=== PATIENT | male | born 2000 | race African-American/Black ===

== ENCOUNTER 2020-09-26 14:11 | Outpatient (REF) | payer MEDICAID, SELFPAY | END 2020-09-26 14:12 | disposition home or self-care (01) | LOC: HO.LAB 14:11 | PROVIDERS: Visit Provider Internal Medicine | DX: Z20.828 Contact with and (suspected) exposure to other viral communicable diseases (principal) | CPT/HCPCS: C9803; U0003 ==

== ENCOUNTER 2020-10-06 12:03 | Outpatient (REF) | payer MEDICAID, SELFPAY | END 2020-10-06 12:04 | disposition home or self-care (01) | LOC: HO.LAB 12:03 | PROVIDERS: Visit Provider Internal Medicine | DX: Z20.828 Contact with and (suspected) exposure to other viral communicable diseases (principal) | CPT/HCPCS: C9803; U0003 ==

== ENCOUNTER 2020-11-24 15:35 | Outpatient (REF) | payer MEDICAID, SELFPAY | END 2020-11-24 15:36 | disposition home or self-care (01) | LOC: HO.LAB 15:35 | PROVIDERS: Visit Provider Internal Medicine | DX: Z20.828 Contact with and (suspected) exposure to other viral communicable diseases (principal) | CPT/HCPCS: 36415; C9803; U0003 ==

== ENCOUNTER 2022-03-08 12:19 | Emergency (ER) | payer MEDICAID, SELFPAY ==
--- NOTE | ~2022-03-08 | XR_ITS ---
EXAMINATION: XR CHEST CLINICAL INFORMATION: Cough for 3 weeks COMPARISON: None TECHNIQUE: 2 views of the chest were obtained. FINDINGS: No significant abnormality is noted involving the heart, lungs, mediastinum, bony thorax or soft tissues. XR/XR chest 2V IMPRESSION: No acute disease.
[2022-03-08 12:31] VITALS: BP 144/88; PULSE 64; RESP 16; TEMP 36.3; O2SAT 100; BMI 41.5
[2022-03-08 13:18] LABS: COVID-19 Test Negative (Negative); IDNOW Serial# 16C4AD1C; Influenza A Negative (Negative); Influenza B2 Negative (Negative)
--- NOTE | 2022-03-08 13:56 | ED_ITS ---
HPI - URI/Sore Throat General Chief Complaint: Upper Respiratory Symptoms Stated Complaint: coughing Time Seen by Provider: 03/08/22 12:49 Source: patient Mode of arrival: ambulatory Limitations: no limitations History of Present Illness HPI Narrative: 22-year-old male with a past medical history of childhood asthma currently using his albuterol inhaler presenting to the ED with complaints of 3 weeks of nasal congestion/rhinorrhea with a dry cough that has now started to produce some yellow colored sputum over the past few days. He denies any recent travel or sick contacts. He denies ever being intubated or hospitalized for his asthma. He denies any measured fevers, headaches, neck pain/stiffness, chest pain, shortness of breath, dyspnea on exertion, orthopnea, nausea/vomiting/diarrhea constipation, abdominal pain, back pain, lower extremity edema or calf tenderness or any other symptoms complaints or concerns at this time. MD elicited complaint: cough, rhinorrhea and nasal congestion Pertinent past history: asthma Onset (ago): week(s) (3) Consistency: constant and progressively worsening Severity: moderate Description of mucous: clear and yellow Able to tolerate fluids by mouth: Yes Exacerbating factors: nothing Relieving factors: nothing Associated symptoms: rhinorrhea and nasal congestion Treatments prior to arrival: other ([id number] medicine and his albuterol inhaler) Related Data Previous Rx's Medication Instructions Recorded albuterol sulfate 0.63 mg/3 mL 0.63 mg (3 mL) INHALATION QID PRN 03/08/22 solution for nebulization #75 ml albuterol sulfate 90 mcg/actuation 1 inh INHALATION QID PRN #8.5 g 03/08/22 aerosol inhaler azithromycin 250 mg tablet See Rx Instructions PO .COMPLEX #6 03/08/22 tab codeine 10 mg-guaifenesin 100 mg/5 5 ml PO Q6H PRN #120 ml 03/08/22 mL oral liquid (Guaifenesin AC) nebulizers (AeroEclipse II #1 ea 03/08/22 Nebulizer) prednisone 20 mg tablet 40 mg PO DAILY 5 Days #10 tab 03/08/22 Allergies Allergy/AdvReac Type Severity Reaction Status Date / Time animal dander Allergy Itchy Eyes Verified 03/08/22 12:38 shrimp AdvReac Intermediate Gastrointestinal Verified 03/08/22 12:38 Upset Review of Systems Review of Systems: Constitutional : denies med noncompliance, no history of PE or DVT, denies recent travel, No Fever, No Chills ENT/Mouth : + nasal congestion/rhinorrhea, No Hoarseness, No sore throat, No Sinus Pressure, No Ear Pain, No stridor, Eyes: No Redness, No Discharge, No Vision Changes Cardiovascular : No Chest Pain, No SOB, No Dyspnea on Exertion, No Edema, no pleurisy, Respiratory : + Cough, No wheezing, No Sputum, no stridor, no hemoptysis, Gastrointestinal : No Nausea, No Vomiting, No Diarrhea, No abdominal Pain Genitourinary : No Dysuria, No Hematuria Musculoskeletal : No joint pain/swelling, No Myalgias Extremities: no extremity swelling /pain Skin : No rash, no itching, no swelling Neuro : No Weakness, No Numbness, No Headache, No Dizziness, No Paresthesias Psych : No anxiety, depression Heme/Lymph: No Bruising, No Bleeding Endocrine : No Polyuria, No Polydipsia Yes all other systems are reviewed and are negative [facility] Past Medical History Attestation statement: The following information was validated with the patient. Medical History Asthma Obesity Seasonal allergies Social History Social History Advance Directives: No Advance Directives Information Provided: No Physical Exam Vital Signs: Vital Signs: Last Vital Signs Temp 97.4 F 03/08/22 12:31 Pulse 64 03/08/22 12:31 Resp 16 03/08/22 12:31 BP 144/88 H 03/08/22 12:31 Pulse Ox 100 03/08/22 12:31 BMI result Body Mass Index 41.5 vital signs have been reviewed as normal and appeared to be correct. Blood pressure 144/88 Heart rate normal. Respiration rate normal. Temperature normal. Oxygen saturation normal. Appearance: Alert. Oriented X3. No acute distress. Head: Normal external exam. Normocephalic. Atraumatic. Eyes: PERRLA. EOMI. Conjunctiva and sclera normal. Eyelids normal. ENT: EAC normal. TM's Normal. Pharynx normal. Uvula midline. Moist mucous membranes. No lesions/ulcerations or masses noted on the tongue. Normal voice. No trismus noted. No drooling noted. No muffled voice noted. Neck: Normal inspection. Neck supple. FROM. No adenopathy. Thyroid Normal. No tracheal deviation noted. No crepitus is noted. No meningeal signs. No neck mass noted. No signs of trauma noted. CVS: Normal heart rate and rhythm. Heart sound normal. Pulses normal throughout. No murmurs/rales/gallops. Respiratory: No respiratory distress. Painless inspiration. Breath sounds normal. No wheezes/rales/rhonchi noted. Chest nontender. No crepitus is noted. No signs of trauma noted. No accessory muscle usage noted or decreased air movement noted. No signs of trauma. Back: Full range of motion noted. Skin: Skin warm and dry. Normal skin color. Normal skin turgor. No rashes/lesions/lacerations noted. Extremities: No lower extremity edema. No calf tenderness is noted. Extremities exhibit normal range of motion and nontender. Neuro: Oriented X 3. No motor deficit. No sensory deficit. Reflexes normal. Normal steady gait. No focal neuro deficits noted. CN's II-XII intact bilaterally? Vascular: + radial pulses/+ 2 distal pedal pulses/+2 dorsalis pedis b/l. Normal cap refill. No cyanosis noted to upper extremity nails and lower extremity toes nails. Course Course Course Narrative: 1:30pm - 22-year-old male with a past medical history of childhood asthma currently using his albuterol inhaler presenting to the ED with complaints of 3 weeks of nasal congestion/rhinorrhea with a dry cough that has now started to produce some yellow colored sputum over the past few days. Patient negative for COVID and flu. Obtain chest x-ray. Chest x-ray negative will DC home antibiotics for bronchitis and symptomatic treatment instructions return if any new or worsening symptoms. Patient understands agrees with this plan. MDM - URI/Sore Throat Medical Records Attestation: I reviewed the patient's medical records. Lab Data Labs: Lab Results 03/08/22 03/08/22 Range/Units 12:54 12:54 COVID-19 (DONELL) Negative (Negative) COVID-19 Clin Com See Note Influenza Type A (SHERICE) Negative (Negative) Influenza Type B (SHERICE) Negative (Negative) Influenza A & B Note See Note Imaging Data Chest x-ray: Attestation: I personally reviewed and interpreted this imaging study as follows: Discharge Plan Discharge Clinical Impression: Asthma exacerbation, Bronchitis, Acute bronchitis Patient Disposition: Home, Self-Care Instructions: Asthma (DC), Acute Bronchitis (ED) Prescriptions: New azithromycin 250 mg tablet See Rx Instructions PO .COMPLEX Qty: 6 0RF Rx Instructions: take 500 mg today (day 1), then 250 mg for 4 days (days 2-5) albuterol sulfate 90 mcg/actuation HFA aerosol inhaler 1 inh inhalation QID PRN (Reason: shortness of breath or wheezing) Qty: 8.5 0RF (DME) AeroEclipse II Nebulizer Misc See Rx Instructions .ROUTE .MEDSUPPLY Qty: 1 0RF Rx Instructions: As directed albuterol sulfate 0.63 mg/3 mL solution for nebulization 0.63 mg inhalation QID PRN (Reason: shortness of breath or wheezing) Qty: 75 0RF prednisone 20 mg tablet 40 mg PO DAILY 5 Days Qty: 10 0RF codeine-guaifenesin [Guaifenesin AC] 10-100 mg/5 mL liquid 5 ml PO Q6H PRN (Reason: cold symptoms) Qty: 120 0RF Referrals: Physician,None [Primary Care Provider] - (your pcp) Stand Alone Forms: Work/School Release Print Language: Burmese
== END 2022-03-08 14:09 | disposition home or self-care (01) ==
PROVIDERS: Physician Assistant Medical; Emergency Provider Student in an Organized Health Care Education/Training Program
DX: J20.9 Acute bronchitis, unspecified (principal); J45.901 Unspecified asthma with (acute) exacerbation; R05.9 Cough, unspecified; Z20.822 Contact with and (suspected) exposure to COVID-19; Z79.899 Other long term (current) drug therapy
CPT/HCPCS: 71046; 87502; 87635; 99283

== ENCOUNTER 2022-12-11 09:22 | Emergency (ER) | payer MEDICAID, SELFPAY ==
[2022-12-11 09:28] VITALS: BP 140/85; PULSE 77; RESP 18; TEMP 35.9; O2SAT 100; BMI 42.3
[2022-12-11 09:30] VITALS: BP 140/85; PULSE 77; RESP 18; TEMP 35.9; O2SAT 100
--- NOTE | 2022-12-11 09:38 | ED_ITS ---
HPI - Back Pain/Injury General Chief Complaint: Back Pain/Injury Stated Complaint: L neck/shoulder pain Time Seen by Provider: 12/11/22 09:28 Source: patient Mode of arrival: ambulatory Limitations: no limitations History of Present Illness MD elicited complaint: back pain Onset (ago): day(s) (2) Timing: constant and progressively worsening Severity: mild Similar Symptoms Previously: Yes Quality: aching Location: thoracic spine Radiation: none Exacerbating factors: other ( certain movements) Relieving factors: none Context: other ( patient reports he was just sitting and had a pain and he stretched his back and since then the pain worsened) Associated symptoms: denies other symptoms Work related injury: No Related Data Previous Rx's Medication Instructions Recorded albuterol sulfate 0.63 mg/3 mL 0.63 mg (3 mL) inhalation QID PRN 03/08/22 solution for nebulization shortness of breath or wheezing #75 mL albuterol sulfate 90 mcg/actuation 1 inh inhalation QID PRN shortness 03/08/22 aerosol inhaler of breath or wheezing #8.5 grams azithromycin 250 mg tablet See Rx Instructions PO .COMPLEX #6 03/08/22 tabs codeine 10 mg-guaifenesin 100 mg/5 5 ml PO Q6H PRN cold symptoms #120 03/08/22 mL oral liquid (Guaifenesin AC) mL nebulizers (AeroEclipse II #1 ea 03/08/22 Nebulizer) prednisone 20 mg tablet 40 mg PO DAILY rash 5 days #10 tabs 03/08/22 cyclobenzaprine 10 mg tablet 10 mg PO Q8H #14 tabs 12/11/22 lidocaine 5 % topical patch 1 patch topical DAILY pain #15 ea 12/11/22 (Lidoderm) naproxen 500 mg tablet 500 mg PO BID PRN pain #14 tabs 12/11/22 Allergies Allergy/AdvReac Type Severity Reaction Status Date / Time animal dander Allergy Itchy Eyes Verified 03/08/22 12:38 shrimp AdvReac Intermediate Gastrointestinal Verified 03/08/22 12:38 Upset Review of Systems Review of Systems: Constitutional : No trauma, No Weight loss, No Fever, No Chills, ENT/Mouth : No Hearing loss, No Ear Pain, No Nasal Congestion, No Sinus Pain, No Hoarseness, No sore throat, No Rhinorrhea, No Swallowing Difficulty Cardiovascular : No Chest Pain, No SOB Respiratory : No Cough, No Dyspnea Gastrointestinal : No Nausea, No Vomiting, No Diarrhea, No abdominal Pain, No Hematochezia, No Melena Genitourinary : No Dysuria, No Urinary Frequency, No Hematuria, No Urinary or Bowel Incontinence/retention Musculoskeletal : + Back pain, No neck pain, No joint stiffness, No joint swelling Skin : No Skin Lesions, No rash or signs of infection Neuro : No Weakness, No radiation, No Numbness, No Paresthesias, No headache, no loss of bowel or bladder incontinence, no saddle anesthesia, Focal weakness, No radiation Denies history of IV drug usage. Yes all other systems are reviewed and are negative [facility] Past Medical History Attestation statement: The following information was validated with the patient. Source: old records reviewed and nursing notes reviewed Medical History Asthma Obesity Seasonal allergies Social History Social History Smoked in Last 30 Days: Yes Use of substances other than those prescribed or required for medical reasons: No Physical Exam Vital Signs: Vital Signs: Last Vital Signs Temp 96.7 F L 12/11/22 09:30 Pulse 77 12/11/22 09:30 Resp 18 12/11/22 09:30 BP 140/85 H 12/11/22 09:30 Pulse Ox 100 12/11/22 09:30 O2 Del Method 12/11/22 09:30 BMI result Body Mass Index 42.3 vital signs have been reviewed as normal and appeared to be correct. Blood pressure 140/85. Heart rate normal. Respiration rate normal. Temperature normal. Oxygen saturation normal. Appearance: Alert. Oriented X3. No acute distress. Head: Normal external exam. Normocephalic. Atraumatic. Eyes: PERRLA. EOMI. Conjunctiva and sclera normal. Eyelids normal. ENT: Pharynx normal. Uvula midline. Moist mucous membranes. No trismus noted. No drooling noted. No muffled voice noted. Neck: Normal inspection. Neck supple. FROM. No adenopathy. Thyroid Normal. No meningeal signs. No neck mass noted. CVS: Normal heart rate and rhythm. Respiratory: No respiratory distress. Painless inspiration. Back: Full range of motion noted. No obvious deformities, or edema. Mild para- spinal muscular tenderness at left thoracic region. No mid thoracic cervical or lumbar tenderness noted. Full ROM in back and lower extremities. 5/5 strength hip extension/flexion, abduction, adduction. Straight leg raise test negative on right; Straight leg raise test negative on left; Reflexes normal ankle and knee bilaterally; EHL motor strength normal bilaterally. No rashes/lesion/induration/fluctuance or signs infection noted. Skin: Skin warm and dry. Normal skin color. Normal skin turgor. No rashes/lesions/lacerations noted. Extremities: Extremities exhibit normal range of motion. Extremities nontender. Neuro: Oriented X 3. No motor deficit. No sensory deficit. Reflexes normal. Patient has a normal steady gait. Course Course Course Narrative: Pt c likely muscular pain, but could be herniated disc. Neuro exam shows no deficits. Not c/w AAA/epidural abscess/dissection.No high risk Hx (Incont, fever, immunosupp, recent surgery/LP, coag, signif trauma, wt loss, puls mass, hx/o Ca, TB, or IVDU) to warrant MRI/CT today. Not c/w Pyelo/UTI/kidney stone/spinal fx. Not cauda equina syndrome. Imaging not currently indicated. DC c meds and f/u. Discharge Plan Discharge Clinical Impression: Strain of thoracic region Patient Disposition: Home, Self-Care Instructions: Muscle Strain (ED) Prescriptions: New naproxen 500 mg tablet 500 mg PO BID PRN (Reason: pain) Qty: 14 0RF cyclobenzaprine 10 mg tablet 10 mg PO Q8H Qty: 14 0RF lidocaine [Lidoderm] 5 % adhesive patch,medicated 1 patch topical DAILY Qty: 15 0RF Rx Instructions: leave on most painful area for up to 12 hrs. May be substituted No Action azithromycin 250 mg tablet See Rx Instructions PO .COMPLEX Qty: 6 0RF Rx Instructions: take 500 mg today (day 1), then 250 mg for 4 days (days 2-5) albuterol sulfate 90 mcg/actuation HFA aerosol inhaler 1 inh inhalation QID PRN (Reason: shortness of breath or wheezing) Qty: 8.5 0RF (DME) AeroEclipse II Nebulizer Misc See Rx Instructions .ROUTE .MEDSUPPLY Qty: 1 0RF Rx Instructions: As directed albuterol sulfate 0.63 mg/3 mL solution for nebulization 0.63 mg inhalation QID PRN (Reason: shortness of breath or wheezing) Qty: 75 0RF prednisone 20 mg tablet 40 mg PO DAILY 5 Days Qty: 10 0RF codeine-guaifenesin [Guaifenesin AC] 10-100 mg/5 mL liquid 5 ml PO Q6H PRN (Reason: cold symptoms) Qty: 120 0RF Referrals: Physician,None [Primary Care Provider] - 2 days ( your PCP as needed) Stand Alone Forms: Work/School Release
== END 2022-12-11 10:09 | disposition home or self-care (01) ==
PROVIDERS: Emergency Provider Emergency Medicine
DX: M54.6 Pain in thoracic spine (principal); M54.50 Low back pain, unspecified; Z79.899 Other long term (current) drug therapy
CPT/HCPCS: 99283; 99284

== ENCOUNTER 2023-05-29 19:49 | Emergency (ER) | payer OTHER, SELFPAY ==
[2023-05-29 20:03] VITALS: BP 130/75; PULSE 86; RESP 18; TEMP 36.4; O2SAT 99; BMI 45.3
--- NOTE | 2023-05-29 20:03 | ED_ITS ---
HPI - General Adult General Chief complaint: Abdominal Pain Stated complaint: Abd pain/n/d Time Seen by Provider: 05/29/23 22:15 Source: patient Mode of arrival: ambulatory History of Present Illness HPI narrative: 23-year-old male who has a positive sick contact as well as stating he may have the in a bed sandwich yesterday as he has had multiple episodes of watery diarrhea as well as nausea, vomiting prevented him from eating or drinking anything. He denies any fevers, chills, urinary symptoms and has no other past medical history. Related Data Previous Rx's Medication Instructions Recorded albuterol sulfate 0.63 mg/3 mL 0.63 mg (3 mL) inhalation QID PRN 03/08/22 solution for nebulization shortness of breath or wheezing #75 mL albuterol sulfate 90 mcg/actuation 1 inh inhalation QID PRN shortness 03/08/22 aerosol inhaler of breath or wheezing #8.5 grams azithromycin 250 mg tablet See Rx Instructions PO .COMPLEX #6 03/08/22 tabs codeine 10 mg-guaifenesin 100 mg/5 5 ml PO Q6H PRN cold symptoms #120 03/08/22 mL oral liquid (Guaifenesin AC) mL nebulizers (AeroEclipse II #1 ea 03/08/22 Nebulizer) prednisone 20 mg tablet 40 mg PO DAILY rash 5 days #10 tabs 03/08/22 cyclobenzaprine 10 mg tablet 10 mg PO Q8H #14 tabs 12/11/22 lidocaine 5 % topical patch 1 patch topical DAILY pain #15 ea 12/11/22 (Lidoderm) naproxen 500 mg tablet 500 mg PO BID PRN pain #14 tabs 12/11/22 ondansetron HCl 4 mg tablet 4 mg PO Q8H PRN nausea and 05/29/23 vomiting 4 days #7 tabs Allergies Allergy/AdvReac Type Severity Reaction Status Date / Time animal dander Allergy Itchy Eyes Verified 03/08/22 12:38 shrimp AdvReac Intermediate Gastrointestinal Verified 03/08/22 12:38 Upset Review of Systems Review of Systems: Pertinent positives and negatives as stated in HPI PMFSH Past Medical History Source: nursing notes reviewed Medical History Asthma Obesity Seasonal allergies Social History Social History Alcohol intake: current Alcohol intake frequency: holidays/special occasions only Smoked in Last 30 Days: Yes Use of substances other than those prescribed or required for medical reasons: No Advance Directives: No Advance Directives Information Provided: No Physical Exam ED Vital Signs: Vital Signs - 24 hr 05/29/23 20:03 05/29/23 22:21 05/29/23 23:46 Temperature 97.6 F 99.9 F 98.4 F Pulse Rate 86 73 66 Respiratory Rate 18 17 16 Blood Pressure 130/75 126/70 133/71 Pulse Oximetry 99 98 98 Oxygen Delivery Method Room Air Room Air Room Air BMI result Body Mass Index 45.3 VITAL SIGNS: Reviewed. GENERAL: Well developed, well nourished, in no acute distress. HEAD: Normocephalic/atraumatic EYES: PERRLA, EOMI EARS: Ext canals without abnormality NOSE: Nares patent bilateral OROPHARYNX: no oral lesions noted, posterior pharynx clear NECK: Supple, no adenopathy LUNGS: Normal breath sounds. No adventitious sounds or accessory muscle use. SpO2<98> CARDIOVASCULAR: Regular rate and rhythm without noted murmurs ABDOMEN: Soft, non-tender, non-distended with bowel sounds. MUSCULOSKELETAL: No tenderness, deformities, or effusions noted on gross inspec tion. EXTREMITIES: No cyanosis, clubbing or edema. SKIN: Inspection of the skin reveals no rashes NEUROLOGIC: Alert and oriented x 4. Strength and sensation to light touch were grossly intact x 4. Course Course Course Narrative: This is a rapid medical exam: Additional HPI, ROS, PE not included below will be deferred to primary provider. Patient is a 23-year-old male with history of asthma presenting with complaint of epigastric abdominal pain since noon yesterday, as well as associated diarrhea, today developed nausea and vomiting. Denies recent antibiotic use. States father had similar symptoms last week. States symptoms began immediately after eating lunch at [employer] yesterday. [place] es fever/chills. Denies urinary symptoms. Abdomen soft and nontender, normoactive bowel sounds. Plan: labs, UA, GI panel Medications Administered Discontinued Medications Generic Name Dose Route Start Last Admin Trade Name Freq PRN Reason Stop Dose Admin Sodium Chloride 1,000 mls @ 999 mls/hr 05/29/23 22:30 05/29/23 22:50 Ns IV 05/29/23 23:30 999 mls/hr .Q1H1M BRIT Administration Ondansetron HCl 4 mg 05/29/23 22:29 05/29/23 22:50 Ondansetron Hcl 4 Mg/2 Ml Vial IVPUSH 05/29/23 22:30 4 mg ONCE ONE Administration Medical Decision Making Medical Decision Making [facility] Narrative: 23-year-old male with history and clinical presentation, DDX: Gastroenteritis, IBS, No suspicion for cholecystitis, pancreatitis, SBO, gastritis. I reviewed all investigations, patient is currently tolerating oral intake without difficulty, he has been unable to provide any urine or stool sample at this time. Hematologic indices are grossly within normal limits with the exception of a monocytosis. Chemistry indices are grossly within normal limits. Patient is otherwise discharged home with presumptive gastroenteritis/possible food contamination and instructed to keep well hydrated and given recommendation s for nutritional/dietary changes to help with the diarrhea and also prescribed antinausea medication. Differential Diagnosis Differential Diagnoses: The differential diagnosis associated with the presentation includes Please see the discussion above Lab Data [facility] Lab Attestation statement: I reviewed the patient's lab results. Please see the discussion above 05/29/23 20:13 05/29/23 20:13 Labs: Lab Results 05/29/23 05/29/23 Range/Units 20:13 20:13 WBC 7.3 (4.8-10.8) X10*3/uL RBC 5.05 (4.60-5.80) X10*6/uL Hgb 14.4 (14.0-18.0) g/dl Hct 43.2 (42.0-52.0) % MCV 85.5 (80.0-98.0) fL MCH 28.5 (27.0-33.0) pg MCHC 33.3 (31.0-36.0) g/dl RDW 13.3 (11.0-16.0) % Plt Count 254 (160-400) X10*3/uL MPV 9.1 L (9.4-12.4) fL Immature Gran % (Auto) 0.1 (0.0-0.4) % Neut % (Auto) 54.3 (45-73) % Lymph % (Auto) 26.2 (20-40) % [place] % (Auto) 17.4 H (2-11) % Eos % (Auto) 1.7 (0-4) % Baso % (Auto) 0.3 (0-2) % Lymph # (Auto) 1.9 (1.2-4.9) X10*3/uL [place] # (Auto) 1.3 H (0.1-1.2) X10*3/uL Eos # (Auto) 0.1 (0.0-0.4) X10*3/uL Baso # (Auto) 0.0 (0.0-0.2) X10*3/uL Abs Immat Gran (auto) 0.01 (0.00-0.03) X10*3/uL Absolute Neuts (auto) 3.9 (2.0-8.3) x10*3/uL Absolute Nucleated RBC 0.000 (0.0-0.012) X10*3/uL Nucleated RBC % (auto) 0.0 (0.0-0.2) /100WBC Sodium 138 (135-145) mmol/L Potassium 3.8 (3.3-5.1) mmol/L Chloride 107 (96-108) mmol/L Carbon Dioxide 22 (22-29) mmol/L Anion Gap 13 (12-20) BUN 11 (9-16) mg/dL Creatinine 0.83 (0.5-1.4) mg/dL Estim Creat Clear Calc 194.4 Estimated GFR > 60 Random Glucose 95 (60-115) mg/dL Calcium 9.4 (8.4-10.2) mg/dL Magnesium 2.1 (1.6-2.6) mg/dL Total Bilirubin 0.9 (0.0-1.0) mg/dL AST 44 H (5-37) U/L ALT 34 (0-40) U/L Alkaline Phosphatase 72 (39-117) U/L Total Protein 7.7 (6.5-8.0) g/dL Albumin 3.9 (3.5-5.0) g/dL External Record Review External record reviewed: Outpatient record and Prior outpatient labs Discharge Plan Discharge Clinical Impression: Gastroenteritis Patient Disposition: Home, Self-Care Instructions: Gastroenteritis (ED), Nutrition Tips for Relief of Diarrhea (ED) Additional Instructions: 1. Resume all home medications as prescribed. 2. Increase your fluid hydration, especially with water. I would recommend a bland diet for the next 1-2 days. Please review the information for dietary changes to help alleviate diarrhea. 3. Follow-up with your primary care provider. Return to the ER for any worsening symptoms. Prescriptions: New ondansetron HCl 4 mg tablet 4 mg PO Q8H PRN (Reason: nausea and vomiting) 4 Days Qty: 7 0RF No Action naproxen 500 mg tablet 500 mg PO BID PRN (Reason: pain) Qty: 14 0RF cyclobenzaprine 10 mg tablet 10 mg PO Q8H Qty: 14 0RF lidocaine [Lidoderm] 5 % adhesive patch,medicated 1 patch topical DAILY Qty: 15 0RF Rx Instructions: leave on most painful area for up to 12 hrs. May be substituted azithromycin 250 mg tablet See Rx Instructions PO .COMPLEX Qty: 6 0RF Rx Instructions: take 500 mg today (day 1), then 250 mg for 4 days (days 2-5) albuterol sulfate 90 mcg/actuation HFA aerosol inhaler 1 inh inhalation QID PRN (Reason: shortness of breath or wheezing) Qty: 8.5 0RF (DME) AeroEclipse II Nebulizer Misc See Rx Instructions .ROUTE .MEDSUPPLY Qty: 1 0RF Rx Instructions: As directed albuterol sulfate 0.63 mg/3 mL solution for nebulization 0.63 mg inhalation QID PRN (Reason: shortness of breath or wheezing) Qty: 75 0RF prednisone 20 mg tablet 40 mg PO DAILY 5 Days Qty: 10 0RF codeine-guaifenesin [Guaifenesin AC] 10-100 mg/5 mL liquid 5 ml PO Q6H PRN (Reason: cold symptoms) Qty: 120 0RF
[2023-05-29 20:19] LABS: Basophils Percent Auto 0.3 % (0-2); Eosinophils Absolute Auto 0.1 X10*3/uL (0.0-0.4); Eosinophils Percent Auto 1.7 % (0-4); Hematocrit 43.2 % (42.0-52.0); Hemoglobin 14.4 g/dl (14.0-18.0); Imm Gran Abs Auto 0.01 X10*3/uL (0.00-0.03); Imm Gran Pct Auto 0.1 % (0.0-0.4); Lymphocytes Absolute Auto 1.9 X10*3/uL (1.2-4.9); Lymphocytes Percent Auto 26.2 % (20-40); MANUAL DIFF FLAG NO; Mean Corpuscular HGB Conc 33.3 g/dl (31.0-36.0); Mean Corpuscular Hemoglobin 28.5 pg (27.0-33.0); Mean Corpuscular Volume 85.5 fL (80.0-98.0); Mean Platelet Volume 9.1 fL (9.4-12.4); Monocytes Absolute Auto 1.3 X10*3/uL (0.1-1.2); Monocytes Percent Auto 17.4 % (2-11); Neutrophils Absolute Auto 3.9 x10*3/uL (2.0-8.3); Neutrophils Percent Auto 54.3 % (45-73); Platelet Count 254 X10*3/uL (160-400); Red Blood Count 5.05 X10*6/uL (4.60-5.80); Red Cell Distribution Width 13.3 % (11.0-16.0); White Blood Count 7.3 X10*3/uL (4.8-10.8)
[2023-05-29 20:38] LABS: Alanine Aminotransferase 34 U/L (0-40); Albumin Level 3.9 g/dL (3.5-5.0); Alkaline Phosphatase 72 U/L (39-117); Anion Gap 13 (12-20); Aspartate Amino Transferase 44 U/L (5-37); Bilirubin Total 0.9 mg/dL (0.0-1.0); Blood Urea Nitrogen 11 mg/dL (9-16); Calcium 9.4 mg/dL (8.4-10.2); Carbon Dioxide 22 mmol/L (22-29); Chloride 107 mmol/L (96-108); Creatinine Clr Calc Pharmacy 194.4; Estimated Glomerular Filt Rate > 60; Glucose Random 95 mg/dL (60-115); Magnesium 2.1 mg/dL (1.6-2.6); Potassium 3.8 mmol/L (3.3-5.1); Sodium 138 mmol/L (135-145); Total Protein 7.7 g/dL (6.5-8.0)
[2023-05-29 22:21] VITALS: BP 126/70; PULSE 73; RESP 17; TEMP 37.7; O2SAT 98
[2023-05-29] MEDS: ondansetron HCL 4 MG/2 ML VIAL IVPUSH (22:50)
[2023-05-29] MEDS: 0.9 % Sodium Chloride 1,000 ML 999 ML IV (22:50)
[2023-05-29 23:01] LABS: Appearance Urine Clear; Color Urine Yellow; Glucose Urine UA Negative (Negative); Leukocyte Esterase Urine Negative (Negative); Nitrite Urine Negative (Negative); PH 6.5 (5.0-9.0); Specific Gravity - Urine >= 1.030 (1.005-1.025); Urine Blood Negative (Negative); Urine Ketones Negative (Negative); Urine Protein Trace mg/dL (Neg-Trace)
--- NOTE | 2023-05-29 23:39 | MHC.EDTECH ---
PATIENT WAS TRIED ON P/O CHALLENGE AND TOLERATED WELL ,LUKAS RIBEIRO AND PROVIDER DANIELLE AWARE .
[2023-05-29 23:46] VITALS: BP 133/71; PULSE 66; RESP 16; TEMP 36.9; O2SAT 98
== END 2023-05-30 00:29 | disposition home or self-care (01) ==
PROVIDERS: Registered Nurse Emergency; Emergency Provider Student in an Organized Health Care Education/Training Program
DX: K52.9 Noninfective gastroenteritis and colitis, unspecified (principal); Z79.899 Other long term (current) drug therapy
CPT/HCPCS: 36415; 80053; 81003; 83735; 85025; 96361; 96374; 99284; J2405

== ENCOUNTER 2023-11-07 09:07 | Outpatient (AMB) | payer OTHER, SELFPAY ==
--- NOTE | 2023-11-07 09:07 | A.OFFPC_ITS ---
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 Patient states that that when he went to donate plasma he was told that there was a murmur and was denied the ability to donate. Patient would like to discuss a weightloss plan and would like to know if gastric sleeve is an option. Patient states that he would like to be referred to get allergy test done as well. Patient states that dairy products upsets his stomach and he experiences stomach upset quite often. 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 Required: No Accompanied by: Self / Same As Patient Allergies animal dander Allergy (Verified 11/07/23 09:26) Itchy Eyes house dust Adverse Reaction (Intermediate, Verified 11/07/23 09:26) Sneezing Medication List - Last Reconciled 11/07/23 by Randa Light CNP albuterol sulfate 0.63 mg (3 mL) inhalation QID PRN albuterol sulfate 90 mcg/actuation 1 inh inhalation QID PRN cyclobenzaprine 10 mg PO Q8H fexofenadine (Staci Allergy) 180 mg PO DAILY naproxen 500 mg PO BID PRN nebulizers (AeroEclipse II Nebulizer) As directed oxymetazoline 0.05% (Afrin (oxymetazoline)) 2 sprays intranasal Q12H PRN Tobacco use date assessed: 11/07/23 Dental Screening Dental Screen Date: 11/07/23 Did you have a dental visit in the last 12 months?: Yes Did you have a dental problem in the last 6 months where you did not have access to dental care?: No Was dental information given to patient?: Patient has dentist HPI HPI Comments History of Present Illness Details New patient Prior PCP: In [place]. Relocated to the [facility] in 2018 Last office visit/CPE: About 7 years Last blood work in May, Acute issue(s): Seasonal Allergy -He is on fexofenadine 180 mg daily and afrin Asthma -He has an albuterol inhaler and nebuliz er -No acute symptoms since 2013 PMHx: Asthma, obesity, seasonal allergy SurgHx: None FHx: Mom: DM, HTN, thyroid disease. Dad: Asthma SocHx: Nonsmoker. Drinks alcohol occasional. No recreational drugs He notes that he exercises at the gym 2-3 times monthly. He is busy with work and helping his parents. He has not been making healthy dietary choices She notes that he is sexually active, in a monogamous relationship, and has no concerns for STD [facility] Medical History (Updated 11/07/23 @ 09:55 by Randa Light CNP) Sinusitis Seasonal allergies Obesity Asthma Surgical History (Updated 11/07/23 @ 09:28 by Latasha Pat MA) No pertinent past surgical history Family History (Updated 11/07/23 @ 09:29 by Latasha Pat MA) Mother High blood pressure Diabetes Thyroid disorder Father Asthma Social History Housing: Apartment Alcohol intake: current Alcohol intake frequency: holidays/special occasions only Patient Tobacco Use Status: Never used Tobacco e-Cigarette/Vaping Use: Currently Using service: No Current occupational status: employed 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 1. Little interest or pleasure in doing things: not at all 2. Feeling down, depressed, or hopeless: not at all 3. Trouble falling or staying asleep, or sleeping too much: not at all 4. Feeling tired or having little energy: several days 5. Poor appetite or overeating: not at all 6. Feeling bad about yourself - or that you are a failure or have let yourself or your family down: not at all 7. Trouble concentrating on things, such as reading the newspaper or watching television: several days 8. Moving or speaking so slowly that other people could have noticed. Or the opposite - being so fidgety or restless that you have been moving around a lot more than usual: not at all 9. Thoughts that you would be better off or of hurting yourself in some way: not at all Total score: 2 Depression Screening Interpretation: Negative Depression Screening Done: Yes 97380 - PHQ-9 Billing: Yes Source: Developed by Drs. Brandon Levin, Felicia Hernández, John Oliver and colleagues, with an educational papi from [employer]. Thrive Questionnaire Date Thrive assessed: 11/07/23 I am a: Patient What is your living situation today?: I have a steady place to live Within the past 12 months, did the food you bought not last and you didn't have the money to get more?: Never true Within the past 12 months, did you worry whether your food would run out before you got money to buy more?: Never true Do you have trouble paying for medicines?: No Do you have trouble getting transportation to medical appointments?: No Do you have trouble paying your heating and electricity bill?: No Do you have trouble taking care of your child, family member or friend?: No Do you have trouble with day-to-day activities such as bathing, preparing meals, shopping, managing finances, etc.?: No Are you currently unemployed and looking for a job?: No Are you interested in more education?: No Please select the resources that you would like help with: None Currently or been in a relationship where the following occur: no concerns reported AUDIT C Alcohol Use Questionnaire (AUDIT-C) 1. How often do you have a drink containing alcohol?: Monthly or less 2. How many drinks containing alcohol do you have on a typical day when you are drinking?: 3 or 4 3. How often do you have six or more drinks on one occasion?: Less than monthly Total Score: 3 PALMER-7 AMB Questionnaire PALMER-7 Date PALMER - 7 assessed: 11/07/23 Feeling nervous, anxious, or on edge: 0 = Not at all Not being able to stop or control worryin = Not at all Worrying too much about different things: 1 = Several days Trouble relaxin = Not at all Being so restless that it is hard to sit still: 0 = Not at all Becoming easily annoyed or irritable: 1 = Several days Feeling afraid as if something awful might happen: 0 = Not at all Total PALMER-7 score (0-4 normal; 5-9 mild; 10-14 moderate; 15-21 severe): 2 Source: Developed by Drs. Brandon Levin, Felicia Hernández, John Oliver and colleagues, with an educational papi from [employer]. PALMER-7 Assessment Billing PALMER-7 Assessment Tool: PALMER-7 Assessment 17803 ACT Questionnaire In the past 4 weeks, how much of the time did your asthma keep you from getting as much done at work, school or at home?: None of the time During the past 4 weeks, how often have you had shortness of breath?: Not at all During the past 4 weeks, how often did your asthma symptoms wake you up at night or earlier than usual in the morning?: Not at all During the past 4 weeks, how often have you had to use your rescue inhaler or nebulizer medication?: Not at all How would you rate your asthma control during the past 4 weeks?: Completely controlled ACT Interpretation: Negative Score: 25 Review of Systems Const Details: Denies chills, Denies fatigue, Denies fever(s), Denies headache(s) and Denies weakness HEENT Denies change in vision, Denies dizziness, Denies headache(s), Denies hearing loss, Denies nasal congestion, Denies sinus pain, Denies sinus pressure and Denies sore throat Card Denies chest pain, Denies lightheadedness, Denies dyspnea and Denies other (palpitations) Resp Denies cough, Denies dyspnea and Denies wheezing GI Denies abdominal pain, Denies melena, Denies hematochezia, Denies change in bowel habits, Denies dyspepsia and Denies nausea Denies hematuria and Denies dysuria Musc Denies abnormal gait, Denies myalgias, Denies arthralgias, Denies numbness and Denies tingling Skin/Breast Denies rash, Denies unusual bruising and Denies wounds Neuro Denies abnormal gait, Denies dizziness, Denies headache(s), Denies memory loss, Denies numbness, Denies Sensory deficit (Neuro), Denies tingling and Denies weakness Psych Denies anxiety, Denies depression and Denies memory loss Endo Denies cold intolerance, Denies fatigue, Denies heat intolerance, Denies polydipsia and Denies polyuria David/Lymph Denies easy bleeding and Denies easy bruising Aller/Immun Denies wheezing Physical exam (Primary Care) Vital Signs: Last Vital Signs Temp 97.6 F 11/07/23 09:08 Pulse 77 11/07/23 09:08 Resp 13 11/07/23 09:08 BP 128/76 11/07/23 09:08 Pulse Ox 99 11/07/23 09:08 Oxygen Delivery Method Room Air 11/07/23 09:08 BMI result Body Mass Index 44.8 Depression Screening Interpretation: Negative Currently or been in a relationship where the following occur: no concerns reported Const Other: General: no acute distress, well developed, alert and awake Nutritional Appearance: well nourished Orientation/consciousness: patient oriented x3 HENMT Head: Yes normocephalic and Yes atraumatic Ears: hearing grossly normal bilaterally and TM's normal bilaterally General nose exam: Normal external nose present and Normal nares present Mouth: Normal oral and palatal mucosa present and moist mucous membranes Teeth and gingiva: dentition normal Throat: Yes oropharynx normal Eyes Pupils: Equal, round and reactive pupils present and Pupil accommodation reflex normal EOM: EOMs intact bilaterally Neck Neck: Yes normal visual inspection, Yes no lymphadenopathy and Yes trachea midline Thyroid: Thyroid normal Carotids: no bruits Lymphatic: no lymphadenopathy noted Chest Chest palpation & inspection: normal inspection of the chest Resp Effort & Inspection: normal respiratory effort Auscultation: clear to auscultation bilaterally Cardio Rate: regular rate Rhythm: regular rhythm Heart sounds: S1 normal heart sound present, S2 normal heart sound present, no gallops, no murmurs and no rubs Bruits: no abdominal aortic bruits and no carotid bruits GI Palpation (GI): No Abdominal aortic bruit present, Soft to palpation, nontender, No hepatosplenomegaly present and No Rebound tenderness present Auscultation: normal bowel sounds General: Yes no CVA tenderness Back/Spine/Pelvis Back: no CVA tenderness Cervical Spine: cervical ROM normal and No Cervical spine tenderness Thoracic/Lumbar Spine: thoraco-lumbar ROM normal, No pain with thoraco-lumbar ROM, No thoracic spinal tenderness and No lumbar spinal tenderness Skin General: warm and dry. Normal skin color. Normal skin turgor Lesions: no lesions Rashes: no rashes Trauma: no lacerations or abrasions Wounds: no wounds Nails: normal Neuro General: patient oriented x3, gait normal and CN's II-XI intact bilaterally Cranial nerves: Yes Equal, round and reactive pupils present Cognition (Neuro): normal cognition Gait exam (Neuro): Normal gait present Motor exam (neuro): 5/5 motor strength present throughout Sensory Exam: No Sensory deficit (Neuro) Deep tendon reflexes (DTR's): Right patellar reflex intensity grade: 2+ and Left patellar reflex intensity grade: 2+ Extrem General: Yes normal to inspection, No edema and No calf tenderness Psych Appearance: grossly normal Affect: normal affect Attitude: cooperative Thought process: Normal thought process present Assessment and Plan Assessment & Plan (1) Normal physical examination, routine: Code(s): Z00.00 - Encounter for general adult medical examination without abnormal findings Plan: No significant physical restrictions or limitations noted Advised to get fasting blood work done and schedule a telehealth visit for labs review Follow-up with symptoms or concerns Verbalized understanding and agreed with treatment plan (2) Asthma: Code(s): J45.909 - Unspecified asthma, uncomplicated Plan: No acute symptoms since 2013 ACT score is 25, well-controlled asthma Continue current treatment regimen Follow-up with symptoms or concerns Verbalized understanding and agreed with treatment plan (3) Obesity: Code(s): E66.9 - Obesity, unspecified Plan: He exercise at the gym 2-3 times monthly. He is busy with work and helping his parents. He has not been making healthy dietary choices He currently weighs 312 lb, BMI is 44.8 Healthy diet and routine exercise encouraged Referred to pump technician/dietitian Follow-up with symptoms or concerns Verbalized understanding and agreed with the treatment plan (4) Laboratory tests ordered as part of a complete physical exam (CPE): Code(s): Z00. - Encounter for general adult medical examination without abnormal findings Plan: Fasting labs ordered as part of a complete physical exam. Advised to fast for at least 10 hours before getting labs drawn. May drink water Verbalized understanding and agreed with treatment plan. Orders: Orders Lipid Panel Today Z00.00 - Encounter for general adult medical examination without abnormal findings TSH reflex Free T4 Today Z00.00 - Encounter for general adult medical examination without abnormal findings Coding Level of Care Code New Pt Prev Care 18-39yr(00190 Diagnoses Normal physical examination, routine Z00. Asthma J45.909 Obesity E66.9 Laboratory tests ordered as part of a complete physical exam (CPE) Z00. Additional Codes PALMER-7 Assessment Billing - PALMER-7 Assessment Tool: PALMER-7 Assessment [id number] ([id number])
[2023-11-07 09:08] VITALS: BP 128/76; PULSE 77; RESP 13; TEMP 36.4; O2SAT 99; BMI 44.8
== END 2023-11-07 09:56 | disposition home or self-care (01) ==
PROVIDERS: PCP Nurse Practitioner Family; Visit Provider Nurse Practitioner Family
DX: Z00.00 Encounter for general adult medical examination without abnormal findings (principal); J45.909 Unspecified asthma, uncomplicated; E66.9 Obesity, unspecified; Z68.42 Body mass index [BMI] 45.0-49.9, adult
CPT/HCPCS: 99385

== ENCOUNTER 2023-12-05 12:43 | Outpatient (REF) | payer OTHER, SELFPAY ==
[2023-12-05 14:19] LABS: Cholesterol 147 mg/dL (<200); HDL Cholesterol 47 mg/dL (>40); LDL Cholesterol Calculated 86 mg/dL (<100); Triglycerides 74 mg/dL (<150)
[2023-12-05 14:27] LABS: TSH reflex Free T4 0.66 uIU/mL (0.32-4.0)
== END 2023-12-05 12:44 | disposition home or self-care (01) ==
LOC: HO.LAB 12:43
PROVIDERS: PCP Nurse Practitioner Family; Visit Provider Nurse Practitioner Family
DX: Z00.00 Encounter for general adult medical examination without abnormal findings (principal); Z13.29 Encounter for screening for other suspected endocrine disorder
CPT/HCPCS: 36415; 80061; 84443

== ENCOUNTER 2024-02-18 14:18 | Outpatient (AMB) | payer OTHER, SELFPAY ==
[2024-02-18 14:25] VITALS: BP 132/84; PULSE 98; RESP 13; TEMP 36.6; O2SAT 99; BMI 45.2
--- NOTE | 2024-02-18 14:25 | MHC.PC.OV ---
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 Required: No Accompanied by: Self / Same As Patient Allergies animal dander Allergy (Verified 02/18/24 15:08) Itchy Eyes house dust Adverse Reaction (Intermediate, Verified 02/18/24 15:08) Sneezing Medication List - Last Reconciled 02/18/24 by Randa Light CNP albuterol sulfate 0.63 mg (3 mL) inhalation QID PRN albuterol sulfate 90 mcg/actuation 1 inh inhalation QID PRN cyclobenzaprine 10 mg PO Q8H fexofenadine (Staci Allergy) 180 mg PO DAILY naproxen 500 mg PO BID PRN nebulizers (AeroEclipse II Nebulizer) As directed oxymetazoline 0.05% (Afrin (oxymetazoline)) 2 sprays intranasal Q12H PRN Tobacco use date assessed: 02/18/24 Dental Screening Dental Screen Date: 02/18/24 Did you have a dental visit in the last 12 months?: Yes Did you have a dental problem in the last 6 months where you did not have access to dental care?: No Was dental information given to patient?: Patient has dentist HPI HPI Comments History of Present Illness Details 23-year-old male presents for asthma and review of recent blood work follow-up He admits to taking his medications as prescribed without adverse reactions He states that he has been making healthy dietary choices but has not been exercising He offers no complaints and denies acute symptoms at this time [facility] Medical History Sinusitis Seasonal allergies Obesity Asthma Surgical History (Updated 11/07/23 @ 09:28 by BONITA Wright) No pertinent past surgical history Family History (Updated 11/07/23 @ 09:29 by BONITA Wright) Mother High blood pressure Diabetes Thyroid disorder Father Asthma Social History Housing: Apartment Alcohol intake: current Alcohol intake frequency: holidays/special occasions only Patient Tobacco Use Status: Never used Tobacco e-Cigarette/Vaping Use: Currently Using service: No Current occupational status: employed 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 Brandon Levin, Felicia Hernández, John Oliver and colleagues, with an educational papi from [employer]. ACT Questionnaire In the past 4 weeks, how much of the time did your asthma keep you from getting as much done at work, school or at home?: None of the time During the past 4 weeks, how often have you had shortness of breath?: Not at all During the past 4 weeks, how often did your asthma symptoms wake you up at night or earlier than usual in the morning?: Not at all During the past 4 weeks, how often have you had to use your rescue inhaler or nebulizer medication?: Not at all How would you rate your asthma control during the past 4 weeks?: Well controlled ACT Interpretation: Negative Score: 24 Review of Systems Const Details: Const Denies chills, Denies fatigue, Denies fever(s), Denies headache(s) and Denies weakness ENT Denies dizziness and Denies headache(s) Card Denies chest pain, Denies lightheadedness, Denies dyspnea and Denies other (Palpitations) Resp Denies cough, Denies dyspnea, Denies wheezing and Denies other ( shortness of breath) GI Denies abdominal pain, Denies melena, Denies hematochezia, Denies change in bowel habits, Denies dyspepsia and Denies nausea Denies hematuria and Denies dysuria Musc Denies abnormal gait, Denies myalgias, Denies arthralgias, Denies numbness and Denies tingling Skin/Breast Denies rash, Denies unusual bruising and Denies wounds Neuro Denies abnormal gait, Denies dizziness, Denies headache(s), Denies memory loss, Denies numbness, Denies Sensory deficit (Neuro), Denies tingling and Denies weakness Psych Denies anxiety, Denies depression, Denies memory loss Endo Denies cold intolerance, Denies fatigue, Denies heat intolerance, Denies polydipsia and Denies polyuria Aller/Immun Denies wheezing Physical exam (Primary Care) Vital Signs: Last Vital Signs Temp 97.8 F 02/18/24 14:25 Pulse 98 02/18/24 14:25 Resp 13 02/18/24 14:25 BP 132/84 02/18/24 14:25 Pulse Ox 99 02/18/24 14:25 Oxygen Delivery Method Room Air 02/18/24 14:25 BMI result Body Mass Index 45.2 Tobacco/Smoking Status: Tobacco use Status Tobacco use date assessed 02/18/24 02/18/24 14:39 Patient Tobacco Use Status Never used Tobacco 02/18/24 14:29 e-Cigarette/Vaping Use Currently Using 02/18/24 14:29 Thrive Assessment: Date of Thrive Assessment Date Thrive assessed 02/18/24 02/18/24 14:39 Const Other: General: no acute distress and well developed Nutritional Appearance: well nourished Orientation/consciousness: patient oriented x3 HENMT Head: Yes normocephalic and Yes atraumatic Eyes General: appearance normal, both eyes and all related structures Pupils: Equal, round and reactive pupils present EOM: EOMs intact bilaterally Resp Effort & Inspection: normal respiratory effort Auscultation: clear to auscultation bilaterally Cardio Rate: regular rate Rhythm: regular rhythm Heart sounds: S1 normal heart sound present, S2 normal heart sound present, no gallops, no murmurs and no rubs GI Palpation (GI): No Abdominal aortic bruit present, Soft to palpation, nontender, No hepatosplenomegaly present and No Rebound tenderness present Auscultation: normal bowel sounds General: Yes no CVA tenderness Back/Spine/Pelvis Back: no CVA tenderness Cervical Spine: cervical ROM normal and No Cervical spine tenderness Thoracic/Lumbar Spine: thoraco-lumbar ROM normal, No pain with thoraco-lumbar ROM, No thoracic spinal tenderness and No lumbar spinal tenderness Extrem General: Yes normal to inspection, No edema and No calf tenderness Skin General: warm and dry. Normal skin color. Normal skin turgor Neuro General: patient oriented x3, gait normal and no focal neuro deficit Cranial nerves: Yes Equal, round and reactive pupils present Cognition (Neuro): normal cognition Gait exam (Neuro): Normal gait present Sensory Exam: No Sensory deficit (Neuro) Psych Appearance: grossly normal Affect: normal affect Attitude: cooperative Thought process: Normal thought process present Assessment and Plan Assessment & Plan (1) Asthma: Code(s): J45.909 - Unspecified asthma, uncomplicated Plan: Well control asthma. ACT score is 24 Continue current treatment regimen Recent labs reviewed with the patient; unrevealing findings Healthy diet and routine exercise encouraged Advised to get fasting labs and urinalysis done before his next visit Follow-up in eight months for an extended physical exam or return sooner with symptoms or concerns Verbalized understanding and agreed with treatment plan Orders: Orders Complete Blood Count Auto Diff 8 Months Z00.00 - Encounter for general adult medical examination without abnormal findings Lipid Panel 8 Months Z00.00 - Encounter for general adult medical examination without abnormal findings UA CC w/rflx Micro + Cult 8 Months Z00.00 - Encounter for general adult medical examination without abnormal findings Comprehensive Twining. Panel Fast 8 Months Z00.00 - Encounter for general adult medical examination without abnormal findings TSH reflex Free T4 8 Months Z00.00 - Encounter for general adult medical examination without abnormal findings Coding Level of Care Code Est Pt Level 3 (24012) Diagnoses Asthma J45.909
== END 2024-02-18 15:20 | disposition home or self-care (01) ==
PROVIDERS: PCP Nurse Practitioner Family; Visit Provider Nurse Practitioner Family
DX: J45.909 Unspecified asthma, uncomplicated (principal)
CPT/HCPCS: 99213

== ENCOUNTER 2024-05-05 15:05 | Outpatient (AMB) | payer OTHER, SELFPAY ==
--- NOTE | 2024-05-05 15:12 | A.OFFPC_ITS ---
Vital Signs 05/05/24 15:13 Height 5 ft 10 in Weight 325 lb BMI 46.6 BP 122/88 Blood Pressure Location Rt brachial Position Sitting Pulse 81 Pulse Source Pulse Oximeter Pulse Oximetry (%) 98 Oxygen Delivery Method Room Air Intake Visit Reasons: Facial twitching Intake Note: pt here c/o his left side on facetwitching. Measurement Department Chief Clerk Required: No Allergies animal dander Allergy (Verified 02/18/24 15:08) Itchy Eyes house dust Adverse Reaction (Intermediate, Verified 02/18/24 15:08) Sneezing Tobacco use date assessed: 02/18/24 Dental Screening Dental Screen Date: 02/18/24 Did you have a dental visit in the last 12 months?: No Did you have a dental problem in the last 6 months where you did not have access to dental care?: No HPI HPI Comments History of Present Illness Details This is a 24-year-old male with a past medical history of asthma, obesity and seasonal allergies presenting for evaluation of facial twitching. The symptoms began 1-1/2 weeks ago. The twitching is located on the left nasolabial fold. It is worse when he is holding conversations with people. He has become self-conscious about it at work because someone asked him why he was sneering. A month or 2 ago he started taking ashwaganda and a multivitamin to help with some of his stress. Since these were the only new things he stopped them when the twitching began, but the symptoms continue. He wonders if the twitching is related to stress. He started a new position at work recently. He sleeps 10:30pm to 6 am. He feels well rested. He vapes occasionally. He drinks alcohol occasionally. No illicit drug use. He has not on stimulants. Denies tick bites, rashes or redness. He would also like a referral to weight loss management for obesity. He is interested in bariatric surgery. 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 Brandon Levin, Felicia Hernández, John Oliver and colleagues, with an educational papi from [employer]. ACT Questionnaire In the past 4 weeks, how much of the time did your asthma keep you from getting as much done at work, school or at home?: None of the time During the past 4 weeks, how often have you had shortness of breath?: Not at all During the past 4 weeks, how often did your asthma symptoms wake you up at night or earlier than usual in the morning?: Not at all During the past 4 weeks, how often have you had to use your rescue inhaler or nebulizer medication?: Not at all How would you rate your asthma control during the past 4 weeks?: Completely controlled Score: 25 Review of Systems Const Details: Constitutional: No unexplained weight loss, fever, chills, fatigue or night sweats. Eyes: No vision changes, blurry vision, double vision, eye pain, eye redness, eye discharge. ENT: No hearing loss, sneezing, congestion, runny nose or sore throat. Neurologic: No headache, dizziness, syncope, unilateral weakness, ataxia, numbness or tingling in the extremities. No extremity tremors. No seizures. No facial drooping or slurred speech. Physical exam (Primary Care) Vital Signs: Last Vital Signs Pulse 81 05/05/24 15:13 BP 122/88 05/05/24 15:13 Pulse Ox 98 05/05/24 15:13 Oxygen Delivery Method Room Air 05/05/24 15:13 BMI result Body Mass Index 46.6 Tobacco/Smoking Status: Tobacco use Status Tobacco use date assessed 02/18/24 05/05/24 15:22 Patient Tobacco Use Status Never used Tobacco 05/05/24 15:22 e-Cigarette/Vaping Use Currently Using 05/05/24 15:22 Thrive Assessment: Date of Thrive Assessment Date Thrive assessed 02/18/24 05/05/24 15:22 Const Other: Constitutional: Alert, in no distress. Head: Normocephalic. Eyes: Pupils are equal, round and reactive to light. Extraocular muscles intact. Mouth/Throat: No nasal discharge. No oral lesions. Neck: Supple, Full range of motion. No lymphadenopathy. No palpable thyroid masses. Respiratory: Clear to auscultation. Cardiovascular: S1 S2 regular. No murmurs Neurologic:?Alert and oriented x 3, no focal deficits observed, CN 2-12 intact, [id number] normal, sensation equal and symmetric, strength UE and LE 5/5 bilaterally, reflexes equal and symmetric.? Normal gait.? Patient able to heel walk, toe walk and walk heel-to-toe across the floor.? No pronator drift.? Negative Romberg. Patient has occasional spasm of the left nasolabial fold. Skin: No rashes Musculoskeletal: No gross deformities. Normal range of motion. 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 Lifestyle modifications reviewed. Check TSH. Plan Patient advised that twitching is usually benign and could be related to stress, dehydration, insufficient sleep. Will check labs today for underlying causes. Increase fluids, work on stress reduction when possible, make sure you get adequate sleep. Warning signs warranting further evaluation reviewed. T/C neuroimaging and referral to neurology if symptoms persist. Follow up TBD based on results. Orders: Orders TSH reflex Free T4 Today E66.9 - Obesity, unspecified, G51.4 - Facial myokymia Basic Metabolic Panel Today G51.4 - Facial myokymia Lyme IgG/IgM w/reflex to WB Today G51.4 - Facial myokymia Complete Blood Count no Diff Today G51.4 - Facial myokymia Magnesium Today G51.4 - Facial myokymia Referrals Medical Weight Management Referral E66.01 - Morbid (severe) obesity due to excess calories Coding Level of Care Code Est Pt Level 4 (86439) Complex EM visit Add On G2211 Diagnoses Facial twitching G51.4 Morbid obesity due to excess calories E66.01
[2024-05-05 15:13] VITALS: BP 122/88; PULSE 81; O2SAT 98; BMI 46.6
== END 2024-05-05 16:11 | disposition home or self-care (01) ==
PROVIDERS: PCP Physician Assistant Medical; Visit Provider Physician Assistant Medical
DX: G51.4 Facial myokymia (principal); E66.01 Morbid (severe) obesity due to excess calories; Z68.42 Body mass index [BMI] 45.0-49.9, adult
CPT/HCPCS: 99213; G2211

== ENCOUNTER 2024-05-06 08:44 | Outpatient (REF) | payer OTHER, SELFPAY ==
[2024-05-06 11:31] LABS: Hematocrit 44.9 % (42.0-52.0); Hemoglobin 14.7 g/dl (14.0-18.0); Mean Corpuscular HGB Conc 32.7 g/dl (31.0-36.0); Mean Corpuscular Hemoglobin 28.3 pg (27.0-33.0); Mean Corpuscular Volume 86.3 fL (80.0-98.0); Mean Platelet Volume 9.8 fL (9.4-12.4); Platelet Count 292 X10*3/uL (160-400); Red Cell Distribution Width 13.5 % (11.0-16.0); White Blood Count 6.2 X10*3/uL (4.8-10.8)
[2024-05-06 12:10] LABS: Anion Gap 9 (12-20); Blood Urea Nitrogen 11 mg/dL (9-16); Calcium 9.9 mg/dL (8.4-10.2); Carbon Dioxide 28 mmol/L (22-29); Chloride 106 mmol/L (96-108); Estimated Glomerular Filt Rate > 60; Glucose Random 95 mg/dL (60-115); Magnesium 1.9 mg/dL (1.6-2.6); Potassium 4.4 mmol/L (3.3-5.1); Sodium 139 mmol/L (135-145)
[2024-05-06 12:28] LABS: TSH reflex Free T4 0.63 uIU/mL (0.32-4.0)
[2024-05-07 17:28] LABS: Lyme Abs Screen <0.90 index
== END 2024-05-06 08:45 | disposition home or self-care (01) ==
LOC: HO.WFDLDS 08:44
PROVIDERS: Visit Provider Physician Assistant Medical
DX: E66.9 Obesity, unspecified (principal); G51.4 Facial myokymia
CPT/HCPCS: 36415; 80048; 83735; 84443; 85027; 86617; 86618

== ENCOUNTER → 2024-06-19 08:43 | Outpatient (BNVA) | payer OTHER, SELFPAY | PROVIDERS: PCP Physician Assistant Medical; Visit Provider Physician Assistant Surgical ==

== ENCOUNTER 2024-07-20 08:13 | Emergency (ER) | payer OTHER, SELFPAY ==
--- NOTE | ~2024-07-20 | CT_ITS ---
EXAMINATION: CT ABDOMEN AND PELVIS WITH CONTRAST CLINICAL INFORMATION: Lower abdominal pain status post trauma COMPARISON: None available. TECHNIQUE: Multidetector volumetric images were obtained from the superior aspect of the liver through the pubic symphysis following administration 85 mL of Omnipaque 350 intravenous contrast. Sagittal and coronal reformatted images were obtained on the technologist's workstation. Oral contrast: No This CT examination was performed using dose optimization techniques as appropriate, variously including the following: *Automated exposure control *Adjustment of mA and/or kV according to patient size (this includes techniques or standardized protocols for targeted exams where dose is matched to indication/reason for exam; i.e. extremities or head) *Use of iterative reconstruction technique DLP: 1230 mGy-cm FINDINGS: LUNG BASES: Bibasilar atelectasis. ABDOMINAL AND PELVIC WALL: Tiny fat-containing umbilical hernia. LIVER AND BILIARY TREE: Few scattered subcentimeter hepatic cysts. Calcified right hepatic lobe granuloma. GALLBLADDER: Unremarkable. PANCREAS: Unremarkable. SPLEEN: Unremarkable. ADRENAL GLANDS: Unremarkable. KIDNEYS AND URETERS: Unremarkable. GASTROINTESTINAL TRACT: Colonic diverticulosis without evidence of diverticulitis. Circumscribed appearance of mesenteric fat with some soft tissue abutting the descending colon, 3:66 measuring 0.9 cm which may reflect a focus of prior fat necrosis. Appendix is normal in caliber. Adjacent to the tip of the appendix is circumscribed appearance of the mesenteric fat measuring 2.4 cm with some surrounding inflammatory stranding suggestive of epiploic appendagitis. VASCULAR: Unremarkable. LYMPH NODES/PERITONEUM: No lymphadenopathy. FREE FLUID: None. BLADDER: There is mild asymmetric thickening of the anterolateral bladder wall. PELVIC VISCERA: Unremarkable. OSSEOUS STRUCTURES: Unremarkable. CT/CT abdomen pelvis w IV con IMPRESSION: 1. Adjacent to the tip of the appendix is circumscribed appearance of the mesenteric fat measuring 2.4 cm with some surrounding inflammatory stranding suggestive of epiploic appendagitis. The appendix itself is normal in caliber. 2. Circumscribed appearance of mesenteric fat with some soft tissue abutting the descending colon measuring 0.9 cm which may reflect a focus of prior fat necrosis. 3. There is mild asymmetric thickening of the anterolateral bladder wall. Recommend correlation with urinalysis and any symptoms of cystitis, and given asymmetry consider urologic evaluation to ensure no underlying lesion. Electronically signed by: Ada Agarwal MD 07/20/2024 10:53 AM EDT RP
[2024-07-20 08:17] VITALS: BP 140/83; PULSE 75; RESP 18; TEMP 37.1; O2SAT 100; BMI 46.0
[2024-07-20 08:30] LABS: MANUAL DIFF FLAG NO
[2024-07-20 08:31] LABS: Basophils Absolute Auto 0.1 X10*3/uL (0.0-0.2); Basophils Percent Auto 0.7 % (0-2); Eosinophils Absolute Auto 0.1 X10*3/uL (0.0-0.4); Hematocrit 45.2 % (42.0-52.0); Hemoglobin 14.7 g/dl (14.0-18.0); Imm Gran Abs Auto 0.02 X10*3/uL (0.00-0.03); Imm Gran Pct Auto 0.3 % (0.0-0.4); Lymphocytes Absolute Auto 2.7 X10*3/uL (1.2-4.9); Lymphocytes Percent Auto 36.1 % (20-40); Mean Corpuscular HGB Conc 32.5 g/dl (31.0-36.0); Mean Corpuscular Hemoglobin 28.4 pg (27.0-33.0); Mean Corpuscular Volume 87.4 fL (80.0-98.0); Mean Platelet Volume 9.2 fL (9.4-12.4); Monocytes Absolute Auto 0.7 X10*3/uL (0.1-1.2); Monocytes Percent Auto 9.8 % (2-11); Neutrophils Absolute Auto 3.8 x10*3/uL (2.0-8.3); Neutrophils Percent Auto 52.1 % (45-73); Platelet Count 265 X10*3/uL (160-400); Red Blood Count 5.17 X10*6/uL (4.60-5.80); Red Cell Distribution Width 13.2 % (11.0-16.0); White Blood Count 7.3 X10*3/uL (4.8-10.8)
[2024-07-20 08:46] LABS: Alanine Aminotransferase 17 U/L (0-40); Albumin Level 3.7 g/dL (3.5-5.0); Alkaline Phosphatase 70 U/L (39-117); Anion Gap 9 (12-20); Aspartate Amino Transferase 20 U/L (5-37); Bilirubin Total 0.7 mg/dL (0.0-1.0); Blood Urea Nitrogen 11 mg/dL (9-16); Calcium 9.4 mg/dL (8.4-10.2); Carbon Dioxide 27 mmol/L (22-29); Chloride 107 mmol/L (96-108); Creatinine Clr Calc Pharmacy 181.3; Estimated Glomerular Filt Rate > 60; Glucose Random 100 mg/dL (60-115); Potassium 4.3 mmol/L (3.3-5.1); Sodium 139 mmol/L (135-145); Total Protein 7.3 g/dL (6.5-8.0)
[2024-07-20 09:06] VITALS: BP 133/65; PULSE 68; RESP 17; TEMP 37.2; O2SAT 98
[2024-07-20] MEDS: 0.9 % Sodium Chloride 1,000 ML 999 ML IV (09:40)
--- NOTE | 2024-07-20 09:49 | PC.NURSE ---
Pt is a 24 y/o male who presents from home for evaluation of abd pain. Pain is located in the midddle/lower portion, described as dull but constant, and is rated a 1/10. Pt reports pain started after moving some furniture with a family member and falling into the edge of a refridgerator. Incident occured approximately 1 week ago and pain has been increasing over time. Pt reports trying OTC meds at home to help with the pain without relief, has tried motrin and tylenol. Pain is increased with a full bladder and palpation to the area. No blood noted in urine or stool. No fever and no nausea/vomiting. Food and fluid intake with WNL for pt. Denies any other symptoms or concerns at this time.
[2024-07-20 09:51] LABS: Appearance Urine Clear; Color Urine Yellow; Glucose Urine UA Negative (Negative); Leukocyte Esterase Urine Negative (Negative); Nitrite Urine Negative (Negative); PH 5.5 (5.0-9.0); Urine Blood Negative (Negative); Urine Ketones Negative (Negative); Urine Protein Negative (Neg-Trace)
[2024-07-20 09:54] LABS: Lipase 14 U/L (8-78); Magnesium 2.1 mg/dL (1.6-2.6)
--- NOTE | 2024-07-20 09:54 | PC.NURSE ---
20G IV access established in right AC, tolerated well with no verbalized pain and no signs of infiltration.
[2024-07-20 09:56] LABS: Bacteria Urine None Seen (None Seen); Hyaline Casts Urine 0-2 /LPF (0-2); RBC Urine 0-2 /HPF (0-2); Squamous Epithelial Cell Urine 0-2 /HPF (0-2); WBC Urine 0-5 /HPF (0-5)
--- NOTE | 2024-07-20 10:05 | ED_ITS ---
HPI - Abdominal Pain General Chief Complaint: Abdominal Pain Stated Complaint: LRQ pain Time Seen by Provider: 07/20/24 09:12 Source: patient, RN notes reviewed and old records reviewed Mode of arrival: ambulatory History of Present Illness ED Provider: Daniela Boone PA-C HPI narrative: 24-year-old male with a past medical history of asthma, obesity, presenting to the ED complaining of RLQ/lower abdominal pain worsening over the past week S/P caring heavy AC unit up the stairs, tripping and AC unit hitting him directly in abdomen. Reports pain worse with movement and when 1st wakes up in the morning. Denies fever, chills, nausea, vomiting, diarrhea/constipation. Has been taking ibuprofen at home with relief. Denies dysuria/hematuria Related Data Home Medications ?Medication ?Instructions ?Recorded ?Confirmed fexofenadine 180 mg tablet 180 mg PO DAILY 11/07/23 06/19/24 (Staci Allergy) oxymetazoline 0.05 % nasal spray 2 spray intranasal Q12H PRN 11/07/23 06/19/24 (Afrin (oxymetazoline)) multivitamin 1 tab PO DAILY 06/19/24 06/19/24 Previous Rx's ?Medication ?Instructions ?Recorded albuterol sulfate 0.63 mg/3 mL 0.63 mg (3 mL) inhalation QID PRN 03/08/22 solution for nebulization shortness of breath or wheezing #75 mL albuterol sulfate 90 mcg/actuation 1 inh inhalation QID PRN shortness 03/08/22 aerosol inhaler of breath or wheezing #8.5 grams nebulizers (AeroEclipse II #1 ea 03/08/22 Nebulizer) ibuprofen 600 mg tablet 600 mg PO Q6-8H PRN fever or pain 07/20/24 7 days #20 tabs Allergies Allergy/AdvReac Type Severity Reaction Status Date / Time lactose Allergy Mild Flatulence Verified 07/20/24 08:17 animal dander Allergy Itchy Eyes Verified 07/20/24 08:17 house dust AdvReac Intermediate Sneezing Verified 07/20/24 08:17 Review of Systems Review of Systems Yes all other systems are reviewed and are negative Constitutional: Reports as per HPI [facility] Past Medical History Attestation statement: The following information was validated with the patient. Source: old records reviewed Medical History Sinusitis Seasonal allergies Obesity Asthma Surgical History H/O wisdom tooth extraction No pertinent past surgical history Family History Family History Mother High blood pressure Diabetes Thyroid disorder Father Asthma Social History Social History Housing: Apartment Alcohol intake: current Alcohol intake frequency: holidays/special occasions only Patient Tobacco Use Status: Never used Tobacco e-Cigarette/Vaping Use: Currently Using Advance Directives: No Advance Directives Information Provided: Yes service: No Current occupational status: employed 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 [employer] Cognitive needs: No Hearing needs: No Vision needs: No Physical Exam ED Vital Signs: Vital Signs - 24 hr 07/20/24 08:17 07/20/24 09:06 07/20/24 12:00 Temperature 98.7 F 98.9 F 98.8 F Pulse Rate 75 68 59 Respiratory Rate 18 17 17 Blood Pressure 140/83 H 133/65 135/73 Pulse Oximetry 100 98 100 Oxygen Delivery Method Room Air Room Air Room Air 07/20/24 13:07 Temperature 98.8 F Pulse Rate 59 Respiratory Rate 17 Blood Pressure 135/73 Pulse Oximetry 100 Oxygen Delivery Method Room Air BMI result Body Mass Index 46.0 Const General: cooperative, healthy appearing and no acute distress Orientation/consciousness: patient oriented x3 Limitations: no limitations HENMT Head: Yes normal to inspection and Yes atraumatic Ears: hearing grossly normal bilaterally General nose exam: Normal external nose present Face and sinus: Yes normal facial exam Eyes General: appearance normal, both eyes and all related structures EOM: EOMs intact bilaterally Neck Neck: Yes normal visual inspection and Yes no meningeal signs Resp Effort & Inspection: normal respiratory effort and no respiratory distress Auscultation: clear to auscultation bilaterally Cardio Rate: regular rate Heart sounds: S1 normal heart sound present and S2 normal heart sound present GI Other: No ecchymosis/erythema or rash Inspection: Yes normal to inspection Palpation (GI): Soft to palpation, Tenderness to palpation present (GI) (Lower abdomen) in the RLQ; with no rebound tenderness, no guarding and not rigid General: Yes no CVA tenderness Back/Spine/Pelvis Back: no CVA tenderness Skin Rashes: no rashes Wounds: no wounds Neuro General: patient oriented x3, tone normal and no meningeal signs Cranial nerves: Yes CN's II-XII intact bilaterally Gait exam (Neuro): Normal gait present Extrem General: Yes normal to inspection Course Course Course Narrative: -1141--labs reassuring. UA negative CT abdomen pelvis w IV con IMPRESSION: 1. Adjacent to the tip of the appendix is circumscribed appearance of the mesenteric fat measuring 2.4 cm with some surrounding inflammatory stranding suggestive of epiploic appendagitis. The appendix itself is normal in caliber. 2. Circumscribed appearance of mesenteric fat with some soft tissue abutting the descending colon measuring 0.9 cm which may reflect a focus of prior fat necrosis. 3. There is mild asymmetric thickening of the anterolateral bladder wall. Recommend correlation with urinalysis and any symptoms of cystitis, and given asymmetry consider urologic evaluation to ensure no underlying lesion. > this is likely from patients abdominal trauma, but will refer to urology > initiate patient on NSAIDs with general surgery follow-up as needed. Results discussed with patient including worrisome signs and symptoms and strict return precautions, and when to return to the emergency department. They verbalized understanding and feel safe for discharge at this time. Medical Decision Making Medical Decision Making [facility] Narrative: 24-year-old male with a past medical history of asthma, obesity, presenting to the ED complaining of RLQ/lower abdominal pain worsening over the past week S/P caring heavy AC unit up the stairs, tripping and AC unit hitting him directly in abdomen. On exam vital signs stable, NAD, nontoxic appearing, abdomen soft with lower tenderness to palpation, no rebound or guarding, no evidence of trauma. No CVAT. Concern for abdominal contusion vs colitis vs diverticulitis vs appendicitis vs hernia. Low suspicion for incarcerated/strangulated hernia, testicular torsion, GI bleed, pancreatitis or cholecystitis Plan: Labs, UA, CT, pain control, IVF Please refer to course for remaining clinical decision making, interpretation of labs/imaging results, and discussions with consultants and/or family members. Differential Diagnosis Differential Diagnoses: The differential diagnosis associated with the presentation includes As above Admission/Observation Consideration of admission/observation: Escalation of care including admission/observation considered Lab Data MDM Lab Attestation statement: I reviewed the patient's lab results. 07/20/24 08:25 07/20/24 08:25 Labs: Lab Results 07/20/24 07/20/24 Range/Units 08:25 09:36 WBC 7.3 (4.8-10.8) X10*3/uL RBC 5.17 (4.60-5.80) X10*6/uL Hgb 14.7 (14.0-18.0) g/dl Hct 45.2 (42.0-52.0) % MCV 87.4 (80.0-98.0) fL MCH 28.4 (27.0-33.0) pg MCHC 32.5 (31.0-36.0) g/dl RDW 13.2 (11.0-16.0) % Plt Count 265 (160-400) X10*3/uL MPV 9.2 L (9.4-12.4) fL Immature Gran % (Auto) 0.3 (0.0-0.4) % Neut % (Auto) 52.1 (45-73) % Lymph % (Auto) 36.1 (20-40) % [place] % (Auto) 9.8 (2-11) % Eos % (Auto) 1.0 (0-4) % Baso % (Auto) 0.7 (0-2) % Lymph # (Auto) 2.7 (1.2-4.9) X10*3/uL [place] # (Auto) 0.7 (0.1-1.2) X10*3/uL Eos # (Auto) 0.1 (0.0-0.4) X10*3/uL Baso # (Auto) 0.1 (0.0-0.2) X10*3/uL Abs Immat Gran (auto) 0.02 (0.00-0.03) X10*3/uL Absolute Neuts (auto) 3.8 (2.0-8.3) x10*3/uL Absolute Nucleated RBC 0.000 (0.0-0.012) X10*3/uL Nucleated RBC % (auto) 0.0 (0.0-0.2) /100WBC Sodium 139 (135-145) mmol/L Potassium 4.3 (3.3-5.1) mmol/L Chloride 107 (96-108) mmol/L Carbon Dioxide 27 (22-29) mmol/L Anion Gap 9 L (12-20) BUN 11 (9-16) mg/dL Creatinine 0.89 (0.5-1.4) mg/dL Estim Creat Clear Calc 181.3 Estimated GFR > 60 Random Glucose 100 (60-115) mg/dL Calcium 9.4 (8.4-10.2) mg/dL Magnesium 2.1 (1.6-2.6) mg/dL Total Bilirubin 0.7 (0.0-1.0) mg/dL AST 20 (5-37) U/L ALT 17 (0-40) U/L Alkaline Phosphatase 70 (39-117) U/L Total Protein 7.3 (6.5-8.0) g/dL Albumin 3.7 (3.5-5.0) g/dL Lipase 14 (8-78) U/L Urine Color Yellow Urine Appearance Clear Urine pH 5.5 (5.0-9.0) Ur Specific [place] 1.020 (1.005-1.025) Urine Protein Negative (Neg-Trace) mg/dL Urine Glucose (UA) Negative (Negative) mg/dL Urine Ketones Negative (Negative) mg/dL Urine Blood Negative (Negative) Urine Nitrite Negative (Negative) Ur Leukocyte Esterase Negative (Negative) Urine RBC 0-2 (0-2) /HPF Urine WBC 0-5 (0-5) /HPF Ur Squamous Epith Cells 0-2 (0-2) /HPF Urine Bacteria None Seen (None Seen) Hyaline Casts 0-2 (0-2) /LPF Independent Interpretation I performed an independent interpretation of an: CT Scan Radiology Impression Discussion of test interpretation with radiology: I have reviewed the radiologist's reading. External Record Review External record reviewed: Inpatient record, Office record, Outpatient record, Prior outpatient labs, Prior outpatient radiology, Primary care record and Outside ED record Tests considered The following testing was considered but not selected: As above Prescription Management I considered prescription management with: Pain Medication Medications Administered Discontinued Medications Generic Name Dose Route Start Last Admin Trade Name Freq PRN Reason Stop Dose Admin Sodium Chloride 1,000 mls @ 999 mls/hr 07/20/24 09:30 07/20/24 13:07 Ns IV 07/20/24 10:30 Infused .Q1H1M BRIT Infusion Iohexol 100 ml 07/20/24 10:09 07/20/24 10:10 Iohexol 350 Mg/Ml 100 Ml Infus..Btl IV 07/20/24 10:10 85 ml ONCE ONE Administration Ketorolac Tromethamine 15 mg 07/20/24 09:22 07/20/24 10:19 Ketorolac Tromethamine 15 Mg/Ml Vial IVPUSH 07/20/24 09:23 15 mg ONCE ONE Administration Discharge Plan Discharge Clinical Impression: Epiploic appendagitis, Bladder wall thickening Patient Disposition: Home, Self-Care Additional Instructions: Your CT scans shows epiploic appendagitis, this is inflammation > treatment is NSAIDs, please take ibuprofen 600 mg every 6 hours for the next 10 days. Please follow-up with her doctor. Make sure you are taking food with ibuprofen. If symptoms persist or worsen, pain becomes unbearable, you develop fever, persistent nausea or vomiting return to the emergency department Your CT scan also shows bladder wall thickening, we suspect this is from the AC unit however please follow-up with urology Prescriptions: New ibuprofen 600 mg tablet 600 mg PO Q6-8H PRN (Reason: fever or pain) 7 Days Qty: 20 0RF No Action albuterol sulfate 90 mcg/actuation HFA aerosol inhaler 1 inh inhalation QID PRN (Reason: shortness of breath or wheezing) Qty: 8.5 0RF (DME) AeroEclipse II Nebulizer Misc See Rx Instructions .ROUTE .MEDSUPPLY Qty: 1 0RF Rx Instructions: As directed albuterol sulfate 0.63 mg/3 mL solution for nebulization 0.63 mg inhalation QID PRN (Reason: shortness of breath or wheezing) Qty: 75 0RF fexofenadine [Staci Allergy] 180 mg tablet 180 mg PO DAILY oxymetazoline [Afrin (oxymetazoline)] 0.05 % spray,non-aerosol 2 spray intranasal Q12H PRN multivitamin Tablet 1 tab PO DAILY Referrals: [facility] General Surgeons [Provider Group] (as needed) [facility] Urology Services [Provider Group] - 1 week Alejandra Odell PA [Primary Care Provider] - 1 week Interventions: ED Discharge Assessment Last Done: 07/20/24 13:07 Discharge Date/Time: 07/20/24 12:30 Print Language: Irish
[2024-07-20] MEDS: iohexoL 350 MG/ML 100 ML INFUS..BTL IV (10:10)
[2024-07-20] MEDS: Ketorolac Tromethamine 15 MG/ML VIAL IVPUSH (10:19)
[2024-07-20 12:00] VITALS: BP 135/73; PULSE 59; RESP 17; TEMP 37.1; O2SAT 100
[2024-07-20 13:07] VITALS: BP 135/73; PULSE 59; RESP 17; TEMP 37.1; O2SAT 100
== END 2024-07-20 12:30 | disposition home or self-care (01) ==
PROVIDERS: Physician Assistant; Emergency Provider Emergency Medicine; PCP Physician Assistant Medical
DX: K63.89 Other specified diseases of intestine (principal); R10.31 Right lower quadrant pain; Z91.81 History of falling
CPT/HCPCS: 36415; 74177; 80053; 81001; 83690; 83735; 85025; 96361; 96374; 99284; J1885; Q9967

== ENCOUNTER 2024-07-27 07:57 | Outpatient (AMB) | payer OTHER, SELFPAY ==
--- NOTE | 2024-07-27 08:41 | MHC.OFFVISWM ---
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 BMI 46.0 Allergies lactose Allergy (Mild, Verified 07/27/24 08:41) Flatulence animal dander Allergy (Verified 07/27/24 08:41) Itchy Eyes house dust Adverse Reaction (Intermediate, Verified 07/27/24 08:41) Sneezing Medication List - Last Reconciled 07/27/24 by Ryan Schmidt MD albuterol sulfate 0.63 mg (3 mL) inhalation QID PRN albuterol sulfate 90 mcg/actuation 1 inh inhalation QID PRN fexofenadine (Staci Allergy) 180 mg PO DAILY multivitamin 1 tab PO DAILY nebulizers (AeroEclipse II Nebulizer) As directed oxymetazoline 0.05% (Afrin (oxymetazoline)) 2 sprays intranasal Q12H PRN HPI HPI TV [employer]IED CROPS II [employer] SWL BMI 46.0: Details: Start time: 8.30am, End time: 9.07am ?I spent 32 minutes speaking with the patient on the phone plus an additional 5 minutes reviewing and updating records for a total of 37 minutes HPI Comments Details: Previous weight loss efforts: exercise and self diets Wakes up: 6am, Sleeps: 10.30pm Breakfast: 9am (cereal sometimes) Lunch: 2pm (pork chops) Dinner: 7pm (rice, beans and chicken) Snacks: none Exercise: Gym membership Fluids: Coffee: none, tea: 3/wk, soda: Sprite: 2 cups/day. 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 Cognitive needs: No Hearing needs: No Vision needs: No Telehealth Telehealth Telehealth Platform: Telephone Location of provider rendering services: practice address Location of patient: address on file Patient Identification confirmed using: Name, : Yes Telehealth method: voice only Patient verbally consented to treatment: Yes Patient verbally consented to billing insurance company: Yes Patient informed of any privacy concerns related to visit: Yes Minutes spent on Phone/Video with Pt.: 37 Assessment & Plan Assessment & Plan (1) Morbid obesity: Code(s): E66.01 - Morbid (severe) obesity due to excess calories Category: Medical Plan: 1.? Plan for lap sleeve gastrectomy. If diaphragmatic or ventral hernias are present at time of surgery, these will be repaired laparoscopically as well. Risks and complications were discussed in detail including possible conversion to an open procedure, anastomotic leak, bleeding requiring transfusion, small bowel obstruction, , DVT and pulmonary embolism, cardiac, or pulmonary complications, as director long term care complications such as anastomotic ulcer, insufficient weight loss and vitamin deficiencies. I emphasized the importance of close follow-up, adherence to instructions and good communication. 2. You will receive a link of our software maribel to generate an individualized nutritional and exercise plan specific for you. Please send me a screenshot of the plans you will generate Meal to include lean meat (beef, fish, pork, turkey, chicken), or south [place] yogurt, or egg whites, or beans with a salad with olive oil and fruits (berries, pears, apples, kiwi). Avoid salt, breads, potatoes, rice, pasta, desserts. ?3. If you choose shakes, each shake would be drunk slowly, like coffee in a period of 2 hours. ?4. If you choose bars, cut each bar in 4 pieces and eat each piece in 30min ?to make each bar last 2 hours. ?5. I emphasized the importance of measuring accurately the food portion and measure it when serving the food in plate ?6. The meal portions include a specific number of forks of meat and salad. You always eat the meat portion but you can replace up to half of salad/vegetables portion with rice, potatoes or pasta, or a fruit ?if you like. The less you do it the better weight loss will be. ?7. One full-size fork is what it can be scooped on the fork without falling aside and not what can be bit with the fork. Use regular forks like those you find in a typical restaurant. ?8.? Please send me weight measurements as soon as possible and then once a week. Always include your diet and exercise plan. 9. The best choice would be to purchase a stationary bike, elliptical or treadmill at home that can track calories. Let me know if you do so I can give you an exercise plan. ?10.?Goal is to lose at least 1.5-2lbs per week ?11. Goal to lose 10% of your weight before surgery, which is about 32lbs. Ultimate weight goal: 288lbs before surgery 12. Please follow the diet plan exactly without any change. If you don't like something about the plan or you feel hungry you need to communicate with me so I can help you revise the plan. You should not change the plan yourself. 13. To be scheduled for EGD due to assess the anatomy of the stomach. The possibility of biopsies was discussed. Patient needs to avoid use of NSAIDs and aspirin for 1 week prior to EGD. Risks of perforation and bleeding was discussed with the patient. This will be an outpatient procedure with IV sedation. Orders: Orders Insulin Today E66.01 - Morbid (severe) obesity due to excess calories, J45.909 - Unspecified asthma, uncomplicated Lipid Panel Today E66.01 - Morbid (severe) obesity due to excess calories, J45.909 - Unspecified asthma, uncomplicated Vitamin B1 Today E66.01 - Morbid (severe) obesity due to excess calories, J45.909 - Unspecified asthma, uncomplicated Vitamin A Today E66.01 - Morbid (severe) obesity due to excess calories, J45.909 - Unspecified asthma, uncomplicated TSH reflex Free T4 Today E66.01 - Morbid (severe) obesity due to excess calories, J45.909 - Unspecified asthma, uncomplicated Hemoglobin A1c Today E66.01 - Morbid (severe) obesity due to excess calories, J45.909 - Unspecified asthma, uncomplicated H Pylori Breath Test Today E66.01 - Morbid (severe) obesity due to excess calories, J45.909 - Unspecified asthma, uncomplicated Complete Blood Count Auto Diff Today E66.01 - Morbid (severe) obesity due to excess calories, J45.909 - Unspecified asthma, uncomplicated IRON PROFILE Today E66.01 - Morbid (severe) obesity due to excess calories, J45.909 - Unspecified asthma, uncomplicated Comprehensive Met. Panel Today E66.01 - Morbid (severe) obesity due to excess calories, J45.909 - Unspecified asthma, uncomplicated Vitamin B12 and Folate Today E66.01 - Morbid (severe) obesity due to excess calories, J45.909 - Unspecified asthma, uncomplicated Zinc Today E66.01 - Morbid (severe) obesity due to excess calories, J45.909 - Unspecified asthma, uncomplicated C Reactive Protein Today E66.01 - Morbid (severe) obesity due to excess calories, J45.909 - Unspecified asthma, uncomplicated Ferritin Today E66.01 - Morbid (severe) obesity due to excess calories, J45.909 - Unspecified asthma, uncomplicated Vitamin D 25-OH Total Today E66.01 - Morbid (severe) obesity due to excess calories, J45.909 - Unspecified asthma, uncomplicated US abdomen comp w elastography Today E66.01 - Morbid (severe) obesity due to excess calories, J45.909 - Unspecified asthma, uncomplicated XR chest 2V Today E66.01 - Morbid (severe) obesity due to excess calories, J45.909 - Unspecified asthma, uncomplicated ECG 12 lead EKG Today E66.01 - Morbid (severe) obesity due to excess calories, J45.909 - Unspecified asthma, uncomplicated FL upper GI w air Today E66.01 - Morbid (severe) obesity due to excess calories, J45.909 - Unspecified asthma, uncomplicated Referrals Behavioral Health Referral E66.01 - Morbid (severe) obesity due to excess calories, J45.909 - Unspecified asthma, uncomplicated Nutrition/Dietitian Referral E66.01 - Morbid (severe) obesity due to excess calories, J45.909 - Unspecified asthma, uncomplicated
[2024-07-27 08:52] VITALS: BMI 46.0
== END 2024-07-27 09:08 | disposition home or self-care (01) ==
LOC: HO.HBS 07:57
PROVIDERS: PCP Physician Assistant Medical; Visit Provider Surgery
DX: E66.01 Morbid (severe) obesity due to excess calories (principal); Z68.42 Body mass index [BMI] 45.0-49.9, adult
CPT/HCPCS: 99204

== ENCOUNTER → 2024-07-27 07:57 | Outpatient (BNVA) | payer OTHER, SELFPAY | PROVIDERS: PCP Physician Assistant Medical; Visit Provider Surgery ==

== ENCOUNTER 2024-08-14 07:36 | Outpatient (REF) | payer OTHER, SELFPAY ==
--- NOTE | ~2024-08-14 | US_ITS ---
EXAMINATION: US COMPLETE ABDOMEN WITH LIVER ELASTOGRAPHY CLINICAL INFORMATION: Obesity COMPARISON: CT abdomen/pelvis 07/20/2024. TECHNIQUE: Real-time imaging of the abdominal viscera. Noninvasive ultrasound liver fibrosis assessment is performed using Jabari ElastPQ point quantification shear wave elastography (pSWE) with a C5-2 MHz transducer. Multiple elastography samples are obtained. FINDINGS: PANCREAS: The visualized portions of the pancreas are unremarkable but a large portion of the gland is obscured by bowel gas. ABDOMINAL AORTA: The proximal, middle, and distal aortic segments are normal in caliber. INFERIOR VENA CAVA: Visualized portions are normal. LIVER: The liver demonstrates normal size and contour but with increased echogenicity suggesting steatosis. No ntrahepatic biliary duct dilatation. There is a 1.0 x 0.7 x 0.9 cm brightly echogenic mass seen adjacent to the gallbladder with imaging characteristics of a benign hemangioma. The right lobe measures 15.3 cm in length. The left lobe measures 8.7 cm in length. Portal flow is towards the liver (hepatopetal). Shear wave liver elastography median stiffness is 1.4 m/s (reference: normal median stiffness is 1.3 m/s or less). IQR/median stiffness to assess sampling precision is 0.14 (reference: good quality data set is IQR/median stiffness of 0.15 or less). GALLBLADDER: The gallbladder is physiologically distended without evidence of stones, sludge, polyps, wall thickening or pericholecystic fluid. COMMON BILE DUCT: Could not be seen. RIGHT KIDNEY: No hydronephrosis. No renal calculi or focal parenchymal lesions. The kidney measures 11.4 cm in maximum dimension. LEFT KIDNEY: No hydronephrosis. No renal calculi or focal parenchymal lesions. The kidney measures 11.3 cm in maximum dimension. SPLEEN: Normal. The spleen measures 10.9 cm in maximum dimension. FREE FLUID: None. US/US abdomen comp w elastography IMPRESSION: 1. Echogenic liver consistent with hepatic steatosis. 2. Echogenic liver mass consistent with a hemangioma. If absolute certainty of diagnosis is needed, MRI would be the exam of choice. 3. Liver elastography: In the absence of other known clinical signs, measurements rule out compensated advanced chronic liver disease. If there are known clinical signs, further testing may be needed for confirmation. REFERENCE: Society of Radiologists in Ultrasound Liver Stiffness Thresholds (2020): LIVER STIFFNESS THRESHOLDS: *Liver Stiffness equal or less than 1.3 m/s: High probability of being normal. *Liver Stiffness less than 1.7 m/s: In the absence of other known clinical signs, rules out compensated advanced chronic liver disease. *Liver Stiffness 1.7-2.1 m/s: Suggestive of compensated advanced chronic liver disease but need further test for confirmation. *Liver Stiffness over 2.1 m/s: Rules in compensated advanced chronic liver disease. *Liver Stiffness over 2.4 m/s: Suggestive of clinically significant portal hypertension. QUALITY OF DATA SET: *IQR/Median value equal or less than 0.15 implies a quality data set. *IQR/Median value over 0.15 implies a poor quality data set. SIGNIFICANT CHANGE FROM PRIOR EXAM: Significant change if liver stiffness measurement is 10% or greater from prior exam. OTHER CONSIDERATIONS: The stage of liver fibrosis may be overestimated in the setting of acute hepatitis, liver inflammation, elevated liver function tests, hepatic vascular congestion, obstructive cholestasis, non-fasting state, and infiltrative diseases such as amyloidosis and lymphoma. In some patients with NAFLD, the liver stiffness thresholds for compensated advanced chronic liver disease may be lower. In causes other than viral hepatitis and NAFLD, liver stiffness thresholds are not well established. Electronically signed by: Holland Adkins MD 10/01/2024 01:45 PM [facility]
--- NOTE | ~2024-08-14 | XR_ITS ---
EXAMINATION: XR CHEST 2 VIEW CLINICAL INFORMATION: Morbid obesity COMPARISON: 03/08/2022 TECHNIQUE: PA and lateral views of the chest obtained. FINDINGS: The lungs are clear. There are no pleural effusions. The cardiomediastinal silhouette is normal. XR/XR chest 2V IMPRESSION: No acute cardiopulmonary disease. Electronically signed by: Thomas Shane MD 08/30/2024 06:58 PM EDT RP
--- NOTE | 2024-08-14 08:33 | ECG_ITS ---
Test Reason : morbid obesity Blood Pressure : / mmHG Vent. Rate : 057 BPM Atrial Rate : 057 BPM P-R Int : 166 ms QRS Dur : 096 ms QT Int : 400 ms P-R-T Axes : 022 008 005 degrees QTc Int : 389 ms Sinus bradycardia with marked sinus arrhythmia Otherwise normal ECG No previous ECGs available Referred By: Ryan Schmidt Electronically Signed By:KENRICK GREGORY
[2024-08-14 08:43] LABS: MANUAL DIFF FLAG NO
[2024-08-14 09:04] LABS: Basophils Absolute Auto 0.1 X10*3/uL (0.0-0.2); Basophils Percent Auto 0.9 % (0-2); Eosinophils Absolute Auto 0.1 X10*3/uL (0.0-0.4); Eosinophils Percent Auto 0.9 % (0-4); Hematocrit 45.2 % (42.0-52.0); Imm Gran Abs Auto 0.02 X10*3/uL (0.00-0.03); Imm Gran Pct Auto 0.4 % (0.0-0.4); Lymphocytes Absolute Auto 2.3 X10*3/uL (1.2-4.9); Lymphocytes Percent Auto 42.5 % (20-40); Mean Corpuscular HGB Conc 33.2 g/dl (31.0-36.0); Mean Corpuscular Hemoglobin 28.5 pg (27.0-33.0); Mean Corpuscular Volume 85.9 fL (80.0-98.0); Mean Platelet Volume 9.5 fL (9.4-12.4); Monocytes Absolute Auto 0.6 X10*3/uL (0.1-1.2); Monocytes Percent Auto 11.1 % (2-11); Neutrophils Absolute Auto 2.4 x10*3/uL (2.0-8.3); Neutrophils Percent Auto 44.2 % (45-73); Platelet Count 274 X10*3/uL (160-400); Red Blood Count 5.26 X10*6/uL (4.60-5.80); White Blood Count 5.5 X10*3/uL (4.8-10.8)
[2024-08-14 09:32] LABS: Estimated Average Glucose 97 mg/dL; Hemoglobin A1C 115.5048 umol/L; Total Hemoglobin (HGBA1C) 3675.0295 umol/L
[2024-08-14 09:38] LABS: Alanine Aminotransferase 20 U/L (0-40); Albumin Level 4.1 g/dL (3.5-5.0); Alkaline Phosphatase 68 U/L (39-117); Anion Gap 9 (12-20); Aspartate Amino Transferase 24 U/L (5-37); Bilirubin Total 0.8 mg/dL (0.0-1.0); Blood Urea Nitrogen 12 mg/dL (9-16); C Reactive Protein 0.37 mg/dL (< or = 0.50); Calcium 9.7 mg/dL (8.4-10.2); Carbon Dioxide 28 mmol/L (22-29); Chloride 105 mmol/L (96-108); Cholesterol 148 mg/dL (<200); Estimated Glomerular Filt Rate > 60; Glucose Random 89 mg/dL (60-115); HDL Cholesterol 40 mg/dL (>40); Iron 86 mcg/dL (45-160); LDL Cholesterol Calculated 94 mg/dL (<100); Percent Iron Saturation 29 % (15-50); Potassium 4.2 mmol/L (3.3-5.1); Sodium 138 mmol/L (135-145); Total Iron Binding Capacity 298 mcg/dL (228-428); Total Protein 8.1 g/dL (6.5-8.0); Triglycerides 72 mg/dL (<150); Unsaturated Iron Binding 212 ug/dL
[2024-08-14 10:03] LABS: Folate 13.6 ng/mL (> or = 4.0); Vitamin B12 604 pg/mL (200-900)
[2024-08-14 10:06] LABS: Ferritin 250 ng/mL (20-250); TSH reflex Free T4 0.45 uIU/mL (0.32-4.0); Vitamin D 25-OH Total 14.1 ng/mL (>30)
[2024-08-14 11:00] LABS: Insulin 14 uU/mL (2-29)
[2024-08-18 02:13] LABS: Zinc 70 mcg/dL (60-130)
[2024-08-20 00:13] LABS: Vitamin A 50 mcg/dL (38-98)
[2024-08-21 06:28] LABS: Vitamin B1 <6 nmol/L (8-30)
== END 2024-08-14 07:37 | disposition home or self-care (01) ==
LOC: HO.US 07:36
PROVIDERS: PCP Physician Assistant Medical; Visit Provider Surgery
DX: E66.01 Morbid (severe) obesity due to excess calories (principal); J45.909 Unspecified asthma, uncomplicated
CPT/HCPCS: 36415; 71046; 76700; 76981; 80053; 80061; 82306; 82607; 82728; 82746; 83036; 83525; 83540; 84425; 84443; 84590; 84630; 85025; 86140; 93005

== ENCOUNTER 2024-09-03 08:50 | Day surgery (SDC) | payer OTHER, SELFPAY ==
--- NOTE | 2024-09-01 10:05 | P.CONAN_ITS ---
Documented by User: Suzette Zavala NP 09/01/24 10:05 HPI - Anesthesia Eval Consult details Narrative: 24yo M for Upper Endoscopy PMFSH Active Problems Active Problems: All Active Problems Vitamin D deficiency (Acute) Morbid obesity (Acute) Obesity (Acute) Asthma (Acute) Normal physical examination, routine (Acute) Laboratory tests ordered as part of a complete physical exam (CPE) (Acute) Past Medical History Medical History Bowel disease, inflammatory Morbid obesity Sinusitis Seasonal allergies Obesity Asthma Family History Family History Mother High blood pressure Diabetes Thyroid disorder Father Asthma Surgical History Surgical History H/O wisdom tooth extraction Social History Social History Housing: Apartment Alcohol intake: current Alcohol intake frequency: holidays/special occasions only Patient Tobacco Use Status: Current someday Tobacco user e-Cigarette/Vaping Use: Currently Using Use of substances other than those prescribed or required for medical reasons: No Are you DNR?: No Advance Directives: No Advance Directives Information Provided: Yes Advance Directives on File: No Recently lost weight without trying: No Nutrition Risks: No Nutritional Risk service: No Current occupational status: employed 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 Cognitive needs: No Hearing needs: No Vision needs: No Meds Allergies Allergy/AdvReac Type Severity Reaction Status Date / Time lactose Allergy Mild Flatulence Verified 07/27/24 08:41 animal dander Allergy Itchy Eyes Verified 07/27/24 08:41 house dust AdvReac Intermediate Sneezing Verified 07/27/24 08:41 Home Medications ?Medication ?Instructions ?Recorded ?Confirmed ?Last Taken ?Type fexofenadine 180 mg tablet 180 mg PO DAILY 11/07/23 09/03/24 Unknown History (Staci Allergy) oxymetazoline 0.05 % nasal spray 2 spray intranasal Q12H PRN 11/07/23 09/03/24 Unknown History (Afrin (oxymetazoline)) Allergic Symptoms multivitamin 1 tab PO DAILY 06/19/24 09/03/24 Unknown History Assessment and Plan Assessment Anesthesia Assessment: Chart Reviewed Documented by User: Jessica Toro MD 09/03/24 09:40 [facility] Past Medical History Medical History Bowel disease, inflammatory Morbid obesity Sinusitis Seasonal allergies Obesity Asthma Family History Family History Mother High blood pressure Diabetes Thyroid disorder Father Asthma Surgical History Surgical History H/O wisdom tooth extraction History of Problems with Anesthesia: No Social History Social History Housing: Apartment Alcohol intake: current Alcohol intake frequency: holidays/special occasions only Patient Tobacco Use Status: Current someday Tobacco user e-Cigarette/Vaping Use: Currently Using Use of substances other than those prescribed or required for medical reasons: No Are you DNR?: No Advance Directives: No Advance Directives Information Provided: Yes Advance Directives on File: No Recently lost weight without trying: No Nutrition Risks: No Nutritional Risk service: No Current occupational status: employed 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 Cognitive needs: No Hearing needs: No Vision needs: No Meds Allergies Allergy/AdvReac Type Severity Reaction Status Date / Time lactose Allergy Mild Flatulence Verified 07/27/24 08:41 animal dander Allergy Itchy Eyes Verified 07/27/24 08:41 house dust AdvReac Intermediate Sneezing Verified 07/27/24 08:41 Home Medications ?Medication ?Instructions ?Recorded ?Confirmed ?Last Taken ?Type fexofenadine 180 mg tablet 180 mg PO DAILY 11/07/23 09/03/24 Unknown History (Staci Allergy) oxymetazoline 0.05 % nasal spray 2 spray intranasal Q12H PRN 11/07/23 09/03/24 Unknown History (Afrin (oxymetazoline)) Allergic Symptoms multivitamin 1 tab PO DAILY 06/19/24 09/03/24 Unknown History Exam Airway Mallampati Class: III TM Dist: >3cm Neck ROM: Full Loose/Missing/Broken Teeth: No Heart: RRR Lungs: CTA Assessment and Plan Assessment Anesthesia Assessment: Anesthesia Plan Discussed Final Anesthetic Review History of Problems with Anesthesia: No NPO: Yes ASA Class: III Final Preanesthetic Review: Meds/Allgs Chart Reviewed, Consent Obtained/Reviewed and Anes Risks/Benef Reviewed Patient Risk: Intermediate Procedure Risk: Intermediate Anesthetic Plan Anesthetic Plan: MAC: Disposition: Standard PACU
[2024-09-03 09:15] VITALS: BMI 44.9
[2024-09-03 09:31] VITALS: BP 131/86; PULSE 86; RESP 16; TEMP 36.8; O2SAT 98
--- NOTE | 2024-09-03 09:44 | P.HPSUR_ITS ---
Pre-Procedural Eval Section A - 24 Hr Update-Section A only Date of Service: 09/03/24 The patient is an INPATIENT: No The patient has been examined within 24 hours of the surgical procedure. The History & Physical has been completed within 30 days and I have reviewed it.: Yes Section B - Complete if H&P > 30 days Chief Complaint: Morbid (severe) obesity due to excess calories Relevant Family History (Specify if Yes): No Relevant Social History: None Present Medications: None Medical History: No relevant PMH History of Previous Operations: No relevant previous surgery Allergies: Allergies Allergy/AdvReac Type Severity Reaction Status Date / Time lactose Allergy Mild Flatulence Verified 07/27/24 08:41 animal dander Allergy Itchy Eyes Verified 07/27/24 08:41 house dust AdvReac Intermediate Sneezing Verified 07/27/24 08:41 Review of Systems Sugical H&P ROS: Negative: Constitution, Cardiovascular, Respiratory, Neurological, Psychiatric, Hem-Onc, Allergic/Immunologic, Gastrointestinal, Genitourinary, Musculoskeletal, Integumentary, Endocrine and Eyes/Ears/Nose/Throat Exam Surgical H&P Exam: Normal: HEENT, Normal: Heart, Normal: Lungs, Normal: Extr emities, Normal: Abdomen, Normal: Skin and Normal: Neurological Plan Diagnosis/Plan: Unchanged (EGD to assess the stomach's anatomy. Risks of bleeding and perforation were discussed with the patient and he is in agreement with the plan.) I have reviewed the history and physical and performed a pertinent physical examination on my patient. No changes have occurred unless specified. Time Spent With Patient Time: Total time managing care of this patient today ____ minutes.
[2024-09-03] MEDS: Lactated Ringers 1,000 ML 80 ML IVCONT (09:48)
[2024-09-03 10:41] VITALS: BP 120/61; PULSE 88; RESP 16; TEMP 36.1; O2SAT 99
--- NOTE | 2024-09-03 10:52 | P.BOP_ITS ---
Brief Operative Note Date of Service: 09/03/24 Pre-op diagnosis: Morbid obesity Post-op diagnosis: same Procedure: PROCEDURE DATE: 09/03/2024 PREOPERATIVE DIAGNOSIS: GERD POSTOPERATIVE DIAGNOSIS: ?Same as above. Very small diaphragmatic hernia PROCEDURE: Kpnxglvy-eshqin-zqqpbtrzqimh with biopsies Surgeon: ?Everardo Schmidt M.D.. Ph.D. Strategy Analyst: None ? Anesthesia: IV sedation Estimated blood loss: ?Minimal FINDINGS AND PROCEDURE: ? OPERATIVE INDICATIONS: ?The patient is a 24 year old male known to me who is interested in bariatric surgery. Based on this information I recommended an upper endoscopy to evaluate the stomach's anatomy. Risks and complications of the surgery were discussed with the patient in advance particularly the possibility of perforation or bleeding that may require surgical intervention. The patient understood the risks and was in agreement with the plan. ? PROCEDURE: After informed consent was obtained by the patient, the patient was ?transferred to the Operating Room and was placed in the supine position.? After successful induction of IV sedation, a mouth block was inserted and the patient was placed in the left lateral decubitus position. An upper endoscopy was performed next, the oropharynx and esophagus appeared within the normal limits. There was a very hiatal hernia. The z-line was smooth. Two biopsies were obtained from the distal esophagus 2-3 cm proximal to the GE junction and two additional biopsies from the GE junction. The stomach was entered. It was very tortuous and could not ve visualized very well or be able to expand it adequately. It seems that the patient has a large gastruc fundus, There was no gastritis. There was no stricture or ulcer. A biopsy was obtained from the antrum. No significant bleeding was noted from any of the biopsy sites. Retroflexion of the scope was performed but the GE junction could not be visualized very well. A biopsy was obtained from the gastric fundus, The scope was then advanced into the duodenum which appeared to be normal as well. At that point the duodenum ?and the stomach were decompressed and the scope was withdrawn from the patient's mouth. The patient extubated and was transferred in stable condition to the Recovery Room for further care. I was present and performed all steps of the procedure. There were no residents to assist with this case. Everardo Schmitd M.D., Ph.D. Surgeon: Ryan Schmidt MD Anesthesia: GETA, local and other (TAP block) Was an Strategy Analyst used for this Procedure?: No Estimated blood loss (mL): 0 IV fluids (mL): 400 Urine output (mL): 0 (No Lozoya to record output) Pathology: other (1) antrum x1, 2) fundus x1, 3) GE junction x2, 4) distal esophagus x2) Condition: stable Disposition: PACU
[2024-09-03 10:56] VITALS: BP 123/84; PULSE 78; RESP 14; O2SAT 94
[2024-09-03 11:11] VITALS: BP 146/90; PULSE 86; RESP 18; TEMP 36.4; O2SAT 96
== END 2024-09-03 11:30 | disposition home or self-care (01) ==
PROVIDERS: PCP Physician Assistant Medical; Visit Provider Surgery
PROC: 0DJ08ZZ Inspection of Upper Intestinal Tract, Via Natural or Artificial Opening Endoscopic (ICD-10-PCS; CPT 43235; principal; 2024-09-03 11:00)
DX: E66.01 Morbid (severe) obesity due to excess calories (principal); Z68.42 Body mass index [BMI] 45.0-49.9, adult; K29.50 Unspecified chronic gastritis without bleeding; B96.81 Helicobacter pylori [H. pylori] as the cause of diseases classified elsewhere; K44.9 Diaphragmatic hernia without obstruction or gangrene; J45.909 Unspecified asthma, uncomplicated; J32.9 Chronic sinusitis, unspecified; E73.9 Lactose intolerance, unspecified; Z79.899 Other long term (current) drug therapy; F17.290 Nicotine dependence, other tobacco product, uncomplicated
CPT/HCPCS: 43239; 88305; 88313; 88342; J2250; J2704

== ENCOUNTER → 2024-09-03 08:50 | Outpatient (BNV) | payer OTHER, SELFPAY | PROVIDERS: PCP Physician Assistant Medical; Visit Provider Surgery | DX: K44.9 Diaphragmatic hernia without obstruction or gangrene (principal) | CPT/HCPCS: 43239 ==

== ENCOUNTER → 2024-09-04 08:10 | Outpatient (AMB) | payer OTHER, SELFPAY ==
--- NOTE | 2024-09-04 08:00 | A.OFFWM_ITS ---
Intake Intake Visit Reasons: VIDEO BH Intake Allergies lactose Allergy (Mild, Verified 07/27/24 08:41) Flatulence animal dander Allergy (Verified 07/27/24 08:41) Itchy Eyes house dust Adverse Reaction (Intermediate, Verified 07/27/24 08:41) Sneezing [facility] Medical History Bowel disease, inflammatory Morbid obesity Sinusitis Seasonal allergies Obesity Asthma Surgical History H/O wisdom tooth extraction Family History Mother High blood pressure Diabetes Thyroid disorder Father Asthma Social History Housing: Apartment Alcohol intake: current Alcohol intake frequency: holidays/special occasions only Patient Tobacco Use Status: Current someday Tobacco user e-Cigarette/Vaping Use: Currently Using service: No Current occupational status: employed 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 Presenting Concerns Referral Source WMP - Provider. Reason for referral Completion of behavioral health assessment as part of process for weight-loss surgery. Precipitating Event Obesity. PT started the program on 07/27 and initial weight was 320Lbs. Living Situation Current Living Situation Rent At risk of losing current housing? No Satisfied with current living situation? Yes Comments PT lives alone. Food/Weight/Diet Expectations of change Initial goal to lose 10% of your weight before surgery, which is about 32lbs. Ultimate weight goal: 288lbs before surgery. Most recent weight 313Lbs. Current meal plan:1 shake (divided in 2- in the morning), 1 bar at noon, meal at 4pm, 1 bar in the evening. Current exercise plan: attend [employer] and used the treadmill and elliptical for about 1 hr. He does 3-4 times at week. History/Relationship with food PT reports he was following a very unhealthy eating and find himself doing take out most of the days. Example of meals before started the program Breakfast: skip Lunch: fast food. The regular was [employer] double quarter pounder w/ cheese letters and tomatoes, nuggets, fries and soda. Dinner: style, cooked by his mom. @8pm, Rice, beans, pork chops. Drinks: Ice tea, Gatorade during the day. Low water intake mostly energy drinks. History/Relationship with weight PT reports she has always been overweight. The skinniest he has been when he graduated HS and he was 220Lbs. On his family most people are big and 4 family members have had bariatric sister, 3 siblings and her sister-in law. They were all morbidly obese. Maintained this weight for about 3 years as he was more active at work. 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 His highest weight was around 330Lbs couple months ago. History/Relationship with dieting Gym, playing basketball and be more active. Never set any specific plan, and patient understands that since he never did changes on eating habits he was not losing weight. Binge Eating Do you frequently eat large amounts of food in short periods of time, not feeling physically hungry? Yes Social History Family history and relationship PT never , but he has a girlfriend and they have been together for 2 years. Parents are alive, but they are . Her mother re- when he was 1 year old, and still with step-dad who raised him. Bio-father lives in [place]. He has 8 siblings. 2 siblings from his mom side, 5 from rashawn p-dad and 3 in [place] from bio-dad. PT reports he has great family dynamics. 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 Cultural/Ethnic information . Parents are from , he was born in [place]. Step-dad is from [place]. 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 1. Little interest or pleasure in doing things: not at all 2. Feeling down, depressed, or hopeless: not at all 3. Trouble falling or staying asleep, or sleeping too much: not at all 4. Feeling tired or having little energy: not at all 5. Poor appetite or overeating: not at all 6. Feeling bad about yourself - or that you are a failure or have let yourself or your family down: not at all 7. Trouble concentrating on things, such as reading the newspaper or watching television: not at all 8. Moving or speaking so slowly that other people could have noticed. Or the opposite - being so fidgety or restless that you have been moving around a lot more than usual: not at all 9. Thoughts that you would be better off or of hurting yourself in some way: not at all Total score: 0 Depression Screening Interpretation: Negative (07/28, From new PT pack.) Depression Screening Done: Yes Source: Developed by Drs. Brandon Levin, Felicia Hernández, John Oliver and colleagues, with an educational papi from [employer]. Binge Eating Scale Group 1 A. I don't feel self-conscious about my wt. or body size when I'm with others. B. I feel concerned about how I look to others, but it normally does not make me fell disappointed with myself C. I do get self-conscious about my appearance and wt. which makes me feel disappointed in myself. D. I feel very self-conscious about my wt. and frequently I feel intense shame and disgust for myself. I try to avoid social contacts because of my self- consciousness. Response Group 1: A Group 2 A. I don't have any difficulty eating slowly in the proper manner. B. Although I seem to gobble down foods, I don't end up feeling stuffed because of eating to much. C. At times, I tend to eat quickly and then, I feel uncomfortably full afterwards. D. I have the habit of bolting down my food, without really chewing it. When this happens I usually feel uncomfortably stuffed because I've eaten to much. Response Group 2: A Group 3 A. I feel capable to control my eating urges when I want to. B. I feel like I have failed to control my eating more than the average person. C. I feel utterly helpless when it comes to feeling in control of my eating urges. D. Because I feel so helpless about controlling my eating I have become very desperate about trying to get control. Response Group 3: A Group 4 A. I don't have the habit of eating when I'm bored. B. I sometimes eat when I'm bored, but often I'm able to get busy and get my mind off food. C. I have a regular habit of eating when I'm bored, but occasionally, I can use some other activity to get my mind off eating. D. I have a strong habit of eating when I'm bored. Nothing seems to help me breath the habit. Response Group 4: A Group 5 A. I'm usually physically hungry when I eat something. B. Occasionally, I eat something on impulse even though I really am not hungry. C. I have the regular habit of eating foods, that I might not really enjoy, to satisfy a hungry feeling even though physically, I don't need the food. D. Although I'm not physically hungry, I get a hungry feeling in my mouth that o nly seems to be satisfied when I eat a food, like sandwich, that fills my mouth. Sometimes, when I eat the food to satisfy my mouth hunger, I then spit the food out so I won't gain weight. Response Group 5: A Group 6 A. I don't feel any guilt or self-hate after I overeat. B. After I overeat, occasionally I feel guilt or self-hate. C. Almost all the time I experience strong guilt or self-hate after I overeat. Response Group 6: A Group 7 A. I don't lose total control of my eating when dieting even after periods when I overeat. B. Sometimes when I eat a forbidden food on a diet, I feel like I blew it and eat even more. C. Frequently, I have the habit of saying to myself, I've blown it now, why not go all the way, when I overeat on a diet. When that happens I eat more. D. I have a regular habit of starting a strict diets for myself but I break the diets by going on an eating binge. My life seems to be either a feast or famine. Response Group 7: A Group 8 A. I rarely eat so much food that I feel uncomfortably stuffed afterwards. B. Usually about once a month, I each such a quantity of food, I end up feeling very stuffed. C. I have regular periods during the month when I eat large amounts of food, either at mealtime or at snacks. D. I eat so much food that I regularly feel quite uncomfortable after eating and sometimes a bit nauseous. Response Group 8: B Group 9 A. My level of calorie intake does not go up very high or go down very low on a regular basis. B. Sometimes after I overeat, I will try to reduce my caloric intake to almost nothing to compensate for the excess calories I've eaten. C. I have a regular habit of overeating during the night. It seems that my routine is not to be hungry in the morning but overeat in the evening. D. In my adult years, I have had week-long periods where I practically starve myself. This follows periods when I overeat. It seems I live a life of either feast or famine. Response Group 9: A Group 10 A. I usually am able to stop eating when I want to. I know when enough is enough. B. Every so often, I experience a compulsion to eat which I can't seem to control. C. Frequently, I experience strong urges to eat which I seem unable to control, but at other times I can control my eating urges. D. I feel incapable of controlling urges to eat. I have a fear of not being able to stop eating voluntarily. Response Group 10: A Group 11 A. I don't have any problem stopping eating when I feel full. B. I usually can stop eating when I feel full but occasionally overeat leaving me feeling uncomfortably stuffed. C. I have a problem stopping eating once I start and usually I feel uncomfortably stuffed after I eat a meal. D. Because I have a problem not being able to stop eating when I want, I sometimes have to induce vomiting to relieve my stuffed feeling. Response Group 11: A Group 12 A. I seem to eat just as much when I'm with others, Family social gatherings as when I'm by myself. B. Sometimes, when I'm with other persons, I don't eat as much as I want to eat because I'm self-conscious about my eating. C. Frequently, I eat only a small amount of food when others are present, because I'm very embarrassed about my eating. D. I feel so ashamed about overeating that I pick times to overeat when I know no one will see me. I feel like a closet eater. Response Group 12: A Group 13 A. I eat three meals a day with only an occasional between meal snack. B. I eat 3 meals a day, but I also normally snack between meals. C. When I am snacking heavily, I get in the habit of skipping regular meals. D. There are regular periods when I seem to be continually eating, with no planned meals. Response Group 13: A Group 14 A. I don't think much about trying to control unwanted eating urges. B. At least some of the time, I feel my thoughts are pre-occupied with trying to control my eating urges. C. I feel that frequently I spend much time thinking about how much I ate or about trying not to eat anymore. D. It seems to me that most of my waking hours are pre-occupied by thoughts about eating or not eating. I feel like I'm constantly struggling not to eat. Response Group 14: A Group 15 A. I don't think about food a great deal. B. I have strong craving for food but they last only for brief periods of time. C. I have days when I can't seem to think about anything else but food. D. Most of my days seem to be pre-occupied with thoughts about food. I feel like I live to eat. Response Group 15: A Group 16 A. I usually know whether or not I'm physically hungry. I take the right portion of food to satisfy me. B. Occasionally, I feel uncertain about knowing whether or not I'm physically hungry. A these times it's hard to know how much food I should take to satisfy me. C. Even though I might know how many calories I should eat, I don't have any idea what is a normal amount of food for me. Response Group 16: A Binge Eating Score: 1 Score less than 17 Minimal Risk Score between 18-26 Moderate Risk Score between 27-46 High Risk Assessment & Plan Assessment & Plan (1) Problems related to inappropriate diet and eating habits: Code(s): Z72.4 - Inappropriate diet and eating habits (2) Eating disorder, unspecified: Code(s): F50.9 - Eating disorder, unspecified Qualifiers: Eating disorder type: unspecified eating disorder Qualified Code(s): F50.9 - Eating disorder, unspecified Plan The assessment for the patient is not yet complete. PT will follow up on 09/25/24 to continue the assessment. The PHQ-9 will be administered again at the next visit, and the BES will be reviewed with PT. Coding Level of Care Code New Pt Tele Psy Diag Marcelo ([id number]) Patient Type New Diagnoses Problems related to inappropriate diet and eating habits Z72.4 Eating disorder, unspecified type F50.9 Eating disorder type: unspecified eating disorder Time Spent (min) 60 Comment Start time: 8:00am, End time: 9:00am
== END ==
LOC: HO.HBST 08:10
PROVIDERS: PCP Physician Assistant Medical; Visit Provider Counselor Mental Health
DX: F50.9 Eating disorder, unspecified (principal)
CPT/HCPCS: 90791

== ENCOUNTER → 2024-09-04 08:10 | Outpatient (BNVA) | payer OTHER, SELFPAY | PROVIDERS: PCP Physician Assistant Medical; Visit Provider Counselor Mental Health ==

== ENCOUNTER → 2024-09-25 09:38 | Outpatient (BNVA) | payer OTHER, SELFPAY | PROVIDERS: PCP Physician Assistant Medical; Visit Provider Counselor Mental Health ==

== ENCOUNTER → 2024-09-25 09:38 | Outpatient (AMB) | payer OTHER, SELFPAY ==
--- NOTE | 2024-09-25 09:10 | A.OFFWM_ITS ---
Intake Intake Visit Reasons: VIDEO BH F/U Allergies lactose Allergy (Mild, Verified 07/27/24 08:41) Flatulence animal dander Allergy (Verified 07/27/24 08:41) Itchy Eyes house dust Adverse Reaction (Intermediate, Verified 07/27/24 08:41) Sneezing [facility] Medical History Bowel disease, inflammatory Morbid obesity Sinusitis Seasonal allergies Obesity Asthma Surgical History H/O wisdom tooth extraction Family History Mother High blood pressure Diabetes Thyroid disorder Father Asthma Social History Housing: Apartment Alcohol intake: current Alcohol intake frequency: holidays/special occasions only Patient Tobacco Use Status: Current someday Tobacco user e-Cigarette/Vaping Use: Currently Using service: No Current occupational status: employed 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 PT denied any history of mental health treatment and or past hospitalization/crisis for behavioral health. Also, denies any history or r ecent safety concerns around SI/SA and/or self-harm/other-harm, also there is no history of substance use reported. There is also no evidence for stress/emotional-eating, and scores from BES suggest low risk for binge eating behavior. PHQ- scores also showed no active symptoms/concerns with depression. On the other hand, mental status exam is within normal limits, suggesting person's functioning is not impaired. At this time patient is cleared from the behavioral health standpoint. Presenting Concerns Referral Source [facility]MP - Provider. Reason for referral Completion of behavioral health assessment as part of process for weight-loss surgery. Precipitating Event Obesity. PT started the program on 07/27 and initial weight was 320Lbs. Living Situation Current Living Situation Rent At risk of losing current housing? No Satisfied with current living situation? Yes Comments PT lives alone. Food/Weight/Diet Expectations of change Initial goal to lose 10% of his weight before surgery, which is about 32lbs. Ultimate weight goal: 288lbs before surgery. Most recent weight 310Lbs. Current meal plan:1 shake (divided in 2- in the morning), 1 bar at noon, meal at 4pm, 1 bar in the evening. Current exercise plan: attend [employer] and used the treadmill and elliptical for about 1 hr. He does 3-4 times at week. History/Relationship with food PT reports he was following a very unhealthy eating and find himself doing take out most of the days. Example of meals before started the program Breakfast: skip Lunch: fast food. The regular was [employer] double quarter pounder w/ cheese letters and tomatoes, nuggets, fries and soda. Dinner: style, cooked by his mom. @8pm, Rice, beans, pork chops. Drinks: Ice tea, Gatorade during the day. Low water intake mostly energy drinks. History/Relationship with weight PT reports she has always been overweight. The skinniest he has been when he graduated and he was 220Lbs. On his family most people are big and 4 family members have had bariatric sister, 3 siblings and her sister-in law. They were all morbidly obese. Maintained this weight for about 3 years as he was more active at work. 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 His highest weight was around 330Lbs couple months ago. History/Relationship with dieting Gym, playing basketball and be more active. Never set any specific plan, and patient understands that since he never did changes on eating habits he was not losing weight. Binge Eating Do you frequently eat large amounts of food in short periods of time, not feeling physically hungry? Yes Social History Family history and relationship PT never , but he has a girlfriend and they have been together for 2 years. Parents are alive, but they are . Her mother re- when he was 1 year old, and still with step-dad who raised him. Bio-father lives in [place]. He has 8 siblings. 2 siblings from his mom side, 5 from rashawn p-dad and 3 in [place] from bio-dad. PT reports he has great family dynamics. Parental/Familial project management obligations None. Developmental history and status None reported. Currently [facility]. Social support Girlfriend, friends, brother who had surgery. Community support PCP. Anabaptism/Spirituality Sikhism family, he doesn't attend baptist but he is a believer of God. Cultural/Ethnic information . Parents are from , he was born in [place]. Step-dad is from [place]. Legal Involvement and History Current or historical involvement with the legal system? None reported. Education Highest grade completed HS. 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 Some college. Currently enrolled in educational program? No Interested in further educational program? Yes Educational Interests/Skills Automotive. Initially he went for mechanical engineering and would like to finish at some point. 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 ) Wants help to find employment? No Meaningful activities Cars/automotive technology. Basketball. Traveling. Financial Situation Describe current financial situation Comfortable Financial assistance? None Service Service? No Mental Health and Addiction Treatment Current/Past substance abuse? No Comments Alcohol: Occasionally, 1-2 times at month, no more than 2 drinks. Cigarettes/Tobacco: Uses a vape with 3m of flavored nicotine but for the last month hasn't use it as he has been sick. Cannabis/Edibles: None. Current/Past addictive behavior concerns? No Psychiatric history PT denies ever been in crisis or inpatient for mental health. There is no history and/or current concern about SI/SA and self-harm or other harm. Medical and Physical Health Summary Additional Medical History not covered in history None reported. Sexual History concerns None reported Physical exam in the last year? Yes Pain Screening Current pain? No Pain in the last few months? No Medications Is the patient compliant with medications? Not applicable Does the patient have Marcus Guardian in place? Not applicable Does the patient use complimentary health approaches? No Trauma/Abuse History History of trauma? No Questionnaires PHQ-9 Over the last 2 weeks, how often have you been bothered by any of the following problems? 1. Little interest or pleasure in doing things: not at all 2. Feeling down, depressed, or hopeless: not at all 3. Trouble falling or staying asleep, or sleeping too much: not at all 4. Feeling tired or having little energy: several days 5. Poor appetite or overeating: not at all 6. Feeling bad about yourself - or that you are a failure or have let yourself or your family down: not at all 7. Trouble concentrating on things, such as reading the newspaper or watching television: not at all 8. Moving or speaking so slowly that other people could have noticed. Or the opposite - being so fidgety or restless that you have been moving around a lot more than usual: not at all 9. Thoughts that you would be better off or of hurting yourself in some way: not at all Total score: 1 Depression Screening Interpretation: Negative Depression Screening Done: Yes 47969 - PHQ-9 Billing: Yes Source: Developed by Drs. Brandon Levin, Felicia Hernández, John Oliver and colleagues, with an educational papi from [employer]. Binge Eating Scale Group 1 A. I don't feel self-conscious about my wt. or body size when I'm with others. B. I feel concerned about how I look to others, but it normally does not make me fell disappointed with myself C. I do get self-conscious about my appearance and wt. which makes me feel disappointed in myself. D. I feel very self-conscious about my wt. and frequently I feel intense shame and disgust for myself. I try to avoid social contacts because of my self- consciousness. Response Group 1: A Group 2 A. I don't have any difficulty eating slowly in the proper manner. B. Although I seem to gobble down foods, I don't end up feeling stuffed because of eating to much. C. At times, I tend to eat quickly and then, I feel uncomfortably full afterwards. D. I have the habit of bolting down my food, without really chewing it. When this happens I usually feel uncomfortably stuffed because I've eaten to much. Response Group 2: A Group 3 A. I feel capable to control my eating urges when I want to. B. I feel like I have failed to control my eating more than the average person. C. I feel utterly helpless when it comes to feeling in control of my eating urges. D. Because I feel so helpless about controlling my eating I have become very desperate about trying to get control. Response Group 3: A Group 4 A. I don't have the habit of eating when I'm bored. B. I sometimes eat when I'm bored, but often I'm able to get busy and get my mind off food. C. I have a regular habit of eating when I'm bored, but occasionally, I can use some other activity to get my mind off eating. D. I have a strong habit of eating when I'm bored. Nothing seems to help me breath the habit. Response Group 4: A Group 5 A. I'm usually physically hungry when I eat something. B. Occasionally, I eat something on impulse even though I really am not hungry. C. I have the regular habit of eating foods, that I might not really enjoy, to satisfy a hungry feeling even though physically, I don't need the food. D. Although I'm not physically hungry, I get a hungry feeling in my mouth that only seems to be satisfied when I eat a food, like sandwich, that fills my mouth. Sometimes, when I eat the food to satisfy my mouth hunger, I then spit the food out so I won't gain weight. Response Group 5: A Group 6 A. I don't feel any guilt or self-hate after I overeat. B. After I overeat, occasionally I feel guilt or self-hate. C. Almost all the time I experience strong guilt or self-hate after I overeat. Response Group 6: A Group 7 A. I don't lose total control of my eating when dieting even after periods when I overeat. B. Sometimes when I eat a forbidden food on a diet, I feel like I blew it and eat even more. C. Frequently, I have the habit of saying to myself, I've blown it now, why not go all the way, when I overeat on a diet. When that happens I eat more. D. I have a regular habit of starting a strict diets for myself but I break the diets by going on an eating binge. My life seems to be either a feast or famine. Response Group 7: A Group 8 A. I rarely eat so much food that I feel uncomfortably stuffed afterwards. B. Usually about once a month, I each such a quantity of food, I end up feeling very stuffed. C. I have regular periods during the month when I eat large amounts of food, either at mealtime or at snacks. D. I eat so much food that I regularly feel quite uncomfortable after eating and sometimes a bit nauseous. Response Group 8: B Group 9 A. My level of calorie intake does not go up very high or go down very low on a regular basis. B. Sometimes after I overeat, I will try to reduce my caloric intake to almost nothing to compensate for the excess calories I've eaten. C. I have a regular habit of overeating during the night. It seems that my routine is not to be hungry in the morning but overeat in the evening. D. In my adult years, I have had week-long periods where I practically starve myself. This follows periods when I overeat. It seems I live a life of either feast or famine. Response Group 9: A Group 10 A. I usually am able to stop eating when I want to. I know when enough is enough. B. Every so often, I experience a compulsion to eat which I can't seem to control. C. Frequently, I experience strong urges to eat which I seem unable to control, but at other times I can control my eating urges. D. I feel incapable of controlling urges to eat. I have a fear of not being able to stop eating voluntarily. Response Group 10: A Group 11 A. I don't have any problem stopping eating when I feel full. B. I usually can stop eating when I feel full but occasionally overeat leaving me feeling uncomfortably stuffed. C. I have a problem stopping eating once I start and usually I feel uncomfortably stuffed after I eat a meal. D. Because I have a problem not being able to stop eating when I want, I sometimes have to induce vomiting to relieve my stuffed feeling. Response Group 11: A Group 12 A. I seem to eat just as much when I'm with others, Family social gatherings as when I'm by myself. B. Sometimes, when I'm with other persons, I don't eat as much as I want to eat because I'm self-conscious about my eating. C. Frequently, I eat only a small amount of food when others are present, becau se I'm very embarrassed about my eating. D. I feel so ashamed about overeating that I pick times to overeat when I know no one will see me. I feel like a closet eater. Response Group 12: A Group 13 A. I eat three meals a day with only an occasional between meal snack. B. I eat 3 meals a day, but I also normally snack between meals. C. When I am snacking heavily, I get in the habit of skipping regular meals. D. There are regular periods when I seem to be continually eating, with no planned meals. Response Group 13: A Group 14 A. I don't think much about trying to control unwanted eating urges. B. At least some of the time, I feel my thoughts are pre-occupied with trying to control my eating urges. C. I feel that frequently I spend much time thinking about how much I ate or about trying not to eat anymore. D. It seems to me that most of my waking hours are pre-occupied by thoughts about eating or not eating. I feel like I'm constantly struggling not to eat. Response Group 14: A Group 15 A. I don't think about food a great deal. B. I have strong craving for food but they last only for brief periods of time. C. I have days when I can't seem to think about anything else but food. D. Most of my days seem to be pre-occupied with thoughts about food. I feel like I live to eat. Response Group 15: A Group 16 A. I usually know whether or not I'm physically hungry. I take the right portion of food to satisfy me. B. Occasionally, I feel uncertain about knowing whether or not I'm physically hungry. A these times it's hard to know how much food I should take to satisfy me. C. Even though I might know how many calories I should eat, I don't have any idea what is a normal amount of food for me. Response Group 16: A Binge Eating Score: 1 Score less than 17 Minimal Risk Score between 18-26 Moderate Risk Score between 27-46 High Risk Assessment & Plan Assessment & Plan (1) Problems related to inappropriate diet and eating habits: Code(s): Z72.4 - Inappropriate diet and eating habits (2) Adjustment disorder, unspecified: Code(s): F43.20 - Adjustment disorder, unspecified Qualifiers: Adjustment disorder type: unspecified type Qualified Code(s): F43.20 - Adjustment disorder, unspecified Plan PT has been cleared from standpoint. He has been advised of available resources and support at anytime while part of the program. PT agreed to be seen after surgery for support. Next maribel: 2-6 wks PO Telehealth Telehealth Telehealth Platform: Telephone Location of provider rendering services: practice address Location of patient: address on file Patient Identification confirmed using: Name, : Yes Telehealth method: voice only Patient verbally consented to treatment: Yes Patient verbally consented to billing insurance company: Yes Patient informed of any privacy concerns related to visit: Yes Minutes spent on Phone/Video with Pt.: 55 Coding Level of Care Code Established Pt Tele Psytx >53 mins (63703) Patient Type Established Diagnoses Problems related to inappropriate diet and eating habits Z72.4 Adjustment disorder, unspecified type F43.20 Adjustment disorder type: unspecified type Additional Codes PHQ-9 - 10116 - PHQ-9 Billing: Yes ([id number]) Time Spent (min) 55
== END ==
LOC: HO.HBST 09:38
PROVIDERS: PCP Physician Assistant Medical; Visit Provider Counselor Mental Health
DX: F43.20 Adjustment disorder, unspecified (principal); Z72.4 Inappropriate diet and eating habits
CPT/HCPCS: 90837

== ENCOUNTER 2024-10-02 09:47 | Outpatient (REF) | payer OTHER, SELFPAY ==
--- NOTE | ~2024-10-02 | FL_ITS ---
EXAMINATION: XR FLUOROSCOPY UPPER GI WITH AIR CLINICAL INFORMATION: Preoperative evaluation prior to bariatric surgery COMPARISON: None TECHNIQUE: Fluoroscopic air contrast upper GI examination was performed utilizing standard techniques with thin and thick barium and effervescent granules. Numerous spot images were obtained. FINDINGS: Dual and single contrast images of the esophagus demonstrate normal caliber, contour, and mucosal pattern. No evidence of stricture, mass, or ulcerations identified. Esophageal peristalsis was normal. No evidence of hiatus hernia identified. Gastroesophageal reflux is seen up to the level of the aortic arch. Dual contrast and single contrast images of the stomach demonstrated a normal contour. Evaluation of the gastric mucosa is somewhat limited due to suboptimal coating of the barium. No obvious mass, or ulcerations are seen. Contrast freely passed into the gastric antrum and duodenal bulb without delay. Single and air-contrast images of the duodenal bulb demonstrate no abnormality. The duodenal sweep has a normal appearance, course, and mucosal fold appearance. The imaged proximal jejunum has a normal fold pattern and caliber. FLUOROSCOPY TIME: 3 minutes 37 seconds Number of Spot Images: 7 Number of Cine: 13 DOSE AREA PRODUCT: [id number] uGy-m2 (microgray-meter squared) FL/FL upper GI w air IMPRESSION: 1. Moderate gastric esophageal reflux. 2. Limited evaluation of the gastric mucosa due to suboptimal coating of the barium. No obvious masses or ulcerations are seen. This procedure was performed by Aayush Whelan PA-C, and supervised by Dr. Rivera Electronically signed by: Henry Rivera MD 10/07/2024 02:39 PM [facility] Workstation: [id number]
== END 2024-10-02 09:48 | disposition home or self-care (01) ==
LOC: HO.XRAY 09:47
PROVIDERS: PCP Physician Assistant Medical; Visit Provider Surgery
DX: E66.01 Morbid (severe) obesity due to excess calories (principal); J45.909 Unspecified asthma, uncomplicated
CPT/HCPCS: 74246

== ENCOUNTER → 2024-10-02 09:49 | Outpatient (BNV) | payer OTHER, SELFPAY | PROVIDERS: PCP Physician Assistant Medical; Visit Provider Physician Assistant Surgical | DX: K21.9 Gastro-esophageal reflux disease without esophagitis (principal); E66.01 Morbid (severe) obesity due to excess calories | CPT/HCPCS: 74246 ==

== ENCOUNTER 2024-10-23 08:41 | Outpatient (REF) | payer OTHER, SELFPAY ==
[2024-10-25 11:31] LABS: H Pylori Breath Test Negative (Negative)
== END 2024-10-23 08:42 | disposition home or self-care (01) ==
LOC: HO.LNP 08:41
PROVIDERS: Surgery; PCP Physician Assistant Medical; Visit Provider Physician Assistant Surgical
DX: E66.01 Morbid (severe) obesity due to excess calories (principal); J45.909 Unspecified asthma, uncomplicated
CPT/HCPCS: 83013; 99211

== ENCOUNTER 2024-11-04 08:39 | Outpatient (AMB) | payer OTHER, SELFPAY ==
--- NOTE | 2024-11-04 15:03 | MHC.OFFVISWM ---
VS Expanded 11/04/24 15:59 Height 5 ft 10 in Weight 293 lb 8 oz BMI 42.1 Body Fat % 44.5 Body Fat Mass 130.7 Fat Free Mass 162.8 Visceral Fat Rating 24 Body Water % 40.1 Body Water Mass 117.8 Basal Metabolic Rate/Score 1,967 Intake Visit Reasons: TV Pre Op LSG 11/19/24 Allergies animal dander Allergy (Intermediate, Verified 11/04/24 15:03) Itchy Eyes lactose Allergy (Mild, Verified 11/04/24 15:03) Flatulence house dust Adverse Reaction (Intermediate, Verified 11/04/24 15:03) Sneezing Medication List - Last Reconciled 11/04/24 by Ryan Schmidt MD albuterol sulfate 0.63 mg (3 mL) inhalation QID PRN albuterol sulfate 90 mcg/actuation 1 inh inhalation QID PRN cholecalciferol (vitamin D3) 125 mcg PO DAILY fexofenadine (Staci Allergy) 180 mg PO DAILY multivitamin 1 tab PO DAILY nebulizers (AeroEclipse II Nebulizer) As directed ondansetron 4 mg PO Q12H oxymetazoline 0.05% (Afrin (oxymetazoline)) 2 sprays intranasal Q12H PRN pantoprazole 40 mg PO DAILY polyethylene glycol 3350 17 grams PO DAILY sucralfate 10 mL PO BID thiamine HCl (vitamin B1) 100 mg PO DAILY HPI HPI TV Pre Op LSG 11/19/24: Details: Start time: 2.45pm, End time: 3.15pm I spent 25 minutes speaking with the patient on the phone plus an additional 5 minutes reviewing and updating records for a total of 30 minutes HPI Comments Details: Overall weight loss: 27lbs, or 8.42% TBWL This is the preop visit for the upcoming sleeve gastrectomy [facility] Medical History (Updated 09/21/24 @ 18:01 by Ryan Schmidt MD) Bowel disease, inflammatory Morbid obesity Sinusitis Seasonal allergies Obesity Asthma Surgical History (Updated 11/03/24 @ 15:47 by Angeles Mccoy RN) History of esophagogastroduodenoscopy (EGD) H/O wisdom tooth extraction Family History Mother High blood pressure Diabetes Thyroid disorder Father Asthma Social History Housing: Apartment Alcohol intake: current Alcohol intake frequency: holidays/special occasions only Patient Tobacco Use Status: Current someday Tobacco user e-Cigarette/Vaping Use: Currently Using service: No Current occupational status: employed 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 Cognitive needs: No Hearing needs: No Vision needs: No Telehealth Telehealth Telehealth Platform: Telephone Location of provider rendering services: practice address Location of patient: address on file Patient Identification confirmed using: Name, : Yes Telehealth method: voice only Patient verbally consented to treatment: Yes Patient verbally consented to billing insurance company: Yes Patient informed of any privacy concerns related to visit: Yes Minutes spent on Phone/Video with Pt.: 30 Assessment & Plan Assessment & Plan (1) Morbid obesity: Code(s): E66.01 - Morbid (severe) obesity due to excess calories Category: Medical Plan: 1. Plan for lap sleeve gastrectomy including upper GI endoscopy. All tests has been completed and reviewed and the patient is cleared for the surgery. If diaphragmatic or ventral hernias are present at time of surgery, these will be repaired laparoscopically as well. Risks and complications were discussed in detail including possible conversion to an open procedure, anastomotic leak, bleeding requiring transfusion, small bowel obstruction, , DVT and pulmonary embolism, cardiac, or pulmonary complications, as jail complications such as anastomotic ulcer, insufficient weight loss and vitamin deficiencies. I emphasized the importance of close follow-up, adherence to instructions and good communication. So far she has proven to be an excellent communicator and very compliant with all our directions accomplishing a great weight loss. I believe that she is an excellent candidate and she is ready. 2. Preop prescriptions were provided and explained the purpose of each one. Need to be purchased preop. Start Pantoprazole now as you get it from the pharmacy, 1 pill per day. Sucralfate and Zofran are for after surgery as needed. 3. Bowel prep: please do 7 packets of Miralax mixing each one with a an 8oz glass of water, crystal light, gatorade zero, or propel on 11/17/24 and the same amount on 11/18/24. The Miralax you begin with one packet at a time in 8oz water or crystal light, gatorade zero, or propel as early in the day as you can and you do them back to back until you finish them. Continue the protein shakes during the bowel prep. 4. Needs to purchase 1oz medicine cups . 5. Needs to purchase Children's liquid Tylenol for postop pain control. 6. Avoid aspirin, motrin, Advil, Aleve, Ibuprofen, Naproxyn. Tylenol is OK. 7. She needs to purchase the Celebrate multivitamins from the hospital's coffee shop. 8. Will do basic preop blood work-up any day between Saturday11/09/24 and Saturday11/13/24 fasting for 12 hours and is scheduled to see the Anesthesiologist prior to the day of surgery. 9. Importance of adherence to postop folllow-up and recommendations was underscored and she understands that. 10. Stop food and bars as of tomorrow 11/05/24 and continue with 5 Premier powdered protein shakes (ONE scoop EACH in 8oz lactaid milk) at 7am-9am, 10am-12pm, 1pm-3pm, 4pm-6pm and at 7pm-9pm 11. No soups, broths or V8 12. The patient's medical history has been reviewed and they are considered low risk for post op DVT and therefore DVT prophylaxis is not considered necessary. Travel after surgery was reviewed. The patient has not disclosed any travel plans during the first 30 days after surgery and they have been advised that within the first 30 days after surgery any bus, plane, train or car travel over 2 hours in duration is contraindicated due to the possibility of developing blood clots from immobility. Any travel, needs to include periods of ambulation of 10 minutes in duration every 2 hours. Patient was instructed to discuss any plans for travel during this period with their bariatric surgeon. 13. Please take at the day of surgery the following medications: NONE 14. Stop any control pills and don't use them for one month after surgery 15. Absolutely no smoking or vaping, or marijuana until the surgery and for at least the first 4 weeks. Only nicotine patches are allowed. 16. Send me weight measurements on Tuesday 11/06 and 11/13 and then on 11/19/24 the day of surgery before you go to the hospital. 17. Avoid any steroids by mouth for any reason. Let me know if someone prescribes them to you 18. These instructions supersede anything else you read in the handbook, anything you watched in videos or classes or you were told by any other provider. If there is any conflict, you follow the above instructions and nothing else. Orders: Orders TSH reflex Free T4 Today E66.01 - Morbid (severe) obesity due to excess calories Prothrombin Time INR Today E66.01 - Morbid (severe) obesity due to excess calories Lipid Panel Today E66.01 - Morbid (severe) obesity due to excess calories Comprehensive Met. Panel Today E66.01 - Morbid (severe) obesity due to excess calories C Reactive Protein Today E66.01 - Morbid (severe) obesity due to excess calories Insulin Today E66.01 - Morbid (severe) obesity due to excess calories Type and Screen Today E66.01 - Morbid (severe) obesity due to excess calories Hemoglobin A1c Today E66.01 - Morbid (severe) obesity due to excess calories Partial Thromboplastin Time Today E66.01 - Morbid (severe) obesity due to excess calories Complete Blood Count Auto Diff Today E66.01 - Morbid (severe) obesity due to excess calories Medications: New sucralfate 10 mL PO BID 600 mL 2RF K21.9 - Gastro-esophageal reflux disease without esophagitis pantoprazole 40 mg PO DAILY 90 tabs 0RF K21.9 - Gastro-esophageal reflux disease without esophagitis ondansetron Only take one every 12 hours as needed if you have nausea 4 mg PO Q12H 20 tabs 0RF nausea and vomiting R11.0 - Nausea polyethylene glycol 3350 17 grams PO DAILY 238 grams 0RF Z01.818 - Encounter for other preprocedural examination
[2024-11-04 15:59] VITALS: BMI 42.1
== END 2024-11-04 16:26 | disposition home or self-care (01) ==
LOC: HO.HBS 08:39
PROVIDERS: PCP Physician Assistant Medical; Visit Provider Surgery
DX: E66.01 Morbid (severe) obesity due to excess calories (principal)
CPT/HCPCS: 99499

== ENCOUNTER → 2024-11-04 08:39 | Outpatient (BNVA) | payer OTHER, SELFPAY | PROVIDERS: PCP Physician Assistant Medical; Visit Provider Surgery ==

== ENCOUNTER 2024-11-09 08:51 | Outpatient (REF) | payer OTHER, SELFPAY ==
[2024-11-09 09:49] LABS: MANUAL DIFF FLAG NO
[2024-11-09 10:04] LABS: INTERNATIONAL NORM RATIO 1.2 (0.9-1.1); Prothrombin Time 14.3 SEC (10.9-12.4)
[2024-11-09 10:06] LABS: Partial Thromboplastin Time 33.3 SEC (26.0-36.8)
[2024-11-09 10:31] LABS: Basophils Absolute Auto 0.1 X10*3/uL (0.0-0.2); Basophils Percent Auto 0.7 % (0-2); Eosinophils Absolute Auto 0.1 X10*3/uL (0.0-0.4); Hematocrit 47.5 % (42.0-52.0); Hemoglobin 15.5 g/dl (14.0-18.0); Imm Gran Abs Auto 0.02 X10*3/uL (0.00-0.03); Imm Gran Pct Auto 0.3 % (0.0-0.4); Lymphocytes Absolute Auto 2.4 X10*3/uL (1.2-4.9); Mean Corpuscular HGB Conc 32.6 g/dl (31.0-36.0); Mean Corpuscular Volume 85.9 fL (80.0-98.0); Mean Platelet Volume 9.6 fL (9.4-12.4); Monocytes Absolute Auto 0.7 X10*3/uL (0.1-1.2); Monocytes Percent Auto 10.4 % (2-11); Neutrophils Absolute Auto 3.5 x10*3/uL (2.0-8.3); Neutrophils Percent Auto 52.6 % (45-73); Platelet Count 305 X10*3/uL (160-400); Red Blood Count 5.53 X10*6/uL (4.60-5.80); Red Cell Distribution Width 13.2 % (11.0-16.0); White Blood Count 6.7 X10*3/uL (4.8-10.8)
[2024-11-09 10:48] LABS: Estimated Average Glucose 97 mg/dL; Hemoglobin A1C 118.6641 umol/L; Total Hemoglobin (HGBA1C) 3876.2603 umol/L
[2024-11-09 11:01] LABS: Alanine Aminotransferase 20 U/L (0-40); Albumin Level 4.2 g/dL (3.5-5.0); Alkaline Phosphatase 77 U/L (39-117); Anion Gap 12 (12-20); Aspartate Amino Transferase 27 U/L (5-37); Bilirubin Total 0.8 mg/dL (0.0-1.0); Blood Urea Nitrogen 13 mg/dL (9-16); Calcium 9.6 mg/dL (8.4-10.2); Carbon Dioxide 26 mmol/L (22-29); Chloride 104 mmol/L (96-108); Cholesterol 171 mg/dL (<200); Estimated Glomerular Filt Rate > 60; Glucose Random 75 mg/dL (60-115); HDL Cholesterol 40 mg/dL (>40); LDL Cholesterol Calculated 113 mg/dL (<100); Potassium 4.1 mmol/L (3.3-5.1); Sodium 138 mmol/L (135-145); Total Protein 8.3 g/dL (6.5-8.0); Triglycerides 91 mg/dL (<150)
[2024-11-09 11:45] LABS: Insulin 13 uU/mL (2-29)
== END 2024-11-09 08:52 | disposition home or self-care (01) ==
LOC: HO.LAB 08:51
PROVIDERS: PCP Physician Assistant Medical; Visit Provider Surgery
DX: E66.01 Morbid (severe) obesity due to excess calories (principal)
CPT/HCPCS: 36415; 80053; 80061; 83036; 83525; 84443; 85025; 85610; 85730; 86140; 86850; 86900; 86901

== ENCOUNTER 2024-11-12 08:36 | Outpatient (AMB) | payer OTHER, SELFPAY ==
--- NOTE | 2024-11-12 08:39 | MHC.PC.OV ---
Vital Signs 11/12/24 08:43 Height 5 ft 10 in Weight 300 lb BMI 43.0 BP 120/72 Blood Pressure Location Lt brachial Position Sitting Respiration 13 Pulse 96 Pulse Source Pulse Oximeter Temp 98.3 F Temp Source Oral Pulse Oximetry (%) 100 Oxygen Delivery Method Room Air Intake Visit Reasons: PE Intake Note: annual physical [employer] Required: No Allergies animal dander Allergy (Intermediate, Verified 11/12/24 08:40) Itchy Eyes lactose Allergy (Mild, Verified 11/12/24 08:40) Flatulence house dust Adverse Reaction (Intermediate, Verified 11/12/24 08:40) Sneezing Tobacco use date assessed: 02/18/24 Dental Screening Dental Screen Date: 11/12/24 Did you have a dental visit in the last 12 months?: Yes Did you have a dental problem in the last 6 months where you did not have access to dental care?: No Was dental information given to patient?: Patient has dentist HPI HPI Comments History of Present Illness Details The patient is a 24-year-old male presenting for his physical exam. The patient has a history of obesity, asthma, vitamin D deficiency, and vitamin B1 deficiency. The patient successfully reduced weight from 330 pounds to 298 pounds. Dietary management includes protein shakes and bars. The patient also reported a post-endoscopy cough that persisted for about a month, treated successfully with Tessalon Perles. His upcoming bariatric surgery (gastric sleeve) is planned for November 19 to address ongoing obesity challenges. He had an endoscopy and was subsequently treated for H pylori infection and had a negative breath test to confirm eradication. Patient overdue for Tdap vaccine which is administered today. He defers flu vaccine today. The patient has no new reports of asthmatic episodes, hospital visits, or emergency room interventions since his last medical encounter. He has not required his rescue inhaler recently. Patient was informed and verbally consented to the use of an ambient scribe for clinic note documentation during this visit. He is going to schedule an eye exam and dental exam in 2024 following changes to his insurance. He is agreeable to STI screenings today including HIV testing. ROS: Constitutional: No unexplained weight loss, fever, chills, fatigue or night sweats. Eyes: No vision changes, blurry vision, double vision, eye pain, eye redness, eye discharge. ENT: No hearing loss, sneezing, congestion, runny nose or sore throat. Respiratory: No shortness of breath, cough or sputum production. Cardiovascular: No chest pain, chest pressure or chest discomfort. No palpitations or pedal edema. Gastrointestinal: No anorexia, nausea, vomiting or diarrhea. No abdominal pain or blood in stool. Genitourinary: No dysuria, hematuria, urinary frequency. Denies testicular/groin swelling, masses or pain. Neurologic: No headache, dizziness, syncope, unilateral weakness, ataxia, numbness or tingling in the extremities. Musculoskeletal: No muscle pain, back pain, joint pain or swelling. Hematologic/Lymphatics: No bleeding or bruising. No painful lymph nodes. Skin: No rash or itching. Endocrine: No cold or heat intolerance. No polyuria or polydipsia. Psychiatric: No depression or anxiety. No SI/HI. Physical exam: Constitutional: Alert, in no distress. Head: Normocephalic. Eyes: Pupils are equal, round and reactive to light. Extraocular muscles intact. Ear, Nose and Throat: Canals clear. TMs normal. Normal nasal mucosa. No nasal discharge. No oral lesions. Neck: Supple, Full range of motion. No lymphadenopathy. No palpable thyroid masses. Respiratory: Clear to auscultation. Cardiovascular: S1 S2 regular. No murmurs. Gastrointestinal: Abdomen soft, non-tender, non-distended. Normal bowel sounds. No palpable masses. Genitourinary: Patient deferred exam. Neurologic: No focal neurological deficits. Symmetric patellar reflexes. Moves all extremities spontaneously. Sensation intact bilaterally. Skin: No rashes or lesions. Musculoskeletal: No gross deformities. Normal range of motion. Extremities: Warm and well perfused. No clubbing, cyanosis or edema. 3+ peripheral pulses bilaterally. Psychiatric: Normal mood and affect [facility] Medical History (Updated 11/12/24 @ 09:25 by ALEXYS Iglesias) Routine physical examination Bowel disease, inflammatory Morbid obesity Sinusitis Seasonal allergies Obesity Asthma Surgical History (Updated 11/03/24 @ 15:47 by Angeles Mccoy RN) History of esophagogastroduodenoscopy (EGD) H/O wisdom tooth extraction Family History Mother High blood pressure Diabetes Thyroid disorder Father Asthma Social History Housing: Apartment Housing Other:: 3 family home Are you a primary child care assistant to a significant other at home: No Do you presently have visiting nurse or other home services: No Alcohol intake: current Alcohol intake frequency: holidays/special occasions only Patient Tobacco Use Status: Former Tobacco user e-Cigarette/Vaping Use: Currently Using service: No Current occupational status: employed 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 1. Little interest or pleasure in doing things: not at all 2. Feeling down, depressed, or hopeless: not at all 3. Trouble falling or staying asleep, or sleeping too much: not at all 4. Feeling tired or having little energy: not at all 5. Poor appetite or overeating: not at all 6. Feeling bad about yourself - or that you are a failure or have let yourself or your family down: not at all 7. Trouble concentrating on things, such as reading the newspaper or watching television: not at all 8. Moving or speaking so slowly that other people could have noticed. Or the opposite - being so fidgety or restless that you have been moving around a lot more than usual: not at all 9. Thoughts that you would be better off or of hurting yourself in some way: not at all Total score: 0 [id number] - PHQ-9 Billing: Yes Source: Developed by Drs. Brandon Levin, Felicia Hernández, John Oliver and colleagues, with an educational papi from [employer]. Thrive Questionnaire Date Thrive assessed: 11/12/24 I am a: Patient What is your living situation today?: I have a steady place to live Within the past 12 months, did the food you bought not last and you didn't have the money to get more?: Never true Within the past 12 months, did you worry whether your food would run out before you got money to buy more?: Never true Do you have trouble paying for medicines?: No Do you have trouble getting transportation to medical appointments?: No Do you have trouble paying your heating and electricity bill?: No Do you have trouble taking care of your child, family member or friend?: No Do you have trouble with day-to-day activities such as bathing, preparing meals, shopping, managing finances, etc.?: No Are you currently unemployed and looking for a job?: No Are you interested in more education?: No Please select the resources that you would like help with: None Currently or been in a relationship where the following occur: No concerns reported THRIVE Score: 0 PALMER-7 AMB Questionnaire PALMER-7 Date PALMER - 7 assessed: 11/12/24 Feeling nervous, anxious, or on edge: 0 = Not at all Not being able to stop or control worryin = Not at all Worrying too much about different things: 0 = Not at all Trouble relaxin = Not at all Being so restless that it is hard to sit still: 0 = Not at all Becoming easily annoyed or irritable: 0 = Not at all Feeling afraid as if something awful might happen: 0 = Not at all Total PALMER-7 score (0-4 normal; 5-9 mild; 10-14 moderate; 15-21 severe): 0 Source: Developed by Drs. Brandon Levin, Felicia Hernández, John Oliver and colleagues, with an educational papi from [employer]. PALMER-7 Assessment Billing PALMER-7 Assessment Tool: PALMER-7 Assessment 70850 Physical exam (Primary Care) Vital Signs: Last Vital Signs Temp 98.3 F 11/12/24 08:43 Pulse 96 11/12/24 08:43 Resp 13 11/12/24 08:43 BP 120/72 11/12/24 08:43 Pulse Ox 100 11/12/24 08:43 Oxygen Delivery Method Room Air 11/12/24 08:43 BMI result Body Mass Index 43.0 Tobacco/Smoking Status: Tobacco use Status Tobacco use date assessed 02/18/24 11/12/24 08:46 Patient Tobacco Use Status Former Tobacco user 11/12/24 08:46 e-Cigarette/Vaping Use Currently Using 11/12/24 08:46 PHQ-9: PHQ-9 Score PHQ-9: Total score 0 11/12/24 08:59 Thrive Assessment: Date of Thrive Assessment Date Thrive assessed 11/12/24 11/12/24 08:46 Currently or been in a relationship where the following occur: No concerns reported Coding Level of Care Code Est Pt Prev Care 18-39y(50403) Diagnoses Routine physical examination Z00.00 Additional Codes PALMER-7 Assessment Billing - PALMER-7 Assessment Tool: PALMER-7 Assessment 27001 ([id number]) PHQ-9 - 30379 - PHQ-9 Billing: Yes ([id number]) Assessment & Plan Assessment & Plan (1) Routine physical examination: Code(s): Z00.00 - Encounter for general adult medical examination without abnormal findings Category: Medical Plan Patient is seen today for a routine physical. As part of this visit we reviewed the following issues, which are considered and essential part of preventative health in this age group: - Testicular cancer screening, which includes self exam teaching - Blood pressure screening - Cholesterol screening - Nutritional and exercise counseling - Counseling of injury prevention including fire prevention, smoke alarms and seat belt usage - Screening for depression - Prevention of and/or testing for infectious diseases - Education about skin cancer - Recommendations about immunizations - Recommendation of an eye exam - Screening for substance abuse - Genetic cancer risk screening Return in 1 year for a physical exam. Orders: Orders Syphilis Screen Today Z20.2 - Contact with and (suspected) exposure to infections with a predominantly sexual mode of transmission TDaP Immunization Today Z23 - Encounter for immunization HIV Ab/Ag Today Z20.2 - Contact with and (suspected) exposure to infections with a predominantly sexual mode of transmission CT NG by PCR Today Z20.2 - Contact with and (suspected) exposure to infections with a predominantly sexual mode of transmission Hepatitis C Antibody Today Z20.2 - Contact with and (suspected) exposure to infections with a predominantly sexual mode of transmission Medications: New Boostrix Tdap (diphth,pertus(acell),tetanus) 0.5 mL IM ONCE 0.5 mL 0RF NS Z23 - Encounter for immunization
[2024-11-12 08:43] VITALS: BP 120/72; PULSE 96; RESP 13; TEMP 36.8; O2SAT 100; BMI 43.0
== END 2024-11-12 09:12 | disposition home or self-care (01) ==
PROVIDERS: PCP Physician Assistant Medical; Visit Provider Physician Assistant Medical
DX: Z23 Encounter for immunization (principal); Z00.00 Encounter for general adult medical examination without abnormal findings

== ENCOUNTER → 2024-11-12 08:36 | Outpatient (BNVA) | payer OTHER, SELFPAY | PROVIDERS: PCP Physician Assistant Medical; Visit Provider Physician Assistant Medical | DX: Z00.00 Encounter for general adult medical examination without abnormal findings (principal); Z23 Encounter for immunization; E66.9 Obesity, unspecified; Z68.41 Body mass index [BMI] 40.0-44.9, adult; J45.909 Unspecified asthma, uncomplicated; E55.9 Vitamin D deficiency, unspecified; E51.9 Thiamine deficiency, unspecified | CPT/HCPCS: 90471; 90715; 96127; 99395 ==

== ENCOUNTER 2024-11-19 07:54 | Inpatient (IN) | payer OTHER, SELFPAY ==
[2024-11-05 09:53] VITALS: BMI 42.2
--- NOTE | 2024-11-17 09:36 | P.CONAN_ITS ---
Documented by User: Suzette Zavala NP 11/17/24 09:37 HPI - Anesthesia Eval Consult details Narrative: 24yo M for Gastrectomy Sleeve,EGD,possibel Diaphragmatic Hernia,possible Ventral Hernia,possible Open PMFSH Active Problems Active Problems: All Active Problems Routine physical examination (Acute) Vitamin B1 deficiency (Acute) H. pylori infection (Acute) Vitamin D deficiency (Acute) Normal physical examination, routine (Acute) Laboratory tests ordered as part of a complete physical exam (CPE) (Acute) Morbid obesity (Acute) Obesity (Acute) Asthma (Acute) Past Medical History Medical History Routine physical examination Bowel disease, inflammatory Morbid obesity Sinusitis Seasonal allergies Obesity Asthma Family History Family History Mother High blood pressure Diabetes Thyroid disorder Father Asthma Surgical History Surgical History History of esophagogastroduodenoscopy (EGD) H/O wisdom tooth extraction History of Problems with Anesthesia: No Social History Social History Housing: Apartment Housing Other:: 3 family home Are you a primary primary health care nurse to a significant other at home: No Do you presently have visiting nurse or other home services: No Alcohol intake: current Alcohol intake frequency: holidays/special occasions only Patient Tobacco Use Status: Former Tobacco user e-Cigarette/Vaping Use: Currently Using Use of substances other than those prescribed or required for medical reasons: No Have you been hit, kicked, punched, or otherwise hurt by someone within the past year? If so, by whom?: No Spiritual Healthcare Practices: none [facility] Practices: Spiritism Cultural Healthcare Practices: none Are you DNR?: No Advance Directives: No Advance Directives on File: No Recently lost weight without trying: No Eating poorly because of decreased appetite: No Nutrition Risks: No Nutritional Risk Poor oral hygiene: No service: No Current occupational status: employed Current occupation: [employer] Cognitive needs: No Hearing needs: No Vision needs: No Meds Allergies Allergy/AdvReac Type Severity Reaction Status Date / Time animal dander Allergy Intermediate Itchy Eyes Verified 11/19/24 08:09 lactose Allergy Mild Flatulence Verified 11/19/24 08:09 house dust AdvReac Intermediate Sneezing Verified 11/19/24 08:09 Home Medications ?Medication ?Instructions ?Recorded ?Confirmed ?Last Taken ?Type fexofenadine 180 mg tablet 180 mg PO DAILY 11/07/23 11/04/24 Unknown History (Staci Allergy) oxymetazoline 0.05 % nasal spray 2 spray intranasal Q12H PRN 11/07/23 11/04/24 Unknown History (Afrin (oxymetazoline)) Allergic Symptoms multivitamin 1 tab PO DAILY 06/19/24 11/04/24 11/17/24 History Exam Height,Weight and Vital Signs: Height 5 ft 10 in Weight 133.356 kg Pertinent Lab Results Pertinent Lab Results: Laboratory Tests 11/09/24 09:37 Blood Type O Positive Antibody Screen NEGATIVE Laboratory Tests 11/09/24 09:42 WBC 6.7 Hgb 15.5 Hct 47.5 Plt Count 305 Sodium 138 Potassium 4.1 Chloride 104 Carbon Dioxide 26 BUN 13 Creatinine 1.04 Narrative Narrative: EKG 07/2024 Vent. Rate : 057 BPM Atrial Rate : 057 BPM P-R Int : 166 ms QRS Dur : 096 ms QT Int : 400 ms P-R-T Axes : 022 008 005 degrees QTc Int : 389 ms Sinus bradycardia with marked sinus arrhythmia Otherwise normal ECG No previous ECGs available Assessment and Plan Assessment Anesthesia Assessment: Chart Reviewed Final Anesthetic Review History of Problems with Anesthesia: No Documented by User: Corrie Hoang MD 11/19/24 11:51 HPI - Anesthesia Eval Consult details Narrative: 24yo M for EGD, Laparoscopic Sleeve Gastrectomy, possible Diaphragmatic Hernia repair, possible Ventral Hernia repair, possible Open PMFSH Active Problems Active Problems: All Active Problems Routine physical examination (Acute) Vitamin B1 deficiency (Acute) H. pylori infection (Acute) Vitamin D deficiency (Acute) Normal physical examination, routine (Acute) Laboratory tests ordered as part of a complete physical exam (CPE) (Acute) Morbid obesity BMI 42.1 Asthma (Acute) Rarely needs inhaler Snores but denies VINNY. Never tested Vapes. Last 2 days ago Past Medical History Medical History Routine physical examination Bowel disease, inflammatory Morbid obesity Sinusitis Seasonal allergies Obesity Asthma Family History Family History Mother High blood pressure Diabetes Thyroid disorder Father Asthma Family history of problems with anesthesia: No Surgical History Surgical History History of esophagogastroduodenoscopy (EGD) H/O wisdom tooth extraction History of Problems with Anesthesia: No Social History Social History Housing: Apartment Housing Other:: 3 family home Are you a primary primary health care nurse to a significant other at home: No Do you presently have visiting nurse or other home services: No Alcohol intake: current Alcohol intake frequency: holidays/special occasions only Patient Tobacco Use Status: Former Tobacco user e-Cigarette/Vaping Use: Currently Using Use of substances other than those prescribed or required for medical reasons: No Have you been hit, kicked, punched, or otherwise hurt by someone within the past year? If so, by whom?: No Spiritual Healthcare Practices: none [facility] Practices: Spiritism Cultural Healthcare Practices: none Are you DNR?: No Advance Directives: No Advance Directives on File: No Recently lost weight without trying: No Eating poorly because of decreased appetite: No Nutrition Risks: No Nutritional Risk Poor oral hygiene: No service: No Current occupational status: employed Current occupation: [employer] Cognitive needs: No Hearing needs: No Vision needs: No Meds Allergies Allergy/AdvReac Type Severity Reaction Status Date / Time animal dander Allergy Intermediate Itchy Eyes Verified 11/19/24 08:09 lactose Allergy Mild Flatulence Verified 11/19/24 08:09 house dust AdvReac Intermediate Sneezing Verified 11/19/24 08:09 Home Medications ?Medication ?Instructions ?Recorded ?Confirmed ?Last Taken ?Type fexofenadine 180 mg tablet 180 mg PO DAILY 11/07/23 11/04/24 Unknown History (Staci Allergy) oxymetazoline 0.05 % nasal spray 2 spray intranasal Q12H PRN 11/07/23 11/04/24 Unknown History (Afrin (oxymetazoline)) Allergic Symptoms multivitamin 1 tab PO DAILY 06/19/24 11/04/24 11/17/24 History Exam Height,Weight and Vital Signs: Height 5 ft 10 in Weight 133.356 kg Vital Signs Temp Pulse Resp BP Pulse Ox O2 Del Method 11/19/24 08:26 98.2 F 75 18 139/74 99 Room Air Pertinent Lab Results Pertinent Lab Results: Laboratory Tests 11/09/24 09:37 Blood Type O Positive Antibody Screen NEGATIVE Laboratory Tests 11/09/24 09:42 WBC 6.7 Hgb 15.5 Hct 47.5 Plt Count 305 Sodium 138 Potassium 4.1 Chloride 104 Carbon Dioxide 26 BUN 13 Creatinine 1.04 Airway Mallampati Class: II TM Dist: >3cm Neck ROM: Full Loose/Missing/Broken Teeth: No (No extraction. In process of getting crowns) Heart: RRR Lungs: CTAB Assessment and Plan Assessment Anesthesia Assessment: Anesthesia Plan Discussed and Chart Reviewed Final Anesthetic Review Family History of Problems with Anesthesia: No History of Problems with Anesthesia: No NPO: Yes ASA Class: III Final Preanesthetic Review: No Changes in Pt Med Stat, Meds/Allgs Chart Reviewed, Consent Obtained/Reviewed and Anes Risks/Benef Reviewed Patient Risk: Intermediate Procedure Risk: Intermediate Assessment/Block/Sedation in SS: Assess/Block/Sedation-SS Anesthetic Plan Anesthetic Plan: GA Disposition: Standard PACU and Inp. Admit - Standard Bed
[2024-11-19] VITALS (12 sets, daily range): BP systolic 134–163; BP diastolic 74–94; PULSE 62–97; RESP 16–26; TEMP 36.1–36.8; O2SAT 93–99; BMI 42.1; BMI 44.3
[2024-11-19] MEDS: Lactated Ringers 1,000 ML 100 ML IVCONT ×3 (08:15→23:50)
[2024-11-19] MEDS: Lactated Ringers 1,000 ML 999 ML IV (08:16)
[2024-11-19] MEDS: Aprepitant 32 MG/4.4 ML VIAL IVPUSH (08:35)
--- NOTE | 2024-11-19 10:05 | MHC.SHP ---
Pre-Procedural Eval Section A - 24 Hr Update-Section A only Date of Service: 11/19/24 The patient is an INPATIENT: Yes The patient has been examined within 24 hours of the surgical procedure. The History & Physical has been completed within 30 days and I have reviewed it.: Yes Section B - Complete if H&P > 30 days Chief Complaint: Morbid obesity Relevant Family History (Specify if Yes): No Relevant Social History: None Present Medications: None Medical History: No relevant PMH History of Previous Operations: No relevant previous surgery Allergies: Allergies Allergy/AdvReac Type Severity Reaction Status Date / Time animal dander Allergy Intermediate Itchy Eyes Verified 11/19/24 08:09 lactose Allergy Mild Flatulence Verified 11/19/24 08:09 house dust AdvReac Intermediate Sneezing Verified 11/19/24 08:09 Review of Systems Sugical H&P ROS: Negative: Constitution, Cardiovascular, Respiratory, Neurological, Psychiatric, Hem-Onc, Allergic/Immunologic, Gastrointestinal, Genitourinary, Musculoskeletal, Integumentary, Endocrine and Eyes/Ears/Nose/Throat Exam Surgical H&P Exam: Normal: HEENT, Normal: Heart, Normal: Lungs, Normal: Extremities, Normal: Abdomen, Normal: Skin and Normal: Neurological Plan Diagnosis/Plan: Unchanged I have reviewed the history and physical and performed a pertinent physical examination on my patient. No changes have occurred unless specified. Time Spent With Patient Time: Total time managing care of this patient today ____ minutes.
--- NOTE | 2024-11-19 10:11 | P.BOP_ITS ---
Brief Operative Note Date of Service: 11/19/24 Pre-op diagnosis: Morbid obesity with comorbidities (see below) Post-op diagnosis: same (& congenital abdominal adhesions) Procedure: INITIAL PATIENT BMI ON PRESENTATION AT OUR OFFICE: 46 kg/m2 LAST BMI BEFORE SURGERY: 42.3 kg/m2 COMORBIDITIES: asthma, liver steatosis, GERD ?The patient presented to the Weight Management Program with significant obesity that was negatively impacting the patient's comorbidities as listed above.? The program is a phased program with a special focus on preoperative medical weight management to promote substantial weight loss and prepare the patients for the second phase of the program: bariatric surgery. The patient participated in an intensive weekly lifestyle ?intervention and exercise program during which the patient ?has lost between the initial office visit and the last preoperative visit 32 lbs, or 8.8% of initial actual body weight. It was deemed appropriate for the patient to now have bariatric surgery. In light of the current Covid-19 pandemic and the well documented strong association of obesity and increased risk of worse outcomes if infected with Covid-19 (REFERENCES: https://pubmed.ncbi.nlm.nih.gov/65562870/ ,? https://pubmed.ncbi.nlm.nih.gov/84966412/ ), any delay in undergoing bariatric surgery may lead to the patient's worsening health condition and increased?risk of more severe Covid-19 disease if infected. In addition a recent?study from [facility] published in [facility] [employer] on 11/13/2021 ([email or web address]) found that, among patients with obesity, substantial weight loss achieved with surgery was associated with improved outcomes of COVID-19 infection. The findings suggest that obesity can be a modifiable risk factor for the severity of COVID-19 infection. In addition, the patient met the BMI-criteria for bariatric surgery based on the BMI on initial presentation. The patient should not be penalized for achieving such weight loss because ?it is not sustainable long-term without surgical intervention and it was achieved in preparation for bariatric surgery ?under my direction and based on my published research ([email or web address]).[email or web address] and? https://www.soard.org/article/I1907-9478(93)14732-X/pdf ) ?that a 10% preoperative weight loss improves long-term weight loss after surgery and reduces perioperative complications.? Insurance carriers such as [facility] have endorsed my recommendations ?and have included in their policies criteria to include a 10% preoperative weight loss requirement. PROCEDURE: Esophago-gastroscopy, laparoscopic lysis of adhesions, laparoscopic sleeve gastrectomy and laparoscopic gastropexy INDICATIONS: This is a 24 year-old male who was electively scheduled for laparoscopic, possibly open sleeve gastrectomy. The risks and complications of the procedure were discussed with the patient in advance, particularly the possibility of ; pulmonary embolism; staple line leak; bleeding; GERD; cardiac, pulmonary, or renal complications; as well as long-term problems such as insufficient weight loss, vitamin deficiency, strictures, or ulcers. The patient understood all the risks, and was in agreement to proceed with surgery. DESCRIPTION OF PROCEDURE: After informed consent was obtained from the patient, the patient was given preoperative antibiotics, and was transferred to the operating room. After successful induction of general anesthesia, pneumatic compression devices were placed on both lower extremities. An upper endoscopy was performed next. The oropharynx and esophagus appeared to be within normal limits. There was no diaphragmatic hernia present consistent with the findings of the preoperative upper GI. The stomach was entered. Then after all fluid and air were suctioned and the stomach was fully decompressed, the scope was withdrawn and secured in the mid esophagus. The patient was then prepped and draped in the usual sterile manner, and abdominal access was established at the right upper quadrant with the Christina technique. A 12 mm blunt port was inserted, and the abdomen was insufflated with CO2 to a pressure of 15 mmHg. Under direct visualization, additional ports were placed, specifically two 5 mm Versi-step ports to the left upper quadrant, and a 5 mm Versi-Step port to the right upper quadrant. 1% lidocaine plain was used to infiltrate all port sites as well as all fascia defects. Using the EndoClose suture passer device, I placed a #1 Polysorb tie across the falciform ligament in order to retract it up against the abdominal wall and prevent injury of the ligament with our instruments during the procedure. Following that, the patient was placed in a steep reverse Trendelenburg position. An additional 5 mm port was placed to the right flank for the Mediflex retractor that was used to retract the left lobe of the liver. The gastro-esophageal fat pad was opened with the ultrasonic device (Thunderbeat, Olympus) and the anterior esophagus and hiatus were exposed. The angle of His was opened with the ultrasonic device the fundus of the stomach from any diaphragmatic and splenic attachments. I then opened the gastrocolic ligament between the transverse colon and the greater curvature of the stomach with the ultrasonic device to enter the lesser sac and facilitate the ligation of the short gastric vessels. I started at a mid-point along the greater curvature and using the Thunderbeat, all short gastric vessels were divided all the way to the angle of His until the left hardik was completely dissected at its entirety. I then divided the gastro-colic ligament distally to a distance of about 3-4 cm proximal to the pylorus. There were extensive congenital adhesions between the pancreas and posterior gastric wall. Those were lysed completely with the ultrasonic device. Adhesiolysis took approximately 45 min to complete. The stomach was then divided transversely with three Endo ANNA MARIE-45 purple and three ANNA MARIE-60 articulating purple loads using the [employer] stapler and loads. Every effort was made that the gastric sleeve had a tubular shape and an even caliber throughout. Once the sleeve resection was completed, the staple line of the gastric sleeve was reinforced with Hemoclips. The resected stomach was retrieved without difficulty from the Christina port. A gastropexy was then performed in order to prevent postoperative GERD and partial gastric volvulus. Several interrupted 2.0 Surgidac sutures were placed between the sleeve's staple line and the previously divided greater omentum and gastro-colic ligament using the Endo-Stitch device. ?An upper endoscopy was performed. There was no narrowing at the GE junction. The scope was easily advanced all the way to the pylorus which was clearly visualized. There was no narrowing anywhere and the sleeve's caliber was even throughout. The sleeve's staple line was inspected and there was no evidence of ischemia, bleeding or dehiscence. At that point the gastroscope was withdrawn from the patient?s mouth while we were decompressing the bowel and the stomach from any remaining air. I looked into the lesser sac to see how the sleeve was situating and it was situating well. There was no bleeding from the staple line, spleen, or short gastric vessels. The Mediflex retractor was removed, and the undersurface of the liver was inspected and there was no bleeding. The patient was placed in supine position. I closed the fascial defect of the 12 mm port site with a figure of eight #1 Polysorb suture. Then 30cc Ropivacaine plain with 10 mg of Dexamethasone were used to infiltrate the fascial closure as well as all skin incisions. At this point, the abdomen was deflated, all ports were removed under direct vision, and no bleeding was noted from any of the port sites. The skin incisions were irrigated with saline and were closed with 4-0 absorbable monofilament sutures. Steri-Strips and OpSites were used to cover all incisions. The patient was extubated and was transferred in stable condition to the recovery room for further care. I was present and performed all freed parts of the procedure. Mr. Sim was the administrative office assistant. There were no residents to assist with this case. Everardo Schmidt MD, PhD, FACS Surgeon: Ryan Schmidt MD Anesthesia: GETA, local and other (TAP block) Was an Vamp Strap Ironer used for this Procedure?: Yes Vamp Strap Ironer: Ismael Sim Estimated blood loss (mL): 10 IV fluids (mL): 2,000 Urine output (mL): 0 (No Lozoya to record output) Pathology: other (1) Stomach, 2) gastro-esophageal fat pad) Condition: stable Disposition: PACU
--- NOTE | 2024-11-19 10:13 | P.PNGS_ITS ---
Subjective Subjective Date of Service: 11/20/24 Interval history: Feels well. Mild incisional pain. He is tolerating phase 1 bariatric diet Physical Exam 2 Vital Signs: Vital Signs: Last Vital Signs Temp 98.2 F 11/19/24 08:26 Pulse 75 11/19/24 08:26 Resp 18 11/19/24 08:26 BP 139/74 11/19/24 08:26 Pulse Ox 99 11/19/24 08:26 O2 Del Method Room Air 11/19/24 08:26 BMI result Body Mass Index 42.1 GI: Inspection: Yes normal to inspection, Yes incision (clean, dry and intact) and Yes obesity Palpation (GI): Soft to palpation Extrem: Right lower extremity: normal to inspection (no calf tenderness) L eft lower extremity: normal to inspection (no calf tenderness) Objective Data Active Medications Albuterol Sulfate (Albuterol Sulfate (0.083%) 2.5 Mg/3 Ml Vial.Neb) 2.5 mg INHALE ONCE PRN PRN Reason: Shortness of Breath/Wheezing Lactated Ringer's (Lr) 1,000 mls @ 100 mls/hr IVCONT .Q10H BRIT Last Admin: 11/19/24 08:15 Dose: 100 mls/hr Documented By: WILL Labs 11/20/24 05:23 11/20/24 05:23 Procedures Date of Service Date of Service: 11/20/24 Progress Note: A&P Assessment and plan (1) Morbid obesity: Status: Acute Assessment and Plan: s/p laparoscopic sleeve gastrectomy, lysis of adhesions and gastropexy Doing well Will check am labs and if OK the patient will be discharged home (2) Asthma: Status: Acute (3) GERD (gastroesophageal reflux disease): Status: Acute (4) Steatosis, liver: Status: Acute (5) Congenital intra-abdominal adhesions: Status: Acute (6) S/P laparoscopic sleeve gastrectomy: Status: Acute Time Spent With Patient Time: Total time managing care of this patient today ____ minutes. Quality Stroke Does the patient have a stroke diagnosis?: No VTE Prior VTE?: No VTE Risk Level:: Surgical - moderate VTE Device Contraindication: N/A - Device Ordered VTE Drug Contraindication: Treatment Not Indicated
--- NOTE | 2024-11-19 12:15 | PHA.MEDREC ---
Pharmacy Consult ? Medication Reconciliation Pharmacy has reviewed med rec done by nursing.
--- NOTE | 2024-11-19 12:56 | P.DS_ITS ---
<Statement entered by ALEXYS Cha - 11/24/24 10:06> discharge date 11/20/24 DS: Providers Provider Date of Service: 11/20/24 Date of admission: 11/19/24 07:54 Primary care physician: ALEXYS Iglesias DS: Diagnosis Discharge Diagnosis (1) Morbid obesity: Status: Acute (2) Asthma: Status: Acute (3) GERD (gastroesophageal reflux disease): Status: Acute (4) Steatosis, liver: Status: Acute DS: Summary Hospital Course Hospital Course: ADMITTING DIAGNOSIS: morbid obesity ? DISCHARGE DIAGNOSIS: same, s/p laparoscopic sleeve gastrectomy ? PAST SURGICAL HISTORY: none ? PROCEDURE: upper endoscopy, laparoscopic sleeve gastrectomy ? DISCHARGE SUMMARY: ? History of Present Illness: ? The patient is a?24 year-old male with a BMI of?46 kg/m2 and associated co- morbidities as described above. The patient had extensive work-up,lost?28.2 lbs preoperatively and was electively scheduled for laparoscopic, possible open sleeve gastrectomy and gastropexy. Risks and complications of the surgery were discussed with the patient in advance, particularly the possibility of , pulmonary embolism, anastomotic leak, bleeding, bowel injury, GERD, cardiac, renal or pulmonary complications. The patient understood all the risks and was in agreement with the surgical plan. ? Hospital Course: ? The patient underwent an uneventful laparoscopic sleeve gastrectomy with gastropexy on the day of admission. Postoperatively, the patient was transferred to the surgical floor. The patient received IV Acetaminophen and IV dilaudid for pain control. Patient was started on bariatric phase 1 diet POD #0. On postoperative day one, the patient was feeling well without nausea, vomiting, fevers, or tachycardia. The patient had some mild incisional pain and the abdomen was soft. ? On the morning of postoperative day one, the patient was continued on 1 ounce of water or ice every half hour. During the day, the patient did fairly well, having some incisional pain, but able to ambulate adequately and to tolerate liquids well. ? Since the patient is doing well, we decided that the patient was ready to be discharged. The patient was given instructions to follow-up with me next week and to call my office for any fever over 101, persistent abdominal pain, nausea, vomiting, GERD, symptoms of DVT such as calf tenderness, or leg swelling, or pulmonary embolism such as chest pain or shortness of breath. The patient was also instructed to drink 40-60 ounces of liquids per day using the 1-ounce cups. The patient had been given prescriptions for Tylenol for pain, Zofran prn for nausea, and pantoprazole and carafate previously. The patient was encouraged to ambulate and use the incentive spirometer. The patient was allowed to shower, but no baths, and encouraged to stay active at home. All of these instructions were given to the patient personally. All questions were answered and the patient understood all instructions, the instructions were also given to the patient in print. Time Attestation Total time managing care of this patient today: 25 mintues. Discharge Coordination Time (in mins): 25 Quality: Safe Use of Opioids Does Pt have an Active Cancer Diagnosis on the Problem List?: No Quality: Stroke Does the patient have a stroke diagnosis?: No Physical Exam Vital Signs: Vital Signs: Last Vital Signs Temp 98.2 F 11/19/24 08:26 Pulse 75 11/19/24 08:26 Resp 18 11/19/24 08:26 BP 139/74 11/19/24 08:26 Pulse Ox 99 11/19/24 08:26 O2 Del Method Room Air 11/19/24 08:26 BMI result Body Mass Index 42.1 DS: Data Data Completed and Pending Pending studies at discharge: Pending at discharge 11/19/24 12:10 Surgical [PTH] Routine Discharge Plan Discharge Anticipated Discharge Date/Time: 11/20/24 10:00 Patient Disposition: Home, Self-Care Discharge Diagnosis: s/p laparoscopic sleeve gastrectomy Referrals: Alejandra Odell PA [Primary Care Provider] - 1 Week Discharge Medications: Continued albuterol sulfate 90 mcg/actuation HFA aerosol inhaler 1 inh inhalation QID PRN (Reason: shortness of breath or wheezing) Qty: 8.5 0RF (DME) nebulizers [AeroEclipse II Nebulizer] Misc See Rx Instructions .ROUTE .MEDSUPPLY Qty: 1 0RF Rx Instructions: As directed albuterol sulfate 0.63 mg/3 mL solution for nebulization 0.63 mg inhalation QID PRN (Reason: shortness of breath or wheezing) Qty: 75 0RF fexofenadine [Staci Allergy] 180 mg tablet 180 mg PO DAILY oxymetazoline [Afrin (oxymetazoline)] 0.05 % spray,non-aerosol 2 spray intranasal Q12H PRN (Reason: Allergic Symptoms) pantoprazole 40 mg tablet,delayed release (DR/EC) 40 mg PO DAILY Qty: 90 0RF sucralfate 100 mg/mL suspension 10 ml PO BID Qty: 600 2RF ondansetron 4 mg tablet,disintegrating 4 mg PO Q12H Qty: 20 0RF Rx Instructions: Only take one every 12 hours as needed if you have nausea Discontinued cholecalciferol (vitamin D3) 125 mcg (5,000 unit) capsule 125 mcg PO DAILY Qty: 90 0RF thiamine HCl (vitamin B1) 100 mg tablet 100 mg PO DAILY Qty: 90 0RF multivitamin Tablet 1 tab PO DAILY Discharge Orders: Discharge Order (Routine); Ordered 11/20/24 Ordered By: Ismael Sim Activity on Discharge: No heavy lifting Stand Alone Forms: Patient Portal Discharge page Print Language: Citizen Of [place] Care Plan Goals: weight loss Health Concerns: morbid obesity Plan of Treatment: No tub baths, sex or returning to work until discussed at first post op appointment. No exercise, alcohol, tobacco or illegal drug use. Continue to use incentive spirometer hourly while awake. Walk in home for 5- 10 minutes every 2 hours during the first week. Follow all instructions in the bariatric handbook and call with any questions.Discharge Instructions 1. Please call your doctor or come back to the emergency room should any new symptoms arise. 2. You will receive a courtesy call from [facility] 24-48 hours after discharge. 3. Activity: abstain from alcohol, practice limited stair climbing, no bending, no driving, no exercise, no illicit substances, no lifting, no sex, no tub bath, no work. 4. Diet: continue as discussed with Dr. Schmidt. 5. Dressing Change/Wound Care: Your incision is covered by clear bandages and guaze underneath. If the area is tender, you may apply an ice pack for short intervals (no more than 20 minutes on, followed by at least 20 minutes off). Do not apply heat. Do not use creams, lotions, or topical antibiotics unless instructed to do so by your surgeon. These can cause infection or allergic reaction. 6. Call your doctor if: - Your temperature exceeds 101.5 F - You experience excessive pain or swelling - You have an unexpected reaction to medication - You have excessive bleeding - You experience continued vomiting/nausea - Your incision begins to separate - Your incision shows signs of infection such as increased redness, swelling, excessive pain, heat, or drainage (light blood or clear fluid is normal) 7. General instructions: No lifting greater than 5 lbs for 1 week and not more than 20lbs the next 3?weeks. No driving until seen at the office in 5-7 days after surgery. If you do not move your bowels in the next 2 days, please tell?Dr. Schmidt. Please walk around your home every hour or two to prevent blood clots from forming in your legs. You do not need to wake from sleeping to walk. Please sleep in a bed or couch to prevent kinking at the hips and knees. Please take your incentive spirometer (your lung manufacturing lab technician) home with you and use it for the next few days to prevent pneumonia. You may shower, no hot tubs, baths or swimming pools.?Please follow the post op diet instructions you are?given by Dr Schmidt? and text me daily at 5-6pm for an update.?If you have any issues or concerns or questions please communicate this to him via text.? The Celebrate shakes have all of the bariatric vitamins you need if you consume these shakes. If you are drinking other protein shakes, you will need to purchase the Celebrate multivitamins and calcium that are available in the hospital gift shop on the first floor of the main hospital.??Do not take anything without first discussing with Dr Schmidt. Please make sure you are consuming at least 40 ounces of fluids per day starting the?day AFTER your discharge from the hospital. Always drink 1-2 ml per minute using the 5ml?syringe. If you drink faster you may experience?bloating,?gas pain, burping, nausea or heartburn. In that case please slow down your pace and use the syringe to?understand better the?proper?pace and volume of drinking. Do not hesitate to contact the office with any questions at . The patient's medical history has been reviewed and they are considered low risk for post op DVT and therefore DVT prophylaxis is not considered necessary. Travel after surgery was reviewed. The patient has not disclosed any travel plans during the first 30 days after surgery and they have been advised that within the first 30 days after surgery any bus, plane, train or car travel over 2 hours in duration is contraindicated due to the possibility of developing blood clots from immobility. Any travel, needs to include periods of ambulation of 10 minutes in duration every 2 hours.? The patient was instructed to discuss any plans for travel during this period with their bariatric surgeon. Assessment: stable s/p laparoscopic sleeve gastrectomy Discharge Date/Time: 11/20/24 08:58
[2024-11-19 13:19] LABS: Hematocrit 42.7 % (42.0-52.0); Hemoglobin 14.5 g/dl (14.0-18.0)
[2024-11-19] MEDS: fentaNYL citrate/PF 100 MCG/2 ML VIAL 25 MCG IVPUSH (13:20)
[2024-11-19 13:32] LABS: Anion Gap 17 (12-20); Blood Urea Nitrogen 7 mg/dL (9-16); Calcium 9.1 mg/dL (8.4-10.2); Carbon Dioxide 21 mmol/L (22-29); Chloride 104 mmol/L (96-108); Creatinine Clr Calc Pharmacy 178.5; Estimated Glomerular Filt Rate > 60; Glucose Random 113 mg/dL (60-115); Potassium 4.3 mmol/L (3.3-5.1); Sodium 138 mmol/L (135-145)
[2024-11-19] MEDS: Acetaminophen 1,000 MG/100 ML PIGGYBACK 16.7 MG IV ×2 (14:19→20:05)
[2024-11-19] MEDS: ceFAZolin Sodium/Dextrose,Iso 2 GM/50 ML PIGGYBACK IV (15:54)
--- NOTE | 2024-11-19 16:22 | PC.NURSE ---
PT instructed on phase I diet and use of incentive spirometer . OOB to BR voided w/o difficulty . abd binder in use lap sites CDI . routine post op care
[2024-11-20] MEDS: Acetaminophen 1,000 MG/100 ML PIGGYBACK 16.7 MG IV (01:52)
[2024-11-20 04:00] VITALS: BP 139/82; PULSE 66; RESP 16; TEMP 36.3; O2SAT 98
[2024-11-20] MEDS: Pantoprazole Sodium 40 MG/10 ML VIAL IVPUSH (05:59)
[2024-11-20 06:59] LABS: MANUAL DIFF FLAG NO
[2024-11-20 07:09] LABS: Basophils Percent Auto 0.1 % (0-2); Hematocrit 41.1 % (42.0-52.0); Hemoglobin 13.7 g/dl (14.0-18.0); Imm Gran Abs Auto 0.04 X10*3/uL (0.00-0.03); Imm Gran Pct Auto 0.4 % (0.0-0.4); Lymphocytes Percent Auto 10.7 % (20-40); Mean Corpuscular HGB Conc 33.3 g/dl (31.0-36.0); Mean Platelet Volume 10.5 fL (9.4-12.4); Monocytes Absolute Auto 0.7 X10*3/uL (0.1-1.2); Monocytes Percent Auto 7.1 % (2-11); Neutrophils Absolute Auto 7.6 x10*3/uL (2.0-8.3); Neutrophils Percent Auto 81.7 % (45-73); Platelet Count 271 X10*3/uL (160-400); Red Blood Count 4.89 X10*6/uL (4.60-5.80); Red Cell Distribution Width 13.2 % (11.0-16.0); White Blood Count 9.3 X10*3/uL (4.8-10.8)
[2024-11-20 07:24] LABS: Anion Gap 15 (12-20); Blood Urea Nitrogen 6 mg/dL (9-16); Calcium 9.2 mg/dL (8.4-10.2); Carbon Dioxide 21 mmol/L (22-29); Chloride 105 mmol/L (96-108); Creatinine Clr Calc Pharmacy 185.9; Estimated Glomerular Filt Rate > 60; Glucose Random 90 mg/dL (60-115); Potassium 4.4 mmol/L (3.3-5.1); Sodium 137 mmol/L (135-145)
[2024-11-20 07:36] VITALS: BP 132/74; PULSE 55; RESP 16; TEMP 36.2; O2SAT 99
--- NOTE | 2024-11-20 08:54 | MHC.CM.PN ---
pt dcd prior to being seen by cm
--- NOTE | 2024-11-20 08:56 | MHC.CM.PN ---
pt dcd home self care pt dcd prior tobeing seen by cm
--- NOTE | 2024-11-20 10:50 | HO.POSTANES ---
Post Anesthesia Evaluation Post Anesthesia Evaluation Date of Service: 11/20/24 Vital Signs: Vital Signs Temp Pulse Resp BP Pulse Ox O2 Del Method 11/20/24 07:36 97.1 F 55 16 132/74 99 Room Air 11/20/24 04:00 97.4 F 66 16 139/82 98 Room Air 11/19/24 23:51 97.7 F 73 16 137/94 H 97 Room Air Anesthesia: General Endotracheal-GETA Mental Status: Awake Pain Control: Satisfactory Nausea/Vomiting: None Hydration: Adequate Anesthesia-Related Issues: No Anes. Related Issues
== END 2024-11-20 08:58 | disposition home or self-care (01) | DRG 403 ==
LOC: HO.SSSA 12:59 → HO.S3 13:33
PROVIDERS: Physician Assistant Surgical; Admitting Provider Surgery; PCP Physician Assistant Medical; Visit Provider Surgery
PROC: 0DB64Z3 Excision of Stomach, Percutaneous Endoscopic Approach, Vertical (ICD-10-PCS; CPT 43845; principal; 2024-11-19 10:20)
DX: E66.01 Morbid (severe) obesity due to excess calories (principal); K76.0 Fatty (change of) liver, not elsewhere classified; Q43.3 Congenital malformations of intestinal fixation; J45.909 Unspecified asthma, uncomplicated; Z68.41 Body mass index [BMI] 40.0-44.9, adult; K21.9 Gastro-esophageal reflux disease without esophagitis; Z79.899 Other long term (current) drug therapy
CPT/HCPCS: 36415; 80048; 85014; 85018; 85025; 86850; 86900; 86901; 88304; 88305; 88307; 88342; A4649; C9145; J0131; J0690; J1100; J1171; J2003; J2250; J2405; J2470; J2704; J2795; J3010; J7120

== ENCOUNTER → 2024-11-19 07:54 | Outpatient (BNV) | payer OTHER, SELFPAY | PROVIDERS: Admitting Provider Surgery; PCP Physician Assistant Medical; Visit Provider Surgery | DX: E66.01 Morbid (severe) obesity due to excess calories (principal); J45.909 Unspecified asthma, uncomplicated; K21.9 Gastro-esophageal reflux disease without esophagitis; K76.0 Fatty (change of) liver, not elsewhere classified | CPT/HCPCS: 43659; 43775; 99024; 99499 ==

== ENCOUNTER 2024-11-26 09:03 | Outpatient (AMB) | payer OTHER, SELFPAY ==
--- NOTE | 2024-11-26 09:36 | A.OFFVIS_ITS ---
VS Expanded 11/26/24 09:46 BP 123/68 Blood Pressure Location Rt brachial Blood Pressure Position Sitting Pulse 86 Pulse Source Pulse Oximeter Temp 96.8 F Temperature Source Temporal Artery Scan Pulse Oximetry 99 Oxygen Delivery Method Room Air Height 5 ft 10 in Weight 283 lb 6.4 oz BMI 40.7 Body Fat % 39.6 Body Fat Mass 112.2 Fat Free Mass 171.0 Visceral Fat Rating 19.0 Body Water % 41.9 Body Water Mass 118.6 Muscle Mass/Score 162.8 Basal Metabolic Rate/Score 2,432 Intake Visit Reasons: (OV) PO LSG 11/19/24 Allergies animal dander Allergy (Intermediate, Verified 11/26/24 09:39) Itchy Eyes lactose Allergy (Mild, Verified 11/26/24 09:39) Flatulence house dust Adverse Reaction (Intermediate, Verified 11/26/24 09:39) Sneezing HPI Comments Details: Patient is a pleasant 24-year-old male who was approximately 1 week post sleeve gastrectomy performed on 11/19/2024. Tolerating 3 premier protein shakes with 1 scoop each and approximately 50 oz of fluids. He has moved his bowels. Denies any significant pain. [facility] Medical History Routine physical examination Bowel disease, inflammatory Morbid obesity Sinusitis Seasonal allergies Obesity Asthma Surgical History History of esophagogastroduodenoscopy (EGD) H/O wisdom tooth extraction Family History Mother High blood pressure Diabetes Thyroid disorder Father Asthma Social History Household Members: Significant Other and Family Housing: Apartment Housing Other:: 3 family home Are you a primary hemodialysis patient care specialist to a significant other at home: No Do you presently have visiting nurse or other home services: No Alcohol intake: current Alcohol intake frequency: holidays/special occasions only Patient Tobacco Use Status: Never used Tobacco Tobacco use type: Smokeless Tobacco e-Cigarette/Vaping Use: Currently Using service: No Current occupational status: employed 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 Original weight on 07/27/2024 was 320.8 pounds and op weight was 292.6 pounds. Be sure to text Dr Schmidt exactly 1 week after surgery your weight from your home scale so he can adjust your meal plan. Continue meal plan until f/u shobha Guevara in 2 weeks May shower, no submersion in bath for another week Continue abdominal binder with activity and exercise for the next 2 weeks. Exercise prior to surgery was treadmill elliptical and stationary bike at the gym and may resume No abdominal exercises for 6 weeks post operatively Will be emailed link to post op video for review Reminded of the pace of drinking, 2 mL per minute, 1 oz/15 min.
[2024-11-26 09:46] VITALS: BP 123/68; PULSE 86; TEMP 36; O2SAT 99; BMI 40.7
== END 2024-11-26 10:00 | disposition home or self-care (01) ==
PROVIDERS: PCP Physician Assistant Medical; Visit Provider Physician Assistant Surgical
DX: Z98.84 Bariatric surgery status (principal)
CPT/HCPCS: 99024

== ENCOUNTER → 2024-11-26 09:03 | Outpatient (BNVA) | payer OTHER, SELFPAY | PROVIDERS: PCP Physician Assistant Medical; Visit Provider Physician Assistant Surgical | DX: Z48.815 Encounter for surgical aftercare following surgery on the digestive system (principal); Z98.84 Bariatric surgery status | CPT/HCPCS: 99212 ==

== ENCOUNTER 2024-12-11 10:04 | Outpatient (AMB) | payer OTHER, SELFPAY ==
--- NOTE | 2024-12-11 10:03 | A.OFFWM_ITS ---
Intake Intake Visit Reasons: VIDEO PO LSG 11/19/24 Allergies animal dander Allergy (Intermediate, Verified 11/26/24 09:39) Itchy Eyes lactose Allergy (Mild, Verified 11/26/24 09:39) Flatulence house dust Adverse Reaction (Intermediate, Verified 11/26/24 09:39) Sneezing [facility] Medical History Routine physical examination Bowel disease, inflammatory Morbid obesity Sinusitis Seasonal allergies Obesity Asthma Surgical History History of esophagogastroduodenoscopy (EGD) H/O wisdom tooth extraction Family History Mother High blood pressure Diabetes Thyroid disorder Father Asthma Social History Household Members: Significant Other and Family Housing: Apartment Housing Other:: 3 family home Are you a primary care associate to a significant other at home: No Do you presently have visiting nurse or other home services: No Alcohol intake: current Alcohol intake frequency: holidays/special occasions only Patient Tobacco Use Status: Never used Tobacco Tobacco use type: Smokeless Tobacco e-Cigarette/Vaping Use: Currently Using service: No Current occupational status: employed 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 Patient reports struggling with sweet products but is adhering to the post-op plan as instructed by the provider, which includes eggs, cottage cheese, and yogurt. He is losing 6 lbs per week and has not been exercising. Patient has decided to take one month off work to focus on the program. He expresses gratitude for family support and the provider's guidance, acknowledging the emotional difficulty of the process. Patient reports managing emotionally overall but is processing the recent loss of his father (not closely connected), which occurred last week. He is supporting his siblings through the loss and states he is coping well. Objective Active listening, processed challenges and non-scale vistories. Discussed adherence to post-op instruction and ways to manage mindset and remain commited. Used CPT and interpersonal approach to support client with post-op life. Pt was Supported patient in processing grief and adjusting to the loss of his father. Encourage consistent emotional check-ins and coping strategies for the ongoing adjustment to the post-op life. Assessment * Mental status: WNL * Risk factors: none reported or identified. Patient is making progress with the post-op plan despite difficulties with sweet products. Emotional functioning is stable overall, with normal grief reactions noted regarding the recent loss of his father. The patient is committed to focusing on the program by taking time off work to prioritize health. There are no signs of significant psychological distress at this time. Food/Weight/Diet Expectations of change Initial goal to lose 10% of his weight before surgery, which is about 32lbs. Ultimate weight goal: 288lbs before surgery. Most recent weight (09/24/2024) 310Lbs. Pre-surgery weight: 292.6Lbs Weight as of 01/09/2025: 270Lbs Patient's Target weight: 200Lbs Current meal plan: shakes. Can have eggs, cottage cheese and [place] yogurt. (Pt would like to try new things) Current exercise plan: none at this time. Assessment & Plan Assessment & Plan (1) Adjustment disorder, unspecified: Code(s): F43.20 - Adjustment disorder, unspecified Qualifiers: Adjustment disorder type: unspecified type Qualified Code(s): F43.20 - Adjustment disorder, unspecified Plan -Continue supporting post-op adherence, with emphasis on managing sweet cravings and following provider instructions to avoid issues or complications. -Utilize CBT and CPT interventions to maintain motivation and address potential barriers to compliance. -Plan for follow-up appointment in 3 weeks. Next maribel: at 10am, Telehealth. Telehealth Telehealth Telehealth Platform: [facility] Location of provider rendering services: practice address Location of patient: address on file Patient Identification confirmed using: Name, : Yes Telehealth method: video Patient verbally consented to treatment: Yes Patient verbally consented to billing insurance company: Yes Patient informed of any privacy concerns related to visit: Yes Minutes spent on Phone/Video with Pt.: 60 Coding Level of Care Code Established Pt Tele Psytx >53 mins (20013) Patient Type Established Diagnoses Adjustment disorder, unspecified type F43.20 Adjustment disorder type: unspecified type Time Spent (min) 60
== END 2024-12-11 11:07 | disposition home or self-care (01) ==
LOC: HO.HBST 10:04
PROVIDERS: PCP Physician Assistant Medical; Visit Provider Counselor Mental Health
DX: F43.20 Adjustment disorder, unspecified (principal)
CPT/HCPCS: 90837

== ENCOUNTER → 2024-12-25 13:37 | Outpatient (AMB) | payer OTHER, SELFPAY | END | disposition home or self-care (01) | PROVIDERS: PCP Physician Assistant Medical; Visit Provider Physician Assistant Surgical | CPT/HCPCS: 99024 ==

== ENCOUNTER → 2024-12-25 13:37 | Outpatient (BNVA) | payer OTHER, SELFPAY | PROVIDERS: PCP Physician Assistant Medical; Visit Provider Physician Assistant Surgical | DX: Z71.3 Dietary counseling and surveillance (principal); Z98.84 Bariatric surgery status | CPT/HCPCS: 99212 ==

== ENCOUNTER 2024-12-28 16:04 | Emergency (ER) | payer OTHER, SELFPAY ==
[2024-12-28] VITALS (7 sets, daily range): BP systolic 119–130; BP diastolic 62–79; PULSE 89–130; RESP 15–24; TEMP 36.9–38.8; O2SAT 99–100; BMI 37.5
--- NOTE | ~2024-12-28 | XR_ITS ---
CLINICAL HISTORY: pain 2 view chest x-ray Comparison: DX/SR - XR CHEST 2V - 08/14/24 07:56 EDT Findings: No consolidation, pleural effusion or pneumothorax. Normal size heart. No acute fracture. IMPRESSION: 1. No acute findings. This document has been electronically signed by: Cathie Martinez DO on 12/28/2024 19:11:08
--- NOTE | 2024-12-28 17:15 | ECG_ITS ---
Test Reason : TACHY Blood Pressure : */* mmHG Vent. Rate : 122 BPM Atrial Rate : 122 BPM P-R Int : 162 ms QRS Dur : 86 ms QT Int : 284 ms P-R-T Axes : 46 -6 33 degrees QTcB Int : 404 ms Sinus tachycardia Nonspecific ST elevation Abnormal ECG When compared with ECG of 14-Aug-2024 08:40, Vent. rate has increased by [address] elevation now present in Inferior leads Referred By: Generic ED Physician Electronically Signed By: RAISSA SANTO MD
--- NOTE | 2024-12-28 17:16 | ED.GENADULT ---
HPI - General Adult General Chief complaint: Upper Respiratory Symptoms Stated complaint: Fever, body aches, recent surgery Time Seen by Provider: 12/28/24 19:27 History of Present Illness ED Provider: Issa VALDOVINOS narrative: The patient is a 24-year-old male who had bariatric surgery 1 month ago. He says that he started to feel mildly unwell yesterday with a dry cough, sore throat, and congestion. Today he felt much worse, ?like I got hit by a train.? He felt chilled and sweaty and fairly ill with diffuse body aches. He took some NyQuil around noon today. He ultimately came to the she has been told by his bariatric surgeon that if it any point he has a fever in the several weeks after his surgery he should go to an emergency room. He does not have any significant abdominal pain. No nausea or vomiting. No diarrhea. Related Data Home Medications ?Medication ?Instructions ?Recorded ?Confirmed fexofenadine 180 mg tablet 180 mg PO DAILY 11/07/23 12/25/24 (Staci Allergy) oxymetazoline 0.05 % nasal spray 2 spray intranasal Q12H PRN 11/07/23 12/25/24 (Afrin (oxymetazoline)) Allergic Symptoms Previous Rx's ?Medication ?Instructions ?Recorded albuterol sulfate 0.63 mg/3 mL 0.63 mg (3 mL) inhalation QID PRN 03/08/22 solution for nebulization shortness of breath or wheezing #75 mL albuterol sulfate 90 mcg/actuation 1 inh inhalation QID PRN shortness 03/08/22 aerosol inhaler of breath or wheezing #8.5 grams nebulizers (AeroEclipse II #1 ea 03/08/22 Nebulizer) pantoprazole 40 mg tablet,delayed 40 mg PO DAILY #90 tabs 11/04/24 release sucralfate 100 mg/mL oral 10 ml PO BID #600 mL 11/04/24 suspension Allergies Allergy/AdvReac Type Severity Reaction Status Date / Time animal dander Allergy Intermediate Itchy Eyes Verified 12/28/24 17:08 lactose Allergy Mild Flatulence Verified 12/28/24 17:08 house dust AdvReac Intermediate Sneezing Verified 12/28/24 17:08 [facility] Past Medical History Medical History Routine physical examination Bowel disease, inflammatory Morbid obesity Sinusitis Seasonal allergies Obesity Asthma Surgical History History of esophagogastroduodenoscopy (EGD) H/O wisdom tooth extraction Family History Family History Mother High blood pressure Diabetes Thyroid disorder Father Asthma Social History Social History Household Members: Significant Other and Family Housing: Apartment Housing Other:: 3 family home Are you a primary direct care provider to a significant other at home: No Do you presently have visiting nurse or other home services: No Alcohol intake: current Alcohol intake frequency: does not drink Patient Tobacco Use Status: Never used Tobacco Tobacco use type: Smokeless Tobacco Smoked in Last 30 Days: No e-Cigarette/Vaping Use: Currently Using Use of substances other than those prescribed or required for medical reasons: No Advance Directives: No Advance Directives Information Provided: No Do you have a plan to hurt others: No Plan service: No Current occupational status: employed 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 Cognitive needs: No Hearing needs: No Vision needs: No Physical Exam ED Vital Signs: Vital Signs - 24 hr 12/28/24 17:04 12/28/24 19:30 12/28/24 19:39 Temperature 101.9 F H 99.1 F Pulse Rate 130 H 108 H Respiratory Rate 24 H 19 Blood Pressure 130/67 122/79 Pulse Oximetry 100 99 99 Oxygen Delivery Method Room Air Room Air Room Air 12/28/24 20:49 12/28/24 20:50 Temperature 98.5 F 98.5 F Pulse Rate 89 Respiratory Rate 15 Blood Pressure 119/62 Pulse Oximetry 100 Oxygen Delivery Method Room Air BMI result Body Mass Index 37.5 Const General: healthy appearing, comfortable, no acute distress, alert and awake Orientation/consciousness: patient oriented x3 HENMT Face and sinus: Yes normal facial exam and Yes face symmetric Mouth: Normal oral and palatal mucosa present, oropharynx normal and moist mucous membranes Throat: Yes posterior oropharynx normal Eyes General: appearance normal, both eyes and all related structures Neck Neck: Yes full ROM and Yes no lymphadenopathy Resp Effort & Inspection: normal respiratory effort Auscultation: clear to auscultation bilaterally Cardio Rate: regular rate Rhythm: regular rhythm Heart sounds: S1 normal heart sound present and S2 normal heart sound present GI Other: Abdomen was soft and nontender Skin General skin exam: no rashes or lesions noted Neuro General: patient oriented x3, tone normal, moves all extremities and CN's II-XI intact bilaterally Extrem Other: no peripheral edema Course Course Course Narrative: RME, this is a rapid medical exam performed by Jose Manuel Luong please refer to primary provider for complete H&P- 24-year-old male presents for evaluation of fevers, cough, sore throat and congestion. The patient had a gastric sleeve on November 19, 2024. He has no abdominal pain/tenderness on exam. Plan for labs, viral swabs. Medications Administered Discontinued Medications Generic Name Dose Route Start Last Admin Trade Name Christoferq PRN Reason Stop Dose Admin Acetaminophen 650 mg 12/28/24 17:16 12/28/24 17:18 Acetaminophen 325 Mg Tablet PO 12/28/24 17:17 650 mg ONCE ONE Administration Acetaminophen 975 mg 12/28/24 19:40 12/28/24 19:56 Acetaminophen 325 Mg Tablet PO 12/28/24 19:41 975 mg ONCE ONE Administration Sodium Chloride 1,000 mls @ 999 mls/hr 12/28/24 19:45 12/28/24 21:02 Ns IV 12/28/24 20:45 Infused .Q1H1M BRIT Infusion Ketorolac Tromethamine 10 mg 12/28/24 19:40 12/28/24 19:56 Ketorolac Tromethamine 15 Mg/Ml Vial IVPUSH 12/28/24 19:41 10 mg ONCE ONE Administration Medical Decision Making Medical Decision Making [facility] Narrative: the patient is a very pleasant 24-year-old who presents with acute flu-like symptoms since yesterday. He does not seem acutely ill otherwise. His influenza swab was negative however. basic laboratory testing and chest x-ray are negative. We will send a full respiratory panel but this certainly seems like an acute viral syndrome. Patient was advised to use acetaminophen. He was discharged with viral instructions. The expanded respiratory panel later came back positive for influenza A even though his initial swab had come back negative. I called the patient on his cell phone on the morning of December 31 to inform him of this finding. The patient said that he was feeling better. He was advised to return to the emergency room if at any point he feels significantly worse. Lab Data 12/28/24 17:34 12/28/24 17:35 Labs: Lab Results 12/28/24 12/28/24 12/28/24 Range/Units 17:34 17:35 19:46 WBC 7.6 (4.8-10.8) X10*3/uL RBC 5.09 (4.60-5.80) X10*6/uL Hgb 14.7 (14.0-18.0) g/dl Hct 42.4 (42.0-52.0) % MCV 83.3 (80.0-98.0) fL MCH 28.9 (27.0-33.0) pg MCHC 34.7 (31.0-36.0) g/dl RDW 15.0 (11.0-16.0) % Plt Count 203 D (160-400) X10*3/uL MPV 10.4 (9.4-12.4) fL Immature Gran % (Auto) 0.3 (0.0-0.4) % Neut % (Auto) 75.9 H (45-73) % Lymph % (Auto) 10.8 L (20-40) % Marathon % (Auto) 11.6 H (2-11) % Eos % (Auto) 0.9 (0-4) % Baso % (Auto) 0.5 (0-2) % Lymph # (Auto) 0.8 L (1.2-4.9) X10*3/uL Marathon # (Auto) 0.9 (0.1-1.2) X10*3/uL Eos # (Auto) 0.1 (0.0-0.4) X10*3/uL Baso # (Auto) 0.0 (0.0-0.2) X10*3/uL Abs Immat Gran (auto) 0.02 (0.00-0.03) X10*3/uL Absolute Neuts (auto) 5.8 (2.0-8.3) x10*3/uL Absolute Nucleated RBC 0.000 (0.0-0.012) X10*3/uL Nucleated RBC % (auto) 0.0 (0.0-0.2) /100WBC Sodium 142 (135-145) mmol/L Potassium 3.2 L D (3.3-5.1) mmol/L Chloride 107 (96-108) mmol/L Carbon Dioxide 23 (22-29) mmol/L Anion Gap 15 (12-20) BUN 4 L (9-16) mg/dL Creatinine 0.81 (0.5-1.4) mg/dL Estim Creat Clear Calc 178.2 Estimated GFR > 60 Random Glucose 85 (60-115) mg/dL Lactic Acid 0.9 (0.5-2.0) mmol/L Calcium 9.1 (8.4-10.2) mg/dL Magnesium 1.8 (1.6-2.6) mg/dL Total Bilirubin 0.8 (0.0-1.0) mg/dL AST 34 (5-37) U/L ALT 25 (0-40) U/L Alkaline Phosphatase 67 (39-117) U/L C-Reactive Protein 1.36 H (< or = 0.50) mg/dL Total Protein 7.6 (6.5-8.0) g/dL Albumin 3.8 (3.5-5.0) g/dL Lipase 11 (8-78) U/L Respiratory Panel Shahid See Note Adenovirus (Rapid PCR) Not Detected (Not Detect.) B.pert (TEM-PCR) Not Detected (Not Detect.) B.parapertussis DNA PCR Not Detected (Not Detect.) C. pneumoniae DNA (PCR) Not Detected (Not Detect.) Coronavirus OC43 (PCR) Not Detected (Not Detect.) Coronavirus HKU1 (PCR) Not Detected (Not Detect.) Coronavirus 229E (PCR) Not Detected (Not Detect.) Coronavirus NL63 (PCR) Not Detected (Not Detect.) Human Metapneumovir PCR Not Detected (Not Detect.) Influenza A (RT-PCR) Detected A (Not Detect.) Influenza Type A (PCR) NEGATIVE (Negative) Influenza B (RT-PCR) Not Detected (Not Detect.) Influenza Type B (PCR) NEGATIVE (Negative) M. pneumoniae (PCR) Not Detected (Not Detect.) Parainfluenza 1 (PCR) Not Detected (Not Detect.) Parainfluenza 2 (PCR) Not Detected (Not Detect.) Parainfluenza 3 (PCR) Not Detected (Not Detect.) Parainfluenza 4 (PCR) Not Detected (Not Detect.) RSV (PCR) Not Detected (Not Detect.) RSV RNA Qual (PCR) NEGATIVE (Negative) Entero/Rhino (PCR) Not Detected (Not Detect.) SARS-CoV-2 RNA (RT-PCR) NEGATIVE Not Detected (Negative) S. pyogenes GrpA SHERICE Negative (Negative) Discharge Plan Discharge Clinical Impression: Acute viral syndrome Patient Disposition: Home, Self-Care Additional Instructions: Testing today is reassuring from the point of view of any acutely dangerous bacterial infection. I think he likely have some kind of flu-like illness although you have tested negative for the flu today. Please rest and take it easy. Drink lot of fluids. You may take 2 extra-strength acetaminophen (Tylenol) for discomfort up to 3 times per day. Please stay in touch with your regular doctor for additional advice as needed. If you feel significantly worse please return to the emergency department. Prescriptions: No Action albuterol sulfate 90 mcg/actuation HFA aerosol inhaler 1 inh inhalation QID PRN (Reason: shortness of breath or wheezing) Qty: 8.5 0RF (DME) nebulizers [AeroEclipse II Nebulizer] Misc See Rx Instructions .ROUTE .MEDSUPPLY Qty: 1 0RF Rx Instructions: As directed albuterol sulfate 0.63 mg/3 mL solution for nebulization 0.63 mg inhalation QID PRN (Reason: shortness of breath or wheezing) Qty: 75 0RF fexofenadine [Staci Allergy] 180 mg tablet 180 mg PO DAILY oxymetazoline [Afrin (oxymetazoline)] 0.05 % spray,non-aerosol 2 spray intranasal Q12H PRN (Reason: Allergic Symptoms) pantoprazole 40 mg tablet,delayed release (DR/EC) 40 mg PO DAILY Qty: 90 0RF sucralfate 100 mg/mL suspension 10 ml PO BID Qty: 600 2RF Referrals: Alejandra Odell PA [Primary Care Provider] - (flu-like syndrome) Stand Alone Forms: Work/School Release Interventions: ED Discharge Assessment Last Done: 12/28/24 21:16 Discharge Date/Time: 12/28/24 21:18 Print Language: Chinese
[2024-12-28] MEDS: Acetaminophen 325 MG TABLET 650 MG PO (17:18)
[2024-12-28 17:43] LABS: MANUAL DIFF FLAG NO
[2024-12-28 17:46] LABS: Basophils Percent Auto 0.5 % (0-2); Eosinophils Absolute Auto 0.1 X10*3/uL (0.0-0.4); Eosinophils Percent Auto 0.9 % (0-4); Hematocrit 42.4 % (42.0-52.0); Hemoglobin 14.7 g/dl (14.0-18.0); Imm Gran Abs Auto 0.02 X10*3/uL (0.00-0.03); Imm Gran Pct Auto 0.3 % (0.0-0.4); Lymphocytes Absolute Auto 0.8 X10*3/uL (1.2-4.9); Lymphocytes Percent Auto 10.8 % (20-40); Mean Corpuscular HGB Conc 34.7 g/dl (31.0-36.0); Mean Corpuscular Hemoglobin 28.9 pg (27.0-33.0); Mean Corpuscular Volume 83.3 fL (80.0-98.0); Mean Platelet Volume 10.4 fL (9.4-12.4); Monocytes Absolute Auto 0.9 X10*3/uL (0.1-1.2); Monocytes Percent Auto 11.6 % (2-11); Neutrophils Absolute Auto 5.8 x10*3/uL (2.0-8.3); Neutrophils Percent Auto 75.9 % (45-73); Platelet Count 203 X10*3/uL (160-400); Red Blood Count 5.09 X10*6/uL (4.60-5.80); White Blood Count 7.6 X10*3/uL (4.8-10.8)
[2024-12-28 18:00] LABS: IDNOW Serial# 08D9AD1C; Strep A Nucleic Acid Negative (Negative)
[2024-12-28 18:08] LABS: Alanine Aminotransferase 25 U/L (0-40); Albumin Level 3.8 g/dL (3.5-5.0); Alkaline Phosphatase 67 U/L (39-117); Anion Gap 15 (12-20); Aspartate Amino Transferase 34 U/L (5-37); Bilirubin Total 0.8 mg/dL (0.0-1.0); Blood Urea Nitrogen 4 mg/dL (9-16); Calcium 9.1 mg/dL (8.4-10.2); Carbon Dioxide 23 mmol/L (22-29); Chloride 107 mmol/L (96-108); Creatinine Clr Calc Pharmacy 178.2; Estimated Glomerular Filt Rate > 60; Glucose Random 85 mg/dL (60-115); Lipase 11 U/L (8-78); Magnesium 1.8 mg/dL (1.6-2.6); Potassium 3.2 mmol/L (3.3-5.1); Sodium 142 mmol/L (135-145); Total Protein 7.6 g/dL (6.5-8.0)
[2024-12-28 18:31] LABS: Influenza A PCR NEGATIVE (Negative); Influenza B PCR NEGATIVE (Negative); Resp Syncy Virus RNA Qual PCR NEGATIVE (Negative); SARS COV2 PCR INHOUSE NEGATIVE (Negative)
[2024-12-28 19:48] LABS: C Reactive Protein 1.36 mg/dL (< or = 0.50)
[2024-12-28] MEDS: 0.9 % Sodium Chloride 1,000 ML 999 ML IV (19:49)
[2024-12-28] MEDS: Ketorolac Tromethamine 15 MG/ML VIAL 10 MG IVPUSH (19:56)
[2024-12-28] MEDS: Acetaminophen 325 MG TABLET 975 MG PO (19:56)
[2024-12-28 20:08] LABS: Lactic Acid 0.9 mmol/L (0.5-2.0)
[2024-12-29 10:42] LABS: Adenovirus PCR Not Detected (Not Detect.); Bordetella parapertussis PCR Not Detected (Not Detect.); Bordetella pertussis PCR Not Detected (Not Detect.); Chlamydia pneumoniae PCR Not Detected (Not Detect.); Coronavirus 229E PCR Not Detected (Not Detect.); Coronavirus HKU1 PCR Not Detected (Not Detect.); Coronavirus NL63 PCR Not Detected (Not Detect.); Coronavirus OC43 PCR Not Detected (Not Detect.); Human metapneumovirus PCR Not Detected (Not Detect.); Influenza B PCR Not Detected (Not Detect.); Mycoplasma pneumoniae PCR Not Detected (Not Detect.); Parainfluenza 1 PCR Not Detected (Not Detect.); Parainfluenza 2 PCR Not Detected (Not Detect.); Parainfluenza 3 PCR Not Detected (Not Detect.); Parainfluenza 4 PCR Not Detected (Not Detect.); RSV PCR Not Detected (Not Detect.); Rhino/Enterovirus PCR Not Detected (Not Detect.)
[2024-12-29 11:20] LABS: Influenza A PCR Detected (Not Detect.); SARS-CoV-2 PCR Not Detected (Not Detect.)
== END 2024-12-28 21:18 | disposition home or self-care (01) ==
PROVIDERS: Physician Assistant; Emergency Provider Emergency Medicine; PCP Physician Assistant Medical
DX: B34.9 Viral infection, unspecified (principal); R05.9 Cough, unspecified; J02.9 Acute pharyngitis, unspecified; Z03.818 Encounter for observation for suspected exposure to other biological agents ruled out
CPT/HCPCS: 0241U; 71046; 80053; 83605; 83690; 83735; 85025; 86140; 87040; 87633; 87651; 93005; 96361; 96374; 99284; 99285; J1885

== ENCOUNTER → 2024-12-28 17:15 | Outpatient (BNV) | payer OTHER, SELFPAY | PROVIDERS: Emergency Provider Emergency Medicine; PCP Physician Assistant Medical; Visit Provider Internal Medicine Cardiovascular Disease | DX: I21.29 ST elevation (STEMI) myocardial infarction involving other sites (principal); R00.0 Tachycardia, unspecified | CPT/HCPCS: 93010 ==

== ENCOUNTER → 2024-12-28 17:17 | Outpatient (BNV) | payer OTHER, SELFPAY | PROVIDERS: Emergency Provider Emergency Medicine; PCP Physician Assistant Medical; Visit Provider Radiology Diagnostic Radiology | DX: R07.9 Chest pain, unspecified (principal) | CPT/HCPCS: 71046 ==

== ENCOUNTER 2025-01-01 10:16 | Outpatient (AMB) | payer OTHER, SELFPAY ==
--- NOTE | 2025-01-01 10:15 | A.OFFWM_ITS ---
Intake Intake Visit Reasons: VIDEO PO LSG 11/19/24 Allergies animal dander Allergy (Intermediate, Verified 12/28/24 17:08) Itchy Eyes lactose Allergy (Mild, Verified 12/28/24 17:08) Flatulence house dust Adverse Reaction (Intermediate, Verified 12/28/24 17:08) Sneezing [facility] Medical History Routine physical examination Bowel disease, inflammatory Morbid obesity Sinusitis Seasonal allergies Obesity Asthma Surgical History History of esophagogastroduodenoscopy (EGD) H/O wisdom tooth extraction Family History Mother High blood pressure Diabetes Thyroid disorder Father Asthma Social History Household Members: Significant Other and Family Housing: Apartment Housing Other:: 3 family home Are you a primary care mgr to a significant other at home: No Do you presently have visiting nurse or other home services: No Alcohol intake: current Alcohol intake frequency: does not drink Patient Tobacco Use Status: Never used Tobacco Tobacco use type: Smokeless Tobacco e-Cigarette/Vaping Use: Currently Using service: No Current occupational status: employed 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 He expresses frustration and a sense of desperation regarding his difficulty with transitioning to solid foods. Additionally, PT is dealing with stress related to changes in his family and work life. Objective: PT presents for a telehealth post-op follow-up visit. Active listening was used to process his challenges and highlight non-scale victories. CBT and CPT-based interventions were applied to address both controllable and uncontrollable factors. We discussed stress management techniques and decision-making strategies, including options for planning his next professional steps. I advised PT to communicate with his provider about his meal plan and potential adjustments. Also worked on post-op life around excercise, ways he can become consistent. Assessment: * Mental status: Emotionally stable but acknowledges stress and frustration. * Risk factors: None identified or reported. Food/Weight/Diet Expectations of change Initial goal to lose 10% of his weight before surgery, which is about 32lbs. Ultimate weight goal: 288lbs before surgery. Most recent weight (09/24/2024) 310Lbs. Pre-surgery weight: 292.6Lbs Weight as of 01/09/2025: 270Lbs Weight a of today, 01/01/2025: 228.6Lbs Patient's Target weight: 200Lbs Current meal plan: shakes. Can have eggs, cottage cheese and Guatemalan yogurt. (Pt would like to try new things) Current exercise plan: none at this time. Assessment & Plan Assessment & Plan (1) Adjustment disorder, unspecified: Code(s): F43.20 - Adjustment disorder, unspecified Plan F/up in about a month. Next maribel: 01/28/2025 Telehealth Telehealth Telehealth Platform: [facility] Location of provider rendering services: other Location of patient: other Patient Identification confirmed using: Name, : Yes Telehealth method: video Patient verbally consented to treatment: Yes Patient verbally consented to billing insurance company: Yes Patient informed of any privacy concerns related to visit: Yes Minutes spent on Phone/Video with Pt.: 45 Coding Level of Care Code Established Pt Tele Psytx 45 mins ([id number]) Patient Type Established Diagnoses Adjustment disorder, unspecified F43.20 Time Spent (min) 45
--- OUTSIDE RECORDS SUMMARY | 2025-01-01 11:07 | XMS_ITS | Data Portability ---
Author Organization [facility], [address] Address [address] [place] [address] Assessment No assessment recorded. Plan of Treatment Reminders Order Date Submit Date Provider Last Modified By Organization Details Last Modified Time Details Appointments None record ed. Lab None record ed. Referral None record ed. Procedures None record ed. Surgeries None record ed. Imaging None record ed. Medication Orders None record ed. Patient TargetsNo targets recorded. Patient InstructionsNo instructions recorded. Reason for Referral None Reported. Procedures Surgical History Date Name Laterality Status Provider Name and Address Organization Details Recorded Time 3 OC-UDS Send Out Template NON DOT completed SONG TRAMNOREEN [employer] 05/06/2023 11:43:45 3 OC-UDS Send Out Template NON DOT completed GEORGE CHRISTIANSON [employer] 02/07/2023 18:21:32 Imaging Results None recorded. Procedure Notes None recorded. Medical Equipment None Reported. Medications Name Sig Start Date Stop Date Status Note LastModified by Organization Details LastModified Time cyclobenzapri ne 10 mg tablet TAKE 1 TABLET BY MOUTH EVERY 8 HOURS active Not Available Not Available No t Available albuterol sulfate 0.63 mg/3 mL solution for nebulization USE 1 VIAL VIA NEBULIZER 4 TIMES DAILY NEEDED FOR WHEEZE/OCTAVIO RTNESS OF BREATH active Not Available Not Available No t Available azithromycin 250 mg tablet TAKE 2 TABLETS BY MOUTH TODAY, THEN TAKE 1 TABLET DAILY FOR 4 DAYS active Not Available Not Available No t Available prednisone 20 mg tablet TAKE 2 TABLETS BY MOUTH EVERY DAY FOR 5 DAYS FOR RASH active Not Available Not Available No t Available codeine 10 mg-guaifenesi n 100 mg/5 mL oral liquid TAKE 5MLS BY MOUTH EVERY 6 HOURS NEEDED FOR COLD SYMPTOMS active Not Available Not Available No t Available naproxen 500 mg tablet TAKE 1 TABLET BY MOUTH TWICE A DAY NEEDED FOR PAIN active Not Available Not Available No t Available ProAir HFA 90 mcg/actuation aerosol inhaler INHALE 1 PUFF BY MOUTH 4 TIMES A DAY NEEDED FOR WHEEZE/OCTAVIO RTNESS OF BREATH active Not Available Not Available No t Available Vitals None Recorded Social History None recorded. Functional Status None recorded. Mental Status None recorded. Family History Nothing Reported. Medical History No medical history recorded. Past Encounters Encounter ID Performer Location Encounter Start Date Encounter Closed Date Diagnosis/Indication Diagnosis SNOMED-CT Code Diagnosis ICD10 Code Diagnosis Note [id number] [place] [address] [facility] [address] [place] [address] 02/07/2023 17:50:37 02/07/2023 18:24:10 History and physical examination, occupation [id number] Z02.1 [id number] Sara Olivas MD [address] [place] [address] 05/06/2023 11:03:10 05/06/2023 11:48:31 History and physical examination, occupation [id number] Z02.1 Health Concerns Section Related Observation LastModified by Organization Detai ls LastModified Time None Recorded Concern Status LastModified by Organization Details LastModified Time None Recorded Advance Directives Directive None Recorded Payers Encounter Date Sequence Insurance Name Policy Number Policy [employer] Covered Member ID [employer] Member ID Guarantor Name 02/07/2023 OC-ESCREEN Juve Adler [id number] Juve Adler 05/06/2023 OC-ESCREEN Juve Adler [id number] Juve Adler
== END 2025-01-01 11:17 | disposition home or self-care (01) ==
LOC: HO.HBST 10:16
PROVIDERS: PCP Physician Assistant Medical; Visit Provider Counselor Mental Health
DX: F43.20 Adjustment disorder, unspecified (principal)
CPT/HCPCS: 90834

== ENCOUNTER → 2025-01-01 10:16 | Outpatient (BNVA) | payer OTHER, SELFPAY | PROVIDERS: PCP Physician Assistant Medical; Visit Provider Counselor Mental Health ==

== ENCOUNTER 2025-03-23 13:41 | Outpatient (AMB) | payer BC, SELFPAY ==
--- NOTE | 2025-03-23 13:44 | MHC.OFFVISWM ---
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 Presents for 4 month post op visit. Weight today is 224.2 pounds, with a BMI of 32.1. There has been a 96.6 pound weight loss,(initial weight 320.8 pounds) since starting the program on 07/27/2024 reflecting a 30.1 % total body weight loss and a weight loss of 68.4 pounds since surgery (operative weight 292.6 pounds) reflecting a 23.3 % TBWL since surgery. No complaints of nausea, emesis, abdominal pain or reflux. Reports infrequent but normal bowel movements every 2-3 days and uses stool softeners regularly. Taking MVI in the morning. Wants to change to Premier protein RTD shake. Of note, he is planning on entering the . There is some documentation that needs to be submitted from our office stating that he is physically capable of joining the from a bariatric surgery standpoint. He will get us the paperwork. Present meal plan includes: 1 egg, 1/2 slice toast, cereal, 8-11 am left over rice/shrimp chicken, 12-3 another meal , 4-6 (not measuring) drinking 96 oz water ? Exercise routine includes: PF, 5 days per week, treadmill, push-ups, sit ups, squats PFSH Medical History H. pylori infection Normal physical examination, routine Laboratory tests ordered as part of a complete physical exam (CPE) Routine physical examination Bowel disease, inflammatory Morbid obesity Sinusitis Seasonal allergies Obesity Asthma Surgical History S/P laparoscopic sleeve gastrectomy History of esophagogastroduodenoscopy (EGD) H/O wisdom tooth extraction Family History Mother High blood pressure Diabetes Thyroid disorder Father Asthma Social History Household Members: Significant Other and Family Housing: Apartment Housing Other:: 3 family home Are you a primary medicare biller to a significant other at home: No Do you presently have visiting nurse or other home services: No Alcohol intake: current Alcohol intake frequency: does not drink Patient Tobacco Use Status: Never used Tobacco Tobacco use type: Smokeless Tobacco e-Cigarette/Vaping Use: Currently Using service: No Current occupational status: employed 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 Recommend change meal plan: Premier protein or fair life ready to drink shake Meal with 7 forks of protein and 7 forks of vegetables x2 Encouraged to continue going to the gym, goal 300 calories burned per day 7 days a week or 2000 calories per week. We will have him return to the office in approximately 2 months.
[2025-03-23 13:57] VITALS: BP 130/70; PULSE 79; TEMP 36.8; O2SAT 100; BMI 32.2
--- OUTSIDE RECORDS SUMMARY | 2025-03-23 14:59 | XMS_ITS | Data Portability ---
Author Organization [facility], [address] Address [address] [place] [address] Assessment No assessment recorded. Plan of Treatment [...] Out Template NON DOT completed SONG TRAMNOREEN [employer] 05/06/2023 11:43:45 3 OC-UDS Send Out Template NON DOT completed GEORGE CHRISTIANSON [employer] 02/07/2023 18:21:32 Imaging Results None recorded. Procedure [...] SNOMED-CT Code Diagnosis ICD10 Code Diagnosis Note [id number] Eleazar Nguyen [place] [address] [facility] [address] [place] [address] 02/07/2023 17:50:37 02/07/2023 18:24:10 History and physical examination, occupation [id number] Z02.1 [id number] Sara Olivas MD [address] [place] [address] 05/06/2023 11:03:10 05/06/2023 11:48:31 History and physical examination, occupation [id number] Z02.1 Health Concerns Section Related Observation LastModified by Organization Detai ls LastModified Time None Recorded Concern Status LastModified by Organization Details LastModified Time None Recorded Advance Directives Directive None Recorded Payers Encounter Date Sequence Insurance Name Policy Number Policy [employer] Covered Member ID [employer] Member ID Guarantor Name 02/07/2023 OC-ESCREEN Juve Adler [id number] Juve Adler 05/06/2023 OC-ESCREEN Juve Adler [id number] Juve Adler
== END 2025-03-23 14:20 | disposition home or self-care (01) ==
LOC: HO.HBS 13:42
PROVIDERS: PCP Physician Assistant Medical; Visit Provider Physician Assistant Surgical
DX: E66.9 Obesity, unspecified (principal); E66.811 Obesity, class 1; Z68.32 Body mass index [BMI] 32.0-32.9, adult; Z98.84 Bariatric surgery status
CPT/HCPCS: 99213

== ENCOUNTER → 2025-03-23 13:41 | Outpatient (BNVA) | payer BC, SELFPAY | PROVIDERS: PCP Physician Assistant Medical; Visit Provider Physician Assistant Surgical ==

== ENCOUNTER 2025-05-24 10:53 | Outpatient (AMB) | payer BC, SELFPAY ==
--- NOTE | 2025-05-24 11:14 | MHC.OFFVISWM ---
VS Expanded 05/24/25 11:25 BP 121/76 Blood Pressure Location Rt brachial Blood Pressure Position Sitting Pulse 78 Pulse Source Pulse Oximeter Temp 97.5 F Temperature Source Temporal Artery Scan Pulse Oximetry 99 Oxygen Delivery Method Room Air Height 5 ft 10 in Weight 207 lb 9.6 oz BMI 29.8 Body Fat % 25.1 Body Fat Mass 52.0 Fat Free Mass 155.4 Visceral Fat Rating 8.0 Body Water % 54.5 Body Water Mass 113.0 Muscle Mass/Score 147.8 Basal Metabolic Rate/Score 2,109 Intake Visit Reasons: OV PO LSG 11/19/24 Allergies animal dander Allergy (Intermediate, Verified 05/24/25 11:26) Itchy Eyes house dust Adverse Reaction (Intermediate, Verified 05/24/25 11:26) Sneezing HPI Comments Details: This?a?25?yo male who is s/p LSG without hiatal hernia repair on?11/19/2024. Presents for 6 month post op visit. Weight today is 207.6 pounds, with a BMI of 29.8. There has been a 113 pound weight loss,(initial weight 320.8 pounds) since starting the program on 07/27/2024 reflecting a 35.2 % total body weight loss and a weight loss of 85 pounds since surgery (operative weight 292.6 pounds) reflecting a 29 % TBWL since surgery. No complaints of nausea, emesis, abdominal pain or reflux. Reports infrequent but normal bowel movements every 2-3 days and uses stool softeners regularly. Taking MVI in the morning. Wants to change to Premier protein RTD shake. Of note, he is planning on entering the . Not measuring food quantitiy Present meal plan includes: fair life (30 gm) ready to drink shake Meal with 7 forks of protein and 7 forks of vegetables x 2 drinking 64-80 oz water ? Exercise routine includes: workouts at home push-ups, sit ups, squats Any post op complications: None VINNY: Never DM: Never HTN: Never Hyperlipidemia: Never GERD:?0-5 scale ??0 = no symptoms ??1 = symptoms noticeable but not bothersome 2 =symptoms bothersome but not daily ? 3 = symptoms bothersome and daily 4 = symptoms affect daily activities 5 = symptoms are incapacitating, unable to do daily activities ? How bad is the heartburn: 0 ? Heartburn while lying down: 0 ? Heartburn when standing up: 0 ? Heartburn after meals: 0 ? Does heartburn change your diet: 0 ? Does heartburn wake you up from sleep: 0 ? Do you have difficulty swallowin ? Do you have pain with swallowin ? If you take medicine for your reflux, does this affect your daily life: 0 Satisfaction with present condition - satisfied or not satisfied: satisfied [facility] Medical History H. pylori infection Normal physical examination, routine Laboratory tests ordered as part of a complete physical exam (CPE) Routine physical examination Bowel disease, inflammatory Morbid obesity Sinusitis Seasonal allergies Obesity Asthma Surgical History S/P laparoscopic sleeve gastrectomy History of esophagogastroduodenoscopy (EGD) H/O wisdom tooth extraction Family History Mother High blood pressure Diabetes Thyroid disorder Father Asthma Social History Household Members: Significant Other and Family Housing: Apartment Housing Other:: 3 family home Are you a primary career services representative to a significant other at home: No Do you presently have visiting nurse or other home services: No Alcohol intake: current Alcohol intake frequency: does not drink Patient Tobacco Use Status: Never used Tobacco Tobacco use type: Smokeless Tobacco e-Cigarette/Vaping Use: Currently Using service: No Current occupational status: employed 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 Cognitive needs: No Hearing needs: No Vision needs: No Physical Exam Vital Signs: Last Vital Signs Temp 97.5 F 05/24/25 11:25 Pulse 78 05/24/25 11:25 BP 121/76 05/24/25 11:25 Pulse Ox 99 05/24/25 11:25 Oxygen Delivery Method Room Air 05/24/25 11:25 BMI result Body Mass Index 29.8 Const General: healthy appearing and no acute distress Resp Effort & Inspection: normal respiratory effort Auscultation: clear to auscultation bilaterally Cardio Rate: regular rate Rhythm: regular rhythm GI Auscultation: normal bowel sounds Extrem General: Yes normal to inspection Assessment & Plan Assessment & Plan (1) S/P laparoscopic sleeve gastrectomy: Code(s): Z98.84 - Bariatric surgery status Category: Surgical Plan: Discussed the importance of measuring food quantity. He may continue his fair life shake however decrease food portion to 6 forks of protein and 6 forks of vegetables, x2 meals. Additionally, he is scheduled to join the and initiate basic training in the very near future. He will let us know when this happens. We will check six-month postop labs. Return to clinic 4-6 weeks. Orders: Orders Hemoglobin A1c Today E51.9 - Thiamine deficiency, unspecified, E55.9 - Vitamin D deficiency, unspecified, K76.0 - Fatty (change of) liver, not elsewhere classified, Z98.84 - Bariatric surgery status Complete Blood Count Auto Diff Today E51.9 - Thiamine deficiency, unspecified, E55.9 - Vitamin D deficiency, unspecified, K76.0 - Fatty (change of) liver, not elsewhere classified, Z98.84 - Bariatric surgery status IRON PROFILE Today E51.9 - Thiamine deficiency, unspecified, E55.9 - Vitamin D deficiency, unspecified, K76.0 - Fatty (change of) liver, not elsewhere classified, Z98.84 - Bariatric surgery status Comprehensive Met. Panel Today E51.9 - Thiamine deficiency, unspecified, E55.9 - Vitamin D deficiency, unspecified, K76.0 - Fatty (change of) liver, not elsewhere classified, Z98.84 - Bariatric surgery status Vitamin A Today E51.9 - Thiamine deficiency, unspecified, E55.9 - Vitamin D deficiency, unspecified, K76.0 - Fatty (change of) liver, not elsewhere classified, Z98.84 - Bariatric surgery status TSH reflex Free T4 Today E51.9 - Thiamine deficiency, unspecified, E55.9 - Vitamin D deficiency, unspecified, K76.0 - Fatty (change of) liver, not elsewhere classified, Z98.84 - Bariatric surgery status Ferritin Today E51.9 - Thiamine deficiency, unspecified, E55.9 - Vitamin D deficiency, unspecified, K76.0 - Fatty (change of) liver, not elsewhere classified, Z98.84 - Bariatric surgery status Vitamin D 25-OH Total Today E51.9 - Thiamine deficiency, unspecified, E55.9 - Vitamin D deficiency, unspecified, K76.0 - Fatty (change of) liver, not elsewhere classified, Z98.84 - Bariatric surgery status Insulin Today E51.9 - Thiamine deficiency, unspecified, E55.9 - Vitamin D deficiency, unspecified, K76.0 - Fatty (change of) liver, not elsewhere classified, Z98.84 - Bariatric surgery status Lipid Panel Today E51.9 - Thiamine deficiency, unspecified, E55.9 - Vitamin D deficiency, unspecified, K76.0 - Fatty (change of) liver, not elsewhere classified, Z98.84 - Bariatric surgery status Vitamin B12 and Folate Today E51.9 - Thiamine deficiency, unspecified, E55.9 - Vitamin D deficiency, unspecified, K76.0 - Fatty (change of) liver, not elsewhere classified, Z98.84 - Bariatric surgery status Zinc Today E51.9 - Thiamine deficiency, unspecified, E55.9 - Vitamin D deficiency, unspecified, K76.0 - Fatty (change of) liver, not elsewhere classified, Z98.84 - Bariatric surgery status C Reactive Protein Today E51.9 - Thiamine deficiency, unspecified, E55.9 - Vitamin D deficiency, unspecified, K76.0 - Fatty (change of) liver, not elsewhere classified, Z98.84 - Bariatric surgery status Vitamin B1 Today E51.9 - Thiamine deficiency, unspecified, E55.9 - Vitamin D deficiency, unspecified, K76.0 - Fatty (change of) liver, not elsewhere classified, Z98.84 - Bariatric surgery status
[2025-05-24 11:25] VITALS: BP 121/76; PULSE 78; TEMP 36.4; O2SAT 99; BMI 29.8
--- OUTSIDE RECORDS SUMMARY | 2025-05-24 11:50 | XMS_ITS | Data Portability ---
Author Organization [facility], [id number] Address [address] [place] [address] Assessment No assessment recorded. Plan of Treatment [...] Send Out Template NON DOT completed SONG BREEN [employer] 05/06/2023 11:43:45 3 OC-UDS Send Out Template NON DOT completed GEORGE CHRISTIANSON [facility] 02/07/2023 18:21:32 Imaging Results None recorded. Procedure [...] SNOMED-CT Code Diagnosis ICD10 Code Diagnosis Note [id number] Eleazar Nguyen [place] [address] [facility] [address] [place] [address] 02/07/2023 17:50:37 02/07/2023 18:24:10 History and physical examination, occupation [id number] Z02.1 [id number] Sara Olivas MD [address] [place] [address] 05/06/2023 11:03:10 05/06/2023 11:48:31 History and physical examination, occupation [id number] Z02.1 Health Concerns Section Related Observation LastModified by Organization Detai ls LastModified Time None Recorded Concern Status LastModified by Organization Details LastModified Time None Recorded Advance Directives Directive None Recorded Payers Insurance Date Sequence Insurance Name Policy Number Policy [employer] Covered Member ID [employer] Member ID Guarantor Name 05/06/2023 OC-ESCREEN Juve Adler [id number] Juve Adler
--- OUTSIDE RECORDS SUMMARY | 2025-05-24 11:50 | XMS_ITS ---
Author Name [facility] Organization Unknown Care Team Organization Name Specialty Phone Email Start Date End Da te [employer] 02/27/2025
== END 2025-05-24 11:52 | disposition home or self-care (01) ==
LOC: HO.HBS 10:54
PROVIDERS: PCP Physician Assistant Medical; Visit Provider Physician Assistant Surgical
DX: E66.9 Obesity, unspecified (principal); Z68.29 Body mass index [BMI] 29.0-29.9, adult; Z90.3 Acquired absence of stomach [part of]; Z98.84 Bariatric surgery status
CPT/HCPCS: 99214